=== PATIENT | female | born 1945 | race Caucasian/White ===

== ENCOUNTER 2017-01-08 14:07 | Inpatient (IN) | payer OTHER, MEDICARE ==
[2017-01-08] MEDS ORDERED: ONDANSETRON DISINTEGRATING 4 MG TAB PO PRN (15:05)
[2017-01-08] MEDS ORDERED: ONDANSETRON 4 MG/2 ML VIAL IVP PRN (15:05)
[2017-01-08] MEDS ORDERED: ACETAMINOPHEN 325 MG TAB PO PRN (15:05)
[2017-01-08] MEDS ORDERED: LACTULOSE 20 GM/30 ML UDCUP PO PRN (15:11)
[2017-01-08] MEDS ORDERED: MAGNESIUM HYDROXIDE 30 ML UDCUP PO PRN (15:11)
[2017-01-08] MEDS ORDERED: BISACODYL 10 MG SUPP PR PRN (15:11)
[2017-01-08] MEDS ORDERED: POLYETHYLENE GLYCOL 3350 17 GM PKT PO PRN (15:11)
[2017-01-08] MEDS ORDERED: ERTAPENEM 1 GM in NS 100 ML IV ONE (15:33)
--- NOTE | 2017-01-08 16:13 | GHP ---
[f rep st] HISTORY AND PHYSICAL DATE OF ADMISSION: 01/08/2017 CHIEF COMPLAINT: Lumbar diskitis. HISTORY OF PRESENT ILLNESS: Patient is a 71-year-old female who was transferred from [facility] today with a history of MSSA bacterermia and lumbar discitis, adrenal insufficiency, and hypothyroidism. Diagnosed with diskitis in October and has been on Ancef since discharge 11/13/[address] Solo with ID. She was seen at [facility] by Dr. Bailey and patient strongly preferred his care thus was transferred here. MRI 01/07/17 shows increased enhancement at L4-L5. She presented to ER, because, she suddenly developed severe pain from her lumbar region up to her neck which is different from her normal pain. Normally has burning sensation/numbness extending from left hip down the leg. She has had urinary incontinence since October, but denies bowel incontinence. No leg weakness, fevers, chills or sweats. No nausea, vomiting, diarrhea. No falls. No chest pain or shortness of breath. Was seen by ID at [facility] yesterday and they [facility]. Of note, she also underwent MRCP due to transaminitis and it showed significant thickening and inflammation involving the 2nd and 3rd portions of duodenum suggestive of duodenitis. Fluid extends to the right anterior perirenal space with a small amount of ascites around the liver. Demonstrated a 2 mm polyp or gallstone within the gallbladder. No evidence of cholecystitis or cholelithiasis. REVIEW OF SYSTEMS: I completed a 10-point review of systems, negative except as noted in HPI. PAST MEDICAL HISTORY: 1. Hypothyroidism. 2. Vertebral osteomyelitis on antibiotics since November 13, 2016. 3. Adrenal insufficiency. 4. Chronic pain with continuous opiate use. 5. Collagenous colitis. 6. Obesity. PAST SURGICAL HISTORY: . FAMILY HX: no CAD SOCIAL HISTORY: Lives in [place] with her who is disabled and 89. Denies alcohol, tobacco or illicits. Has 1 son. Her PCP is Dr. Parekh. Vending Supervisor is Dr. Lord. ALLERGIES: Compazine. MEDICATIONS: Awaiting reconciliation. PHYSICAL EXAM: VITAL SIGNS: Temperature 36.5, blood pressure 114/72, heart rate 80, respirations 16, 91% on 1 L. GENERAL: Patient appears tired. HEENT: PERRLA. EOMI. Very dry mucous membranes. CV: Regular rate and rhythm. No murmurs, gallops, or rubs. LUNGS: Clear to auscultation bilaterally. ABDOMEN: Soft, nontender, nondistended. Positive bowel sounds. : No suprapubic or CVA tenderness. MUSCULOSKELETAL: Decreased muscle strength left lower extremity. Mild lumbar tenderness over lumbar spine with palpation. NEURO: 2-12 intact. Reports normal sensation to touch bilaterally. Negative straight leg test. PSYCH: Alert and oriented x3. LABS: Pending here. IMAGING: Ultrasonogram abdomen 01/07/2017: 6 mm gallbladder wall polyp. Tiny amount of ascitic fluid along Morison pouch. MRI L-spine: Multilevel lumbar disk pathology. The appearance of the L4-L5 disk space has worsened compared to previous study. This is consistent with diskitis and osteomyelitis. There is an extensive enhancement of the anterior epidural space centered at L4-L5. There is no evidence of epidural abscess. MRCP shows significant thickening and inflammation involving the 2nd and 3rd portions of the duodenum suggestive of duodenitis. Fluids extends to the right anterior perirenal space with a small amount of ascites around the liver. 2 mm polyp or gallstone within dependent within the gallbladder. Diskitis and osteomyelitis at L4-L5 disk space. ASSESSMENT AND PLAN: 1. Progressive vertebral osteomyelitis: presented with worsening back pain over the last week. MRI shows increased enhancement at L4-L5. Dr. Bailey and Dr. Serrano are evaluating patient. Suspect she will require debridement given extensive course of abx and no improvement. Continue Invanz. Awaiting imaging and culture data from OSH. TTE October 2016 negative for endocarditis. PT/OT. 2. Right upper quadrant pain with transaminitis: intermittent problem since the patient's hospitalization in October. CT at that time was unrevealing for biliary pathology. MRCP 01/07/17 showed duodenal wall thickening suggestive of duodenitis. No evidence of cholecystitis. Repeating a CMP here. We will continue Invanz. 3. Acute on chronic pain: secondary to diskitis. We will continue her gabapentin and OxyContin with a bowel regimen. 4. Secondary adrenal insufficiency. followed by Dr. Lord as an outpatient. Cont hydrocortisone. 5. History of collagenous colitis. Continue budesonide. 6. Hypothyroid. Synthroid. 7. Diet regular. 8. DVT prophylaxis. 9. SCDs in case of upcoming intervention. Disp: requires inpatient admission given progressive diskitis warranting IV antibiotics and possible surgical intervention. /[id number]/MODL MTDD
[2017-01-08] MEDS: GABAPENTIN 300 MG CAP PO SCH ×2 (16:14→21:19)
[2017-01-08] MEDS: oxyCODONE IR 5 MG TAB PO PRN ×2 (16:14→19:34)
[2017-01-08] MEDS: NS 1,000 ML IV SCH (16:34)
[2017-01-08 17:22] LABS: ALANINE AMINOTRANSFERASE 61 IU/L (9-52); ALBUMIN 2.4 g/dL (3.5-5.0); ALKALINE PHOSPHATASE 462 IU/L (38-126); ANION GAP 6 mEq/L (8-16); ASPARTATE AMINOTRANSFERASE 91 IU/L (14-46); BILIRUBIN,TOTAL 2.4 mg/dL (0.1-1.4); CALCIUM 8.7 mg/dL (8.5-10.4); CARBON DIOXIDE 26 mEq/l (22-31); CHLORIDE 99 mEq/L (97-110); CREATININE 0.5 mg/dL (0.6-1.0); GLOMERULAR FILTRATION RATE > 60; GLUCOSE 83 mg/dL (70-100); SODIUM 131 mEq/L (134-144); TOTAL PROTEIN 4.9 g/dL (6.3-8.2)
[2017-01-08 17:23] LABS: HEMATOCRIT 38.2 % (38.0-47.0); HEMOGLOBIN 12.5 g/dL (12.6-16.3); MEAN CELL HEMOGLOBIN 30.6 pg (27.9-34.1); MEAN CELL HEMOGLOBIN CONCENTR. 32.7 g/dL (32.4-36.7); MEAN CELL VOLUME 93.6 fL (81.5-99.8); RED BLOOD CELL COUNT 4.08 10^6/uL (4.18-5.33)
[2017-01-08 17:45] LABS: BILIRUBIN-CONJUGATED 1.3 mg/dL (0.0-0.5); BILIRUBIN-UNCONJUGATED 1.1 mg/dL (0.0-1.1)
--- NOTE | 2017-01-08 20:54 | GCON ---
[f rep st] CONSULTATION INFECTIOUS DISEASE CONSULTATION. DATE OF CONSULTATION: 01/08/2017 REFERRING PHYSICIAN: Cherie Rose MD REASON FOR CONSULTATION: MSSA lumbar discitis. HISTORY OF PRESENT ILLNESS: The patient is a 71-year-old female who developed MSSA bacteremia assoc iated with lumbar discitis in mid October. She has been receiving care for her bacteremia and diskiti s at [facility] and has been followed by the Infectious Disease service there. The miguel ent has received treatment with cefazolin 6 g per day by continuous infusion which she was continuin g up until she was rehospitalized at [facility] over the last 48 hours. The patient describes de veloping the abrupt onset of severe low back pain 2 days ago with radiation to the neck. She had so me associated nausea as well. This prompted repeat evaluation at [facility] at which point in [facility] she was noted to have abnormal liver function tests with an alkaline phosphatase of 468, AST of 7 4 and ALT of 133 with a bilirubin of 2.0. These were increased when compared to her prior labs. Ad ditionally, her C-reactive protein was noted to be substantially increased. On 12/30/2016, her C-re active protein was noted to be 11 with a normal range of less than 10. The patient underwent furthe r evaluation at [facility] including MRCP which showed evidence of duodenitis but no evidence of biliary obstruction. Her cefazolin was changed to ertapenem for activity against biliary pathogens and continued activity against MSSA. Consideration was also given to cefazolin as a potential etiol ogy for her liver enzyme abnormalities. Blood cultures were repeated and currently are no growth to date. She also underwent repeat MRI of the spine which shows worsening vertebral osteomyelitis wit h anterior epidural enhancement but no epidural abscess. The patient has been followed by Dr. Jean barth from Neurosurgery and she requested transfer to [facility] for ongoing care by Castillo Bailey. She has had an interim MRI in November with the results of that MRI not available to me tocastillo dillard. She does not feel like she has had significant improvement in her back pain during the course o f her treatment. Evaluation at [facility] also revealed an elevated lipase of 781. She does not describe having any fevers, chills, or night sweats. She has been using saccaromyces and notes yulissa t she has not experienced diarrhea with its use. Given the above findings, she is now seen for infe ctious disease consultation. PAST MEDICAL HISTORY: Collagenous colitis on chronic steroids, adrenal insufficiency related to chr onic steroid use, MSSA bacteremia and diskitis as outlined above. Patient did undergo DARRYN at [facility] during initial bacteremia which showed no evidence of endocarditis. Idiopathic lower extrem ity edema. PAST SURGICAL HISTORY: Tonsillectomy. CURRENT MEDICATIONS: Ertapenem 1 g IV daily, Pepcid 20 mg p.o. t.i.d., Neurontin 900 mg p.o. t.i.d. , hydrocortisone 10 mg p.o. b.i.d., Synthroid 125 mcg p.o. daily, OxyContin 20 mg p.o. b.i.d., Singu lair 5 mg p.o. b.i.d. ALLERGIES: Compazine. SOCIAL HISTORY: Patient does not smoke or drink alcohol. She lives in [place]. FAMILY HISTORY: Cerebrovascular disease. REVIEW OF SYSTEMS: Patient does note numbness and tingling in her feet which she has attributed to Neurontin. She has had urinary incontinence over the last several weeks after initially having urin emir retention. Unless otherwise noted, remainder of a 10 system review is unremarkable. PHYSICAL EXAMINATION: VITAL SIGNS: Temperature 36.6, heart rate 90, respiratory rate 18, blood pre ssure 113/55, oxygen saturation 90% percent on room air. GENERAL: Patient is an obese female in no acute distress. She appears nontoxic. She does have pain with movement. HEENT: There is no scle ral icterus, conjunctival injection, or conjunctival petechiae. Oropharynx is clear without lesions . Dentition is in fair repair. There is no nasal discharge. There is no tenderness of the frontal , maxillary, or mastoid area. NECK: Supple without lymphadenopathy or palpable thyromegaly. CHEST : Clear to auscultation bilaterally without adventitious sounds. Respiratory effort is normal. CA RDIOVASCULAR: Regular rate and rhythm without murmurs, gallops, or rubs. ABDOMEN: Soft, nontender , nondistended. There is no palpable organomegaly. Bowel sounds are present. MUSCULOSKELETAL: Th ere is no cyanosis or clubbing. There is 1+ edema of the lower extremities bilaterally. BACK: The re is no tenderness over the cervical, thoracic, or lumbosacral spine to palpation. LYMPHATICS: Th ere are no cervical or supraclavicular nodes. SKIN: Scattered ecchymoses over the upper extremitie s. There is no stigmata of endocarditis. PICC line is present in left upper extremity with no eryt sarina, edema, or drainage. NEUROLOGIC: Patient is alert and interacts appropriately examiner. Cran ial nerves 2-12 are grossly intact. Muscle tone and bulk are normal. Motor strength is 4+/5 in bot h lower extremities. LABORATORY DATA: White blood cell count 16.0, hematocrit 38.2, platelets 188. Differential is not available; creatinine 0.5, bilirubin 2.4, AST 91, ALT 61, alkaline phosphatase 462, albumin 2.4. Bl ood cultures are pending from [facility], MRI at [facility] as outlined in history of present illness. MRCP as outlined in the history of present illness. IMPRESSION: 1. Methicillin sensitive Staphylococcus aureus bacteremia and diskitis with worsening back pain. T he patient has received approximately 9 weeks of cefazolin which represents atypical full treatment course for vertebral osteomyelitis. The MRI report suggests radiographically this appears to be wor sening. Failures of medical therapy typically are related to epidural abscess formation or progress claude bone disease with poor antibiotic penetration. I have asked for her disc to be loaded on our SOPATec C system so these can be reviewed with our Radiologist, and Dr. Bailey. She currently is covered by ertapenem in terms of ongoing antibiotic therapy. 2. Increased liver enzymes with cholestatic pattern: MRCP shows no biliary obstruction. This may be drug related cholestasis with cefazolin a possibility. Given the elevation in lipase, concomitan t contribution from pancreatitis is also a consideration which also could be associated with worseni ng back pain. Her cefazolin has been discontinued, she is now on ertapenem. RECOMMENDATIONS: 1. Continue ertapenem pending blood cultures from [facility]. If blood cultures remain negative , would favor transitioning back to more typical staphylococcal therapy such as vancomycin. 2. Await MRIs from October, November and December to be loaded onto our PAC system so these can be reviewed w [facility]. It will be important to try to discern if this represents worsening diskitis/os teomyelitis or if any drainable focus is present. 3. We will review above findings with Dr. Bailey. 4. Follow blood cultures at [facility] tomorrow. 5. Continue to follow liver function over time after discontinuation of cephazolin. Thank you for this consultation. We will continue to follow patient with you. /[id number]/MODL
[2017-01-08] MEDS: MONTELUKAST SODIUM 10 MG TAB PO SCH (21:19)
[2017-01-08] MEDS: SENNOSIDES/DOCUSATE SODIUM TAB PO SCH (21:19)
[2017-01-08] MEDS: FAMOTIDINE 20 MG TAB PO SCH (21:19)
[2017-01-08] MEDS ORDERED: GABAPENTIN 300 MG CAP PO SCH (22:00)
[2017-01-09] MEDS: NS 1,000 ML IV SCH (04:41)
[2017-01-09 05:02] LABS: HEMOGLOBIN 11.6 g/dL (12.6-16.3); MEAN CELL HEMOGLOBIN 30.1 pg (27.9-34.1); MEAN CELL HEMOGLOBIN CONCENTR. 32.2 g/dL (32.4-36.7); MEAN CELL VOLUME 93.3 fL (81.5-99.8); RED BLOOD CELL COUNT 3.86 10^6/uL (4.18-5.33); RED CELL DISTRIBUTION WIDTH 13.1 % (11.5-15.2)
[2017-01-09] MEDS: oxyCODONE IR 5 MG TAB PO PRN ×3 (05:04→21:16)
[2017-01-09 05:27] LABS: ANION GAP 6 mEq/L (8-16); CALCIUM 8.3 mg/dL (8.5-10.4); CARBON DIOXIDE 25 mEq/l (22-31); CHLORIDE 103 mEq/L (97-110); CREATININE 0.5 mg/dL (0.6-1.0); GLOMERULAR FILTRATION RATE > 60; GLUCOSE 82 mg/dL (70-100); POTASSIUM 3.6 mEq/L (3.5-5.2); SODIUM 134 mEq/L (134-144)
[2017-01-09] MEDS: LEVOTHYROXINE 125 MCG TAB PO SCH (07:44)
--- NOTE | 2017-01-09 08:00 | GCON ---
[f rep st] CONSULTATION CONSULTATION HISTORY AND PHYSICAL. DATE OF CONSULTATION: 01/09/2017 CHIEF COMPLAINT: Lumbar diskitis L4-5. HISTORY OF PRESENT ILLNESS: The patient is a 71-year-old female who was admitted to the Internal Me dicine service after she was transferred from [facility]. She has a history of MSSA baldomero teremia, lumbar diskitis, adrenal insufficiency and hypothyroidism. She was diagnosed with diskitis in October of this year and has been on Ancef for approximately the last 8 weeks. She followed up [facility] Dr. Solo with ID. She was seen at [facility] with Dr. Bailey and the patient strongly pref erred his care and thus was transferred from [facility] here to [facility] yester day. She presented to the ER because she suddenly developed severe pain from her lumbar region to er neck which was different from her normal pain. She describes normally has some burning sensation and numbness extending from the left hip down the leg. She has had urinary incontinence since Freddie h but denies any bowel incontinence. She denies any leg weakness. She is able to ambulate but has a terrible lower back pain and also has pain in the left leg, mainly in the anterior and lateral thi gh. She was switched from her normal antibiotic to Invanz on 01/08. She also has a history of unde rgoing an MRCP due to transaminitis that showed significant thickening and inflammation involving th e 2nd and 3rd portion of the duodenum, suggestive of duodenitis. REVIEW OF SYSTEMS: Complete 10-point review of systems was reviewed and negative except noted in HP I. Also of note, she denies any chest pain or shortness of breath. No abdominal pain. No okeefe es. PAST MEDICAL HISTORY: Significant for the followin. Hypothyroidism. 2. Vertebral osteomyelitis on antibiotics since October of 2016. 3. Adrenal insufficiency. 4. Chronic pain with continuous opioid use. 5. Colitis. 6. Obesity. PAST SURGICAL HISTORY: . MEDICATIONS: Please see med rec. ALLERGIES: Compazine. SOCIAL HISTORY: The patient lives in [place] with her who is disabled. She denies any a lcohol or drug abuse. No tobacco use. She has 1 son. Her PCP is Dr. Parekh. Her Endocrinolog ist is Dr. Lord. PHYSICAL EXAMINATION: GENERAL: This is an awake, alert, oriented female in no acute distress. VIT AL SIGNS: Most recent vital signs, 116/71 with a MAP of 86, heart rate of 83, 16 respirations, 96% on 1 L. Temperature 36.6. HEENT: Head is normocephalic, atraumatic. Pupils are equal, round, jamshid ctive to light. EOMIs intact. Full visual maharaj by confrontation. Ears are patent. Nose is betts nt. NECK: Soft, supple. No midline tenderness. Full range of motion in flexion, extension, later al bending, rotation. RESPIRATORY: Deferred. CARDIAC: Deferred. ABDOMEN: Soft, nontender. No peritoneal signs. and RECTAL: Deferred. NEURO: Patient is awake, alert, oriented to name, walt ce, location, date, time, and situation. Memory is intact to immediate, past, and current events. Speech: No aphasia, dysarthria or dysphonia. Cranial nerves 2-12 grossly intact. Motor: Patient has 5/5 strength in all muscle groups of bilateral upper and lower extremities to include deltoids, biceps, triceps, brachioradialis, wrist flexors and extensors, garnett room worker intrinsic fingers, iliopsoas, qu adriceps, hamstring, plantar flexion, dorsiflexion, EHL testing. Sensation is grossly intact to lig ht touch throughout all dermatome distributions upper and lower extremities. Negative straight leg raise. Negative MARY test. Reflexes of biceps, triceps, brachioradialis, knee jerks, and ankle je rk are 2+/4. Toes are downgoing bilaterally. [employer] negative. Babinski negative. No evidence of clonus. MEDICAL DECISION MAKING/DIAGNOSTIC STUDIES: Laboratory tests obtained 01/09/2017 show a white count of 13.04 with a hemoglobin and hematocrit of 11.6 and 36.0 with a platelet count of 191. Chemistry on 01/09/2017, sodium 134, potassium 3.6, chloride 103, CO2 of 25, BUN 14, creatinine 0.5 and a glu cose of 82. MRI of the lumbar spine shows multilevel lumbar pathology appearance of an L4-5 disk space has worse les compared to previous studies, consistent with diskitis and osteomyelitis. There is extensive en hancement of the anterior epidural space centered at L4-5. No evidence of epidural abscess. IMPRESSION: 1. Acute on chronic pain. 2. Adrenal insufficiency. 3. Colitis. 4. Hypothyroidism. 5. Obesity. 6. Vertebral osteomyelitis L4-5. PLAN AND DISCUSSION: The patient is a 71-year-old female admitted to the internal medicine service and Infectious Disease was consulted. She has a worsening infection that appears on an MRI of her l umbar spine at L4-5. Dr. Bailey will speak with Dr. Serrano regarding further medical treatment versus surgical treatment for this. We will review through her recent MRI and develop a plan accordingly. I spoke with her briefly about the need for surgery and she definitely would consider this. Would like to speak with Dr. Bailey's regarding plan once that is obtained. All questions and concerns w ere answered. Patient understands and agrees. /[id number]/MODL
[2017-01-09] MEDS ORDERED: ERTAPENEM 1 GM in NS 100 ML IV SCH (09:00)
[2017-01-09] MEDS ORDERED: BUDESONIDE 3 MG EC CAP PO SCH (09:00)
[2017-01-09] MEDS: GABAPENTIN 300 MG CAP PO SCH ×3 (09:00→21:13)
[2017-01-09] MEDS: BUDESONIDE 0.5 MG PO SCH (09:01)
[2017-01-09] MEDS: MONTELUKAST SODIUM 10 MG TAB PO SCH ×2 (09:01→21:14)
[2017-01-09] MEDS: HYDROCORTISONE 10 MG TAB PO SCH ×2 (09:01→14:19)
[2017-01-09] MEDS: FAMOTIDINE 20 MG TAB PO SCH ×3 (09:01→21:14)
[2017-01-09] MEDS: SENNOSIDES/DOCUSATE SODIUM TAB PO SCH ×2 (09:04→21:21)
[2017-01-09 10:06] LABS: ALBUMIN 2.1 g/dL (3.5-5.0); BILIRUBIN,TOTAL 1.4 mg/dL (0.1-1.4); BILIRUBIN-CONJUGATED 0.9 mg/dL (0.0-0.5); BILIRUBIN-UNCONJUGATED 0.5 mg/dL (0.0-1.1); TOTAL PROTEIN 4.4 g/dL (6.3-8.2)
--- NOTE | 2017-01-09 10:19 | PCMIDPN ---
Assessment/Plan: Assessment/Plan: * Lumbar diskitis with concomitant MSSA bacteremia: MRI images reviewed showing progressive destructive changes at L4. Also has progressive spinal stenosis with epidural enhancement but no abscess. Patient now has received full treatment course of cefazolin. Given progression despite course of cefazolin, think this will require surgical debridement for resolution. Have discussed with Dr. Bailey with plans tentatively to proceed with debridement on Friday. Given possibility of cholestatic hepatitis with cefazolin, will transition to vancomycin for continued IV antibiotic therapy. * Abnormal liver function tests: MRCP does show some inflammatory change of pancreas as well and lipase previously elevated. Potentially these findings are due to cefazolin although passage of stone also of consideration. Blood cultures at [facility] are negative. Will therefore discontinue ertapenem and modify treatment for diskitis as outlined above. Follow up repeat LFTs and lipase today. Time spent, greater than 35 minutes, of which half was spent in education/ counseling/coordination of care related to progressive lumbar diskitis and abnormal liver function test. 01/09/17 10:15 01/09/17 10:18 01/09/17 10:20 Subjective: Patient with persistent low back pain. No abdominal pain. Objective: Vital Signs Temp Pulse Resp BP Pulse Ox 36.8 C 93 20 132/70 H 90 L 01/09/17 07:57 01/09/17 07:57 01/09/17 07:57 01/09/17 07:57 01/09/17 07:57 Laboratory Results 01/09/17 04:40 01/09/17 04:40 Ertapenem # 3 Blood cultures at [facility] no growth to date (spoke with their microbiology lab this a.m.) MRIs of spine reviewed and interpreted by me with Radiology this a.m. showing progressive bony destruction at L4 with persistent disc fluid and enhancement; epidural enhancement present with spinal canal narrowing but no epidural abscess Pancreatic inflammatory change on MRCP also evident - Physical Exam General Appearance: alert, no apparent distress EENT: pharynx normal, No conjunctival petechiae Respiratory: lungs clear, No respiratory distress Cardiac/Chest: regular rate, rhythm, systolic murmur (2/6 left upper sternal border) Abdomen: non-tender, No distended Back: spine tenderness (Lumbar region) ICD10 Worksheet Patient Problems: Problems Problem Status Onset Bacteremia due to Staphylococcus aureus Acute Vertebral osteomyelitis Acute Lumbar discitis Acute
--- NOTE | 2017-01-09 14:01 | HOSPPROG ---
Hospitalist Progress Note Assessment/Plan: 71y female transferred from [facility]. This is my first encounter with this pt. Chart reviewed. D/W Dr noel. * Lumbar diskitis with concomitant MSSA bacteremia: MRI images show progressive destructive changes at L4. progressive spinal stenosis with epidural enhancement but no abscess. Patient has received full treatment course of cefazolin. Given progression despite course of cefazolin may require surgical debridement for resolution. Plan for proceed with debridement on Friday. Given possibility of cholestatic hepatitis with cefazolin, will transition to vancomycin for continued IV antibiotic therapy. * Abnormal liver function tests: MRCP does show some inflammatory change of pancreas as well and lipase previously elevated. Potentially these findings are due to cefazolin although passage of stone also of consideration. Blood cultures at [facility] are negative. repeat LFTs and lipase today * Cough order CXR per pt request mucinex * Dispo unclear, need further treatment and evaluation Subjective: Up in chair. Questions answered. No pain currently. Objective: Vital Signs Temp Pulse Resp BP Pulse Ox 36.8 C 93 20 132/70 H 90 L 01/09/17 07:57 01/09/17 07:57 01/09/17 07:57 01/09/17 07:57 01/09/17 07:57 Laboratory Results 01/09/17 04:40 01/09/17 04:40 - Physical Exam Constitutional: appears nourished, not in pain, obese Eyes: PERRL, anicteric sclera, EOMI Ears, Nose, Mouth, Throat: moist mucous membranes, hearing normal, ears appear normal Cardiovascular: No JVD, No tachycardia, No edema Respiratory: no respiratory distress, no rales or rhonchi, reduced air movement Gastrointestinal: No tenderness, No ascites, No guarding Skin: warm, normal color, No erythema Musculoskeletal: normal joint ROM, no joint effusions, generalized weakness Neurologic: AAOx3 Psychiatric: interacting appropriately, not anxious, not encephalopathic ICD10 Worksheet Patient Problems: Problems Problem Status Onset Bacteremia due to Staphylococcus aureus Acute Lumbar discitis Acute Vertebral osteomyelitis Acute
[2017-01-09] MEDS: guaiFENesin 600 MG TAB.ER PO SCH ×2 (14:19→21:14)
[2017-01-10] MEDS: oxyCODONE IR 5 MG TAB PO PRN ×4 (03:39→22:39)
[2017-01-10] MEDS: LEVOTHYROXINE 125 MCG TAB PO SCH (05:24)
--- NOTE | 2017-01-10 08:21 | PCMIDPN ---
Assessment/Plan: #MSSA bacteremia and lumbar diskitis/OM with focus at L4, progressive destructive lesions despite full course of 8 weeks of IV cefazolin. concern over cholestatic hepatitis with cefazolin therefore started on vancomycin today. CRP still quite elevated, unclear if solely due to discitis/OM, see details below. --vancomycin started today, 1gm IV q12h --surgery planned for Friday, appreciate neurosurg involvement #Elevated LFTs : AST/ALT improved, AP still up, T bili improved. No clear abdominal pain. If AP remains elevated, may have consider additional imaging. #productive cough with normal chest x-ray other than small pleural effusions bilaterally. Mild hypoxia. If symptoms persistent #leukocytosis: Stable Case discussed with Vaishali Hilliard NP 01/10/17 14:34 Subjective: the patient describes intermittent wheezes and productive cough, concerned about delay for surgical intervention on Friday. No subjective fevers or chills. No abdominal pain no diarrhea, no itching patient also expresses concern over toxicity related to vancomycin Objective: Vital Signs Temp Pulse Resp BP Pulse Ox 36.7 C 78 18 107/64 97 01/10/17 07:42 01/10/17 07:42 01/10/17 07:42 01/10/17 07:42 01/10/17 07:42 Laboratory Results 01/09/17 04:40 01/09/17 04:40 01/09/17 01/10/17 01/11/17 05:59 05:59 05:59 Intake Total 650 Balance 650 Laboratory Tests 01/08/17 01/09/17 16:30 04:40 Conjugated Bilirubin 1.3 H 0.9 H AST 91 H 73 H ALT 61 H 92 H Alkaline Phosphatase 462 H 423 H Laboratory Tests 01/10/17 01/10/17 11:35 11:35 WBC 13.48 H Neut % (Auto) 81.3 H Lymph % (Auto) 4.3 L Creatinine 0.5 L AST 60 H ALT 50 Alkaline Phosphatase 568 H C-Reactive Protein 251.9 H - Physical Exam General Appearance: alert, no apparent distress EENT: dry mucous membranes, No pharyngeal erythema, No tonsillar exudate, No thrush Respiratory: lungs clear, No accessory muscle use, No crackles, No wheezing Neck: supple, No lymphadenopathy (L), No lymphadenopathy (R) Cardiac/Chest: regular rate, rhythm, systolic murmur Extremities: pedal edema Abdomen: normal bowel sounds, non-tender, soft Pelvic Exam: No crabtree Skin: No rash Neuro/Psych: alert, normal mood/affect, oriented x 3 - Line/s LUE PICC Lines: No drainage, No erythema - Time Spent With Patient Time Spent with Patient: greater than 35 minutes Time Spent with Patient: Greater than 35 minutes spent on this patients care, greater than 50% of time spent counseling, educating, and coordinating care regarding the above mentioned plan. ICD10 Worksheet Patient Problems: Problems Problem Status Onset Bacteremia due to Staphylococcus aureus Acute Lumbar discitis Acute Vertebral osteomyelitis Acute
[2017-01-10] MEDS: VANCOMYCIN HCL/NORMAL SALINE 250 ML IV SCH ×2 (08:47→21:30)
[2017-01-10] MEDS: GABAPENTIN 300 MG CAP PO SCH ×3 (08:47→21:28)
[2017-01-10] MEDS: guaiFENesin 600 MG TAB.ER PO SCH ×2 (08:48→21:28)
[2017-01-10] MEDS: MONTELUKAST SODIUM 10 MG TAB PO SCH ×2 (08:48→21:28)
[2017-01-10] MEDS: SENNOSIDES/DOCUSATE SODIUM TAB PO SCH ×2 (08:48→21:30)
[2017-01-10] MEDS: HYDROCORTISONE 10 MG TAB PO SCH ×2 (08:48→14:48)
[2017-01-10] MEDS: FAMOTIDINE 20 MG TAB PO SCH ×3 (08:48→21:29)
[2017-01-10] MEDS: BUDESONIDE 0.5 MG PO SCH (09:33)
--- NOTE | 2017-01-10 10:32 | NEUSURGPN ---
Assessment/Plan: A: 71 yo F with discitis at L45 Plan: -To OR on Friday with Dr Bailey for L3-5 laminectomy with possible fusion -PT/OT -Pain management -Consents left at bedside -NPO friday at midnight for sx Friday -Pt d/w Dr Bailey -Pt understands plan for surgery -Call NS with any issues - we will sign off for and see again on Friday Subjective: Pt resting in bed, understands plan for surgery. Pain well managed if she doens' t move much. Objective: AAOx3 NAD VSS MAEx4 Motor 5/5 BLE +LT Urinary Catheter in Place: No - Physician Discussed Patient with : [facility] Physical Exam - Vitals, I&O, Labs I and O 01/09/17 01/10/17 01/11/17 05:59 05:59 05:59 Intake Total 650 Balance 650 Weight 79.4 kg Intake: Oral (ml) 650 Other: Intake Quantity Yes Yes Sufficient Number of Voids Toilet 1 2 Vital Signs Temp Pulse Resp BP Pulse Ox 36.7 C 78 18 107/64 97 01/10/17 07:42 01/10/17 07:42 01/10/17 07:42 01/10/17 07:42 01/10/17 07:42 Laboratory Results 01/09/17 04:40 01/09/17 04:40 ICD10 Worksheet Patient Problems: Problems Problem Status Onset Bacteremia due to Staphylococcus aureus Acute Lumbar discitis Acute Vertebral osteomyelitis Acute
[2017-01-10 11:45] LABS: % IMMATURE GRANULYOCYTES 1.7 % (0.0-1.1); ABSOLUTE IMMATURE GRANULOCYTES 0.23 10^3/uL (0.00-0.10); ADD DIFF? NO; ADD MORPH? NO; ADD SCAN? NO; ATYPICAL LYMPHOCYTE FLAG 0 (0-99); FRAGMENT RBC FLAG 0 (0-99); HEMATOCRIT 34.9 % (38.0-47.0); HEMOGLOBIN 11.6 g/dL (12.6-16.3); LEFT SHIFT FLG 20 (0-99); LIPEMIA HEMOLYSIS FLAG 80 (0-99); MEAN CELL HEMOGLOBIN CONCENTR. 33.2 g/dL (32.4-36.7); MEAN CELL VOLUME 93.3 fL (81.5-99.8); MEAN PLATELET VOLUME 10.5 fL (8.7-11.7); PLATELET CLUMPS FLAG 10 (0-99); PLATELET COUNT 184 10^3/uL (150-400); RED BLOOD CELL COUNT 3.74 10^6/uL (4.18-5.33); RED CELL DISTRIBUTION WIDTH 13.2 % (11.5-15.2)
--- NOTE | 2017-01-10 11:52 | HOSPPROG ---
Hospitalist Progress Note Assessment/Plan: 71y female transferred from [facility]. * Lumbar diskitis with MSSA bacteremia: MRI images show progressive destructive changes at L4. progressive spinal stenosis with epidural enhancement but no abscess. Patient has received full treatment course of cefazolin. Given progression despite course of cefazolin require surgical debridement for resolution. Plan for proceed with debridement on Friday. Given possibility of cholestatic hepatitis with cefazolin, will transition to vancomycin for continued IV antibiotic therapy. * Abnormal liver function tests: MRCP does show some inflammatory change of pancreas as well and lipase previously elevated. Potentially these findings are due to cefazolin although passage of stone also of consideration. Blood cultures at [facility] are negative. repeat LFTs and lipase today * Cough CXR shows ATX mucinex breathing treatment, IS * Dispo unclear, need further treatment and evaluation Subjective: Feeling very tired. Concerned about cough. Cough hurts her back. Objective: Vital Signs Temp Pulse Resp BP Pulse Ox 36.7 C 78 18 107/64 97 01/10/17 07:42 01/10/17 07:42 01/10/17 07:42 01/10/17 07:42 01/10/17 07:42 Laboratory Results 01/10/17 11:35 01/09/17 01/10/17 01/11/17 05:59 05:59 05:59 Intake Total 650 Balance 650 - Physical Exam Constitutional: appears nourished, chronically ill appearing, obese Eyes: PERRL, anicteric sclera, EOMI Ears, Nose, Mouth, Throat: moist mucous membranes, hearing normal, ears appear normal Cardiovascular: No JVD, No tachycardia, No edema Respiratory: no respiratory distress, no rales or rhonchi, reduced air movement Gastrointestinal: No tenderness, No ascites, No guarding Skin: warm, normal color, No erythema Musculoskeletal: no joint effusions, muscular tenderness, generalized weakness Neurologic: AAOx3 Psychiatric: interacting appropriately, not anxious, not encephalopathic, thought process linear ICD10 Worksheet Patient Problems: Problems Problem Status Onset Bacteremia due to Staphylococcus aureus Acute Vertebral osteomyelitis Acute Lumbar discitis Acute
[2017-01-10 12:44] LABS: ALANINE AMINOTRANSFERASE 50 IU/L (9-52); ALBUMIN 2.3 g/dL (3.5-5.0); ALKALINE PHOSPHATASE 568 IU/L (38-126); ANION GAP 7 mEq/L (8-16); ASPARTATE AMINOTRANSFERASE 60 IU/L (14-46); BILIRUBIN,TOTAL 1.3 mg/dL (0.1-1.4); CALCIUM 8.5 mg/dL (8.5-10.4); CARBON DIOXIDE 26 mEq/l (22-31); CHLORIDE 98 mEq/L (97-110); CREATININE 0.5 mg/dL (0.6-1.0); GLOMERULAR FILTRATION RATE > 60; GLUCOSE 93 mg/dL (70-100); POTASSIUM 3.8 mEq/L (3.5-5.2); SODIUM 131 mEq/L (134-144); TOTAL PROTEIN 4.8 g/dL (6.3-8.2)
[2017-01-10 13:07] LABS: C-REACTIVE PROTEIN 251.9 mg/L (<10.0)
[2017-01-11] MEDS: LEVOTHYROXINE 125 MCG TAB PO SCH (05:12)
[2017-01-11] MEDS: oxyCODONE IR 5 MG TAB PO PRN ×2 (05:26→16:16)
[2017-01-11 05:39] LABS: % IMMATURE GRANULYOCYTES 2.5 % (0.0-1.1); ABSOLUTE IMMATURE GRANULOCYTES 0.29 10^3/uL (0.00-0.10); ADD DIFF? NO; ADD MORPH? NO; ADD SCAN? NO; ATYPICAL LYMPHOCYTE FLAG 0 (0-99); FRAGMENT RBC FLAG 0 (0-99); HEMATOCRIT 36.2 % (38.0-47.0); HEMOGLOBIN 11.7 g/dL (12.6-16.3); LEFT SHIFT FLG 20 (0-99); LIPEMIA HEMOLYSIS FLAG 80 (0-99); MEAN CELL HEMOGLOBIN 30.2 pg (27.9-34.1); MEAN CELL HEMOGLOBIN CONCENTR. 32.3 g/dL (32.4-36.7); MEAN CELL VOLUME 93.5 fL (81.5-99.8); MEAN PLATELET VOLUME 10.5 fL (8.7-11.7); PLATELET CLUMPS FLAG 0 (0-99); PLATELET COUNT 233 10^3/uL (150-400); RED BLOOD CELL COUNT 3.87 10^6/uL (4.18-5.33); RED CELL DISTRIBUTION WIDTH 13.2 % (11.5-15.2)
[2017-01-11 05:53] LABS: ALANINE AMINOTRANSFERASE 43 IU/L (9-52); ALBUMIN 2.5 g/dL (3.5-5.0); ALKALINE PHOSPHATASE 601 IU/L (38-126); ANION GAP 9 mEq/L (8-16); ASPARTATE AMINOTRANSFERASE 48 IU/L (14-46); CALCIUM 8.7 mg/dL (8.5-10.4); CARBON DIOXIDE 26 mEq/l (22-31); CHLORIDE 101 mEq/L (97-110); CREATININE 0.5 mg/dL (0.6-1.0); GLOMERULAR FILTRATION RATE > 60; GLUCOSE 73 mg/dL (70-100); POTASSIUM 3.4 mEq/L (3.5-5.2); SODIUM 136 mEq/L (134-144); TOTAL PROTEIN 4.8 g/dL (6.3-8.2)
[2017-01-11] MEDS: VANCOMYCIN HCL/NORMAL SALINE 250 ML IV SCH ×2 (07:49→21:11)
[2017-01-11] MEDS: HYDROCORTISONE 10 MG TAB PO SCH ×2 (08:10→16:15)
[2017-01-11] MEDS: GABAPENTIN 300 MG CAP PO SCH ×3 (08:11→21:12)
[2017-01-11] MEDS: guaiFENesin 600 MG TAB.ER PO SCH ×2 (08:11→21:11)
[2017-01-11] MEDS: FAMOTIDINE 20 MG TAB PO SCH ×3 (08:11→21:11)
[2017-01-11] MEDS: MONTELUKAST SODIUM 10 MG TAB PO SCH ×2 (08:15→21:11)
[2017-01-11] MEDS: BUDESONIDE 0.5 MG PO SCH (08:16)
--- NOTE | 2017-01-11 13:46 | HOSPPROG ---
Hospitalist Progress Note Assessment/Plan: 71-year-old transferred from [facility] where she was being treated for lumbar diskitis with IV cefazolin. she was transferred here after progressive disease was noted on follow-up imaging, she also developed elevated LFTs thought secondary to the cefazolin. # lumbar diskitis at L4 with MSSA bacteremia, she has already undergone a full course of 8 weeks of IV cefazolin. * Vanco 1 g IV q.12 hours * appreciate ID follow-up * surgery planned for Friday # elevated LFTs, enzymes improved, alk-phos still elevated. No abdominal pain. Likely secondary to cephazolin will continue to follow. # Respiratory symptoms, unremarkable chest x-ray with small bilateral effusions. exam is normal today, could consider nebulizers if she becomes hypoxic. 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 Subjective: patient new to pr chart reviewed, back pain adequately controlled no SOB, or chest pain. no abdo pain Objective: Vital Signs Temp Pulse Resp BP Pulse Ox 36.9 C 79 26 H 111/60 95 01/11/17 08:51 01/11/17 08:51 01/11/17 08:51 01/11/17 08:51 01/11/17 08:51 Laboratory Results 01/11/17 05:00 01/11/17 05:00 01/10/17 01/11/17 01/12/17 05:59 05:59 05:59 Intake Total 650 450 Balance 650 450 - Physical Exam Constitutional: chronically ill appearing, obese, uncomfortable Eyes: PERRL, anicteric sclera, EOMI Ears, Nose, Mouth, Throat: moist mucous membranes Cardiovascular: regular rate and rhythym, no murmur, rub, or gallop Respiratory: no respiratory distress, no rales or rhonchi, clear to auscultation , No expiratory wheeze Gastrointestinal: soft, non-tender abdomen Genitourinary: no bladder fullness Skin: warm Neurologic: AAOx3 Psychiatric: interacting appropriately, not anxious, not encephalopathic, No anxious, No depressed ICD10 Worksheet Patient Problems: Problems Problem Status Onset Bacteremia due to Staphylococcus aureus Acute Vertebral osteomyelitis Acute Lumbar discitis Acute
--- NOTE | 2017-01-11 14:52 | PCMIDPN ---
Assessment/Plan: Assessment/Plan: 1. MSSA bacteremia with lumbar diskitis/osteomyelitis: - s/p 8 weeks of cefazolin---now on vanco -for surgery on Friday. -wbc improved. -creatinine stable. -will order trough for this evening - 2. Elevated LFT's - thought to be secondary to Ancef -overall improved , although alk phos going up. nonspecific ,. could be biliary related or bone related -will check USG to further evaluate. meds vanco 1g q12- 01/10/17 Subjective: Afebrile. Denies sob, abd pain or diarrhea. slight decrease in appetite. denies nausea. ongoing back pain. Objective: Vital Signs Temp Pulse Resp BP Pulse Ox 36.9 C 79 26 H 111/60 95 01/11/17 08:51 01/11/17 08:51 01/11/17 08:51 01/11/17 08:51 01/11/17 08:51 Laboratory Results 01/11/17 05:00 01/11/17 05:00 01/10/17 01/11/17 01/12/17 05:59 05:59 05:59 Intake Total 650 450 Balance 650 450 C-Reactive Protein 251.9 mg/L (<10.0) H 01/10/17 11:35 - Physical Exam General Appearance: alert, no apparent distress Respiratory: lungs clear Cardiac/Chest: regular rate, rhythm Extremities: No swelling Abdomen: normal bowel sounds, non-tender, soft, No distended Skin: No rash ICD10 Worksheet Patient Problems: Problems Problem Status Onset Bacteremia due to Staphylococcus aureus Acute Lumbar discitis Acute Vertebral osteomyelitis Acute
[2017-01-11] MEDS: SENNOSIDES/DOCUSATE SODIUM TAB PO SCH ×2 (15:38→21:11)
[2017-01-12] MEDS: LEVOTHYROXINE 125 MCG TAB PO SCH (05:21)
[2017-01-12 05:46] LABS: ADD DIFF? YES; ADD MORPH? NO; ADD SCAN? NO; ATYPICAL LYMPHOCYTE FLAG 0 (0-99); FRAGMENT RBC FLAG 0 (0-99); HEMATOCRIT 33.5 % (38.0-47.0); HEMOGLOBIN 10.9 g/dL (12.6-16.3); LEFT SHIFT FLG 40 (0-99); LIPEMIA HEMOLYSIS FLAG 80 (0-99); MEAN CELL HEMOGLOBIN CONCENTR. 32.5 g/dL (32.4-36.7); MEAN CELL VOLUME 92.3 fL (81.5-99.8); MEAN PLATELET VOLUME 9.9 fL (8.7-11.7); PLATELET CLUMPS FLAG 10 (0-99); PLATELET COUNT 250 10^3/uL (150-400); RED BLOOD CELL COUNT 3.63 10^6/uL (4.18-5.33); RED CELL DISTRIBUTION WIDTH 13.2 % (11.5-15.2)
[2017-01-12 05:52] LABS: ALANINE AMINOTRANSFERASE 51 IU/L (9-52); ALBUMIN 2.1 g/dL (3.5-5.0); ALKALINE PHOSPHATASE 575 IU/L (38-126); ANION GAP 6 mEq/L (8-16); ASPARTATE AMINOTRANSFERASE 57 IU/L (14-46); BILIRUBIN,TOTAL 0.7 mg/dL (0.1-1.4); CALCIUM 8.5 mg/dL (8.5-10.4); CARBON DIOXIDE 29 mEq/l (22-31); CHLORIDE 101 mEq/L (97-110); CREATININE 0.4 mg/dL (0.6-1.0); GLOMERULAR FILTRATION RATE > 60; GLUCOSE 81 mg/dL (70-100); POTASSIUM 3.5 mEq/L (3.5-5.2); SODIUM 136 mEq/L (134-144); TOTAL PROTEIN 4.4 g/dL (6.3-8.2)
[2017-01-12 06:13] LABS: POLYCHROMASIA 1+
[2017-01-12 06:14] LABS: PLATELET ESTIMATE ADEQUATE (ADEQ)
[2017-01-12] MEDS: oxyCODONE IR 5 MG TAB PO PRN ×2 (06:45→15:33)
[2017-01-12] MEDS: VANCOMYCIN HCL/NORMAL SALINE 250 ML IV SCH (09:05)
[2017-01-12] MEDS: GABAPENTIN 300 MG CAP PO SCH ×3 (09:05→21:40)
[2017-01-12] MEDS: guaiFENesin 600 MG TAB.ER PO SCH ×2 (09:06→21:40)
[2017-01-12] MEDS: MONTELUKAST SODIUM 10 MG TAB PO SCH ×2 (09:06→21:40)
[2017-01-12] MEDS: FAMOTIDINE 20 MG TAB PO SCH ×3 (09:07→21:40)
[2017-01-12] MEDS: HYDROCORTISONE 10 MG TAB PO SCH ×2 (09:07→14:18)
[2017-01-12] MEDS: BUDESONIDE 0.5 MG PO SCH (10:19)
[2017-01-12] MEDS: IPRATROPIUM/ALBUTEROL 3 ML DEYVIAL IH PRN (10:34)
--- NOTE | 2017-01-12 14:07 | HOSPPROG ---
Hospitalist Progress Note Assessment/Plan: 71-year-old transferred from [facility] where she was being treated for lumbar diskitis with IV cefazolin. she was transferred here after progressive disease was noted on follow-up imaging, she also developed elevated LFTs thought secondary to the cefazolin. # lumbar diskitis at L4 with MSSA bacteremia, she has already undergone a full course of 8 weeks of IV cefazolin. * Vanco 1 g IV q.12 hours * appreciate ID follow-up * surgery planned for Friday # elevated LFTs, enzymes improved, alk-phos still elevated. No abdominal pain. Likely secondary to cephazolin but ultrasound checked that did show gallstones without evidence acute cholecystitis # Respiratory symptoms, unremarkable chest x-ray with small bilateral effusions. exam is normal today, could consider nebulizers if she becomes hypoxic. 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 Subjective: No new complaints today Objective: Vital Signs Temp Pulse Resp BP Pulse Ox 36.7 C 68 16 114/60 93 01/12/17 08:00 01/12/17 10:30 01/12/17 10:30 01/12/17 08:00 01/12/17 10:30 Laboratory Results 01/12/17 05:27 01/12/17 05:27 01/11/17 01/12/17 01/13/17 05:59 05:59 05:59 Intake Total 450 300 Output Total 3 Balance 447 300 - Physical Exam Constitutional: obese, uncomfortable Cardiovascular: regular rate and rhythym, no murmur, rub, or gallop Respiratory: no respiratory distress, clear to auscultation Neurologic: AAOx3 Psychiatric: interacting appropriately ICD10 Worksheet Patient Problems: Problems Problem Status Onset Bacteremia due to Staphylococcus aureus Acute Vertebral osteomyelitis Acute Lumbar discitis Acute
[2017-01-12] MEDS: SENNOSIDES/DOCUSATE SODIUM TAB PO SCH ×2 (14:57→21:40)
--- NOTE | 2017-01-12 16:20 | PCMIDPN ---
Assessment/Plan: Assessment/Plan: 1. MSSA bacteremia with lumbar diskitis/osteomyelitis: - s/p 8 weeks of cefazolin---now on vanco -for surgery on Friday. -wbc improved. -creatinine stable. -trough a bit low. will adjust dosing of vanco. -care coordinated with Rn. plan of care reviewed with patient. - 2. Elevated LFT's - thought to be secondary to Ancef -overall improved -USG noted. REviewed results with patient. meds vanco 1g q12- 01/10/17-01/12/17---changed to 1.25gm q12 on 01/12/17 Subjective: Afebrile. denies abd pain, nausea. appetite intact. denies sob. Objective: Vital Signs Temp Pulse Resp BP Pulse Ox 36.7 C 68 16 114/60 93 01/12/17 08:00 01/12/17 10:30 01/12/17 10:30 01/12/17 08:00 01/12/17 10:30 Laboratory Results 01/12/17 05:27 01/12/17 05:27 01/11/17 01/12/17 01/13/17 05:59 05:59 05:59 Intake Total 450 300 Output Total 3 Balance 447 300 C-Reactive Protein 251.9 mg/L (<10.0) H 01/10/17 11:35 - Physical Exam General Appearance: alert, no apparent distress Respiratory: lungs clear Cardiac/Chest: regular rate, rhythm Extremities: No swelling Abdomen: normal bowel sounds, non-tender, soft, No distended Skin: No erythema ICD10 Worksheet Patient Problems: Problems Problem Status Onset Bacteremia due to Staphylococcus aureus Acute Lumbar discitis Acute Vertebral osteomyelitis Acute
[2017-01-12] MEDS: VANCOMYCIN 1.25 GM in D5W 250 ML IV SCH (21:41)
[2017-01-13] MEDS: LEVOTHYROXINE 125 MCG TAB PO SCH (05:26)
[2017-01-13 06:06] LABS: ALANINE AMINOTRANSFERASE 43 IU/L (9-52); ALBUMIN 2.2 g/dL (3.5-5.0); ALKALINE PHOSPHATASE 501 IU/L (38-126); ANION GAP 8 mEq/L (8-16); ASPARTATE AMINOTRANSFERASE 34 IU/L (14-46); BILIRUBIN,TOTAL 0.6 mg/dL (0.1-1.4); CALCIUM 8.4 mg/dL (8.5-10.4); CARBON DIOXIDE 30 mEq/l (22-31); CHLORIDE 101 mEq/L (97-110); CREATININE 0.4 mg/dL (0.6-1.0); GLOMERULAR FILTRATION RATE > 60; GLUCOSE 78 mg/dL (70-100); POTASSIUM 3.3 mEq/L (3.5-5.2); SODIUM 139 mEq/L (134-144); TOTAL PROTEIN 4.3 g/dL (6.3-8.2)
[2017-01-13] MEDS ORDERED: NS 1,000 ML IV SCH (06:15)
[2017-01-13] MEDS: FAMOTIDINE 20 MG TAB PO SCH ×3 (07:40→23:30)
[2017-01-13] MEDS: HYDROCORTISONE 10 MG TAB PO SCH ×2 (07:43→13:48)
[2017-01-13] MEDS: GABAPENTIN 300 MG CAP PO SCH ×3 (07:44→23:29)
[2017-01-13] MEDS: VANCOMYCIN 1.25 GM in D5W 250 ML IV SCH ×2 (07:47→23:50)
[2017-01-13] MEDS: BUDESONIDE 0.5 MG PO SCH (07:56)
--- NOTE | 2017-01-13 08:50 | HOSPPROG ---
Hospitalist Progress Note Assessment/Plan: 71-year-old transferred from [facility] where she was being treated for lumbar diskitis with IV cefazolin. she was transferred here after progressive disease was noted on follow-up imaging, she also developed elevated LFTs thought secondary to the cefazolin. # lumbar diskitis at L4 with MSSA bacteremia, she has already undergone a full course of 8 weeks of IV cefazolin. * Vanco 1 g IV q.12 hours * appreciate ID follow-up * surgery planned for later today. # elevated LFTs, enzymes improved, alk-phos still elevated but improving. No abdominal pain. Likely secondary to cephazolin. Ultrasound shows no stone but did have some polyps. # Respiratory symptoms, unremarkable chest x-ray with small bilateral effusions. exam is normal today, could consider nebulizers if she becomes hypoxic. 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 Subjective: complains of some hip discomfort which is mild and she thinks she needs to walk more. Objective: Vital Signs Temp Pulse Resp BP Pulse Ox 36.8 C 72 18 113/58 L 90 L 01/13/17 07:28 01/13/17 07:28 01/13/17 07:28 01/13/17 07:28 01/13/17 07:28 Laboratory Results 01/12/17 05:27 01/13/17 05:35 01/12/17 01/13/17 01/14/17 05:59 05:59 05:59 Intake Total 450 300 Output Total 3 Balance 447 300 - Physical Exam Constitutional: appears nourished, not in pain Eyes: PERRL, anicteric sclera, EOMI Ears, Nose, Mouth, Throat: moist mucous membranes Cardiovascular: regular rate and rhythym Respiratory: no respiratory distress, clear to auscultation Gastrointestinal: normoactive bowel sounds, soft, non-tender abdomen Genitourinary: no bladder fullness Skin: warm, normal color Musculoskeletal: normal joint ROM, other (back pain), No joint tenderness (hips) Neurologic: AAOx3 Psychiatric: interacting appropriately, not anxious, not encephalopathic ICD10 Worksheet Patient Problems: Problems Problem Status Onset Bacteremia due to Staphylococcus aureus Acute Vertebral osteomyelitis Acute Lumbar discitis Acute
[2017-01-13] MEDS: guaiFENesin 600 MG TAB.ER PO SCH (11:21)
[2017-01-13] MEDS: SENNOSIDES/DOCUSATE SODIUM TAB PO SCH ×2 (11:22→23:52)
[2017-01-13] MEDS: MONTELUKAST SODIUM 10 MG TAB PO SCH (11:22)
[2017-01-13] MEDS: POTASSIUM Cl (KCl) 100 ML IV SCH ×2 (11:32→13:48)
--- NOTE | 2017-01-13 12:12 | PCMIDPN ---
Assessment/Plan: Assessment/Plan: * Lumbar diskitis with concomitant MSSA bacteremia: MRI images with progressive destructive changes at L4 and increased spinal stenosis with epidural enhancement. Given progression with antibiotic therapy, plans for surgical debridement later today. Continue vancomycin given possibility of cholestatic hepatitis with cefazolin. * Abnormal liver function tests: Possible cholestatic hepatitis associated with cefazolin use. Overall improved although alkaline phosphatase remains elevated. If fails to improve, may need further input from GI. Repeat ultrasound without evidence of biliary obstruction. 01/13/17 12:09 01/13/17 12:11 Subjective: Patient scheduled for surgery later this p.m.. Back pain remains stable. Objective: Vital Signs Temp Pulse Resp BP Pulse Ox 36.8 C 72 18 113/58 L 90 L 01/13/17 07:28 01/13/17 07:28 01/13/17 07:28 01/13/17 07:28 01/13/17 07:28 Laboratory Results 01/12/17 05:27 01/13/17 05:35 01/12/17 01/13/17 01/14/17 05:59 05:59 05:59 Intake Total 450 300 Output Total 3 Balance 447 300 C-Reactive Protein 251.9 mg/L (<10.0) H 01/10/17 11:35 Vancomycin # 4 Laboratory Tests 01/11/17 20:00 Vancomycin Trough 10.2 Laboratory Tests 01/13/17 05:35 Total Bilirubin 0.6 AST 34 ALT 43 Alkaline Phosphatase 501 H - Physical Exam General Appearance: alert, no apparent distress EENT: pharynx normal, No scleral icterus, No conjunctival petechiae Cardiac/Chest: regular rate, rhythm, systolic murmur (2/6 left upper sternal border) Abdomen: non-tender, No distended Back: No spine tenderness - Line/s LUE PICC Lines: No drainage, No erythema ICD10 Worksheet Patient Problems: Problems Problem Status Onset Bacteremia due to Staphylococcus aureus Acute Lumbar discitis Acute Vertebral osteomyelitis Acute
[2017-01-13] MEDS ORDERED: BUPIVACAINE/EPI 0.25% 30 ML SDV ONE (12:47)
[2017-01-13] MEDS ORDERED: DEPO METHYLPREDNISOLONE 40 MG/ML SDV ONE (12:47)
[2017-01-13] MEDS ORDERED: THROMBIN (BOVINE) 20,000 UNIT VIAL TP ONE (12:47)
[2017-01-13] MEDS ORDERED: BACITRACIN 50,000 UNITS/10 ML SYR IRR ONE (12:48)
[2017-01-13 13:23] LABS: INR 0.97 (0.83-1.16); PROTIME(PATIENT) 12.8 SEC (12.0-15.0)
[2017-01-13] MEDS ORDERED: POTASSIUM Cl (KCl) 100 ML IV ONE (14:00)
[2017-01-13] MEDS ORDERED: HYDROmorphONE/DILAUDID 1 MG/ML SYR IVP PRN (17:00)
[2017-01-13] MEDS ORDERED: DIAZEPAM 10 MG/2 ML SYR IVP PRN (17:00)
[2017-01-13] MEDS ORDERED: METHOCARBAMOL 750 MG TAB PO PRN (17:00)
[2017-01-13] MEDS ORDERED: NALOXONE HCL 0.4 MG/ML INJ IVP PRN (17:00)
[2017-01-13] MEDS ORDERED: HYDROmorphONE/DILAUDID 6 MG/30 ML PCA IV PRN (17:00)
[2017-01-13] MEDS ORDERED: NS W/ 20 KCl/L 1,000 ML IV SCH (17:00)
[2017-01-13] MEDS ORDERED: TEMAZEPAM 15 MG CAP PO PRN (17:00)
[2017-01-13] MEDS ORDERED: DIAZEPAM 5 MG TAB PO PRN (17:00)
[2017-01-13] MEDS ORDERED: diphenhydrAMINE 25 MG CAP PO PRN ×2 (17:00)
[2017-01-13] MEDS ORDERED: MIDAZOLAM 2 MG/2 ML VIAL ONE (17:10)
[2017-01-13] MEDS ORDERED: fentaNYL 100 MCG/2 ML INJ ONE (17:23)
[2017-01-13] MEDS ORDERED: PROPOFOL 200 MG/20 ML VIAL ONE (17:24)
[2017-01-13] MEDS ORDERED: LIDOCAINE 2% 5 ML SDV ONE (17:25)
[2017-01-13] MEDS ORDERED: ONDANSETRON 4 MG/2 ML VIAL ONE (17:25)
[2017-01-13] MEDS ORDERED: HYDROCORTISONE 100 MG/2 ML VIAL ONE (17:32)
[2017-01-13] MEDS ORDERED: PHENYLEPHRINE HCL 100 MCG/ML SYR ONE (17:51)
[2017-01-13] MEDS ORDERED: epHEDrine SULFATE 10 MG/ML SYR ONE (18:45)
[2017-01-13] MEDS ORDERED: VANCOMYCIN 1 GM VIAL ONE (19:35)
[2017-01-13] MEDS ORDERED: PROPOFOL/EMULSION 500 MG/50 ML BOTTLE IV ONE (19:55)
[2017-01-13] MEDS ORDERED: KETAMINE 100 MG/10 ML SYR IVP ONE (19:55)
[2017-01-13] MEDS ORDERED: FAMOTIDINE 20 MG/NACL 50 ML IV SCH (21:00)
--- NOTE | 2017-01-13 21:53 | SOAPPROG ---
SOAP Progress Note Assessment/Plan: Post Op Visit: S: Awake and alert. NAD. Pt with expected lower back pain O: AFVSS/PERRLA/EOMI no droop CN 2-12 grossly intact +lt touch 5/5 BUE/BLE = CDI MICHAEL in place A/P: 71 yo female that is s/p TLIF at L4/5 with PSF L3-5 -orders in -call with any questions or concerns -take medications as directed -pt seen by Dr Bailey 01/13/17 21:52 Objective: Vital Signs Temp Pulse Resp BP Pulse Ox 36.8 C 76 18 120/59 L 91 L 01/13/17 15:23 01/13/17 15:23 01/13/17 15:23 01/13/17 15:23 01/13/17 15:23 Laboratory Results 01/12/17 05:27 01/13/17 05:35 01/12/17 01/13/17 01/14/17 05:59 05:59 05:59 Intake Total 450 300 Output Total 3 Balance 447 300 PT 12.8 SEC (12.0-15.0) 01/13/17 12:35 INR 0.97 (0.83-1.16) 01/13/17 12:35 ICD10 Worksheet Patient Problems: Problems Problem Status Onset Bacteremia due to Staphylococcus aureus Acute Lumbar discitis Acute Vertebral osteomyelitis Acute
[2017-01-13] MEDS ORDERED: SUCCINYLCHOLINE CHLORIDE*ANESTHESIA ONLY*200 MG/10 ML SYR IVP ONE (21:54)
[2017-01-13] MEDS ORDERED: DIAZEPAM 10 MG/2 ML SYR ONE (22:43)
[2017-01-13] MEDS: HYDROCODONE/APAP 10/325 TAB PO PRN (23:29)
[2017-01-14] MEDS: MONTELUKAST SODIUM 10 MG TAB PO SCH ×3 (00:18→20:51)
[2017-01-14] MEDS: guaiFENesin 600 MG TAB.ER PO SCH ×3 (00:18→20:50)
[2017-01-14] MEDS: HYDROCODONE/APAP 10/325 TAB PO PRN ×3 (02:32→13:01)
[2017-01-14] MEDS: LEVOTHYROXINE 125 MCG TAB PO SCH (05:55)
[2017-01-14 06:26] LABS: ADD DIFF? YES; ADD MORPH? NO; ADD SCAN? NO; ATYPICAL LYMPHOCYTE FLAG 10 (0-99); FRAGMENT RBC FLAG 0 (0-99); HEMOGLOBIN 10.6 g/dL (12.6-16.3); LEFT SHIFT FLG 40 (0-99); LIPEMIA HEMOLYSIS FLAG 80 (0-99); MEAN CELL HEMOGLOBIN CONCENTR. 32.1 g/dL (32.4-36.7); MEAN CELL VOLUME 93.5 fL (81.5-99.8); MEAN PLATELET VOLUME 9.3 fL (8.7-11.7); PLATELET CLUMPS FLAG 0 (0-99); PLATELET COUNT 353 10^3/uL (150-400); RED BLOOD CELL COUNT 3.53 10^6/uL (4.18-5.33); RED CELL DISTRIBUTION WIDTH 13.2 % (11.5-15.2)
[2017-01-14 07:17] LABS: ANION GAP 7 mEq/L (8-16); CALCIUM 8.3 mg/dL (8.5-10.4); CARBON DIOXIDE 31 mEq/l (22-31); CHLORIDE 102 mEq/L (97-110); CREATININE 0.5 mg/dL (0.6-1.0); GLOMERULAR FILTRATION RATE > 60; GLUCOSE 105 mg/dL (70-100); POTASSIUM 3.9 mEq/L (3.5-5.2); SODIUM 140 mEq/L (134-144)
[2017-01-14 07:22] LABS: HYPOCHROMIA 1+; PLATELET ESTIMATE ADEQUATE (ADEQ); POLYCHROMASIA 1+
--- NOTE | 2017-01-14 08:02 | GOP ---
[f rep st] OPERATIVE REPORT DATE OF OPERATION: 01/13/2017 SURGEON: Shantal Bailey MD RECLAMATION ENGINEER: Jaron Hernandez PA-C. PREOPERATIVE DIAGNOSIS: Lumbar diskitis at L4-5, severe spinal stenosis at L3-4. Severe infectious scoliosis on the left at L4-5 with compression of the left L4 nerve root. POSTOPERATIVE DIAGNOSIS: Lumbar diskitis at L4-5, severe spinal stenosis at L3-4. Severe infectiou s scoliosis on the left at L4-5 with compression of the left L4 nerve root. PROCEDURE PERFORMED: Posterolateral and intervertebral arthrodesis with removal and debridement of the L4-5 disk space for diskitis at L4-5 ([id number]), posterolateral arthrodesis only at L3-4 ([id number]), s yue incision bone graft harvest, lumbar laminectomy at L3-4 ([id number]), spinal stereotaxy, microscope. FINDINGS: ESTIMATED BLOOD LOSS: 300 cc. INDICATIONS: The patient is a 71-year-old who had spontaneous lumbar diskitis at L4-5 that was impr oving, and superimposed upon this, she had a terrible left principally lumbar radiculopathy that I t hought was due to spinal stenosis at L3-4, L4-5. She was responding to antibiotics and clearing the diskitis when she was admitted last week to a hospital in [facility] with worsening diskitis , worsening inflammatory markers, and an MRI that all of a sudden had appeared worse. She was trans ferred down to [facility] because the patient wanted me to be involved in her care, and she was admitted last week and underwent medical workup by both the infectious disease physician s as well as the internal medicine doctors. She continued to have terrible left leg pain that is un relenting. She could not walk without the assistance of a walker. She was developing some new righ t leg pain. She is not systemically doing poor from an infection standpoint, but again, the infecti on in her back appeared to be not responding to antibiotics. Both Dr. Erick Serrano and I thought that she should be debrided. Her MRI had worsened since prior MRIs at L4-5 and, indeed, the diskitis was now really not controlled with antibiotics alone. In addition, she was developing a degenerative o r an infectious tilt of the L4 on L5 vertebral body and compression of the L4 nerve root on the left at L4-5, where she was most symptomatic, and I felt that she likely should undergo stabilization at this level. The diskitis had completely destroyed the disk as well as very much of the L4 vertebra l body, and I suggested that she consider fusion. I thought we would make this decision in the oper ating room, but she knew that I was leaning that way. We had originally planned for decompression a lone if the diskitis had cleared, but unfortunately, this was not the case. The risk of infected enriquez rdware, loosening of her hardware, particularly in view of her chronic steroid use, and her elevated BMI was discussed. She knew there was a chance this could fail to produce relief and could lead to additional spine surgery. She had a terrible degenerative disk at L2-3 that I did not think requir ed any attention. There was absolutely no spinal stenosis at that level. She understood these risk s. She did want to proceed. DESCRIPTION OF PROCEDURE: Patient was taken to the operating room, placed in supine position. Gene ral anesthesia was begun. She was flipped prone onto the Miko table. Care was taken to pad all points of contact. Her back was sterilely prepped and draped in the usual fashion. We made about a n 8 cm incision above the L3-4, L4-5 interspaces. The subcutaneous tissues were dissected using Bov ie cautery down to the fascia and a subperiosteal dissection was made down the L3 lamina, the L4 henning soto, and the L5 lamina. Self-retaining retractor was placed. A localizing x-ray was taken. There was really incredible mobility of L4 relative to L5 as if she had a pars defect. You could simply g rab the L4 spinous process and wobble the entire thing as if it was not attached to bone. There was no evidence of an L4 pars defect, but the L4 spinous process moved in such a manner. L3 seemed more normal, and L5 is normal, but there was really remarkable mobility of L4 and L5. The facet joints bilaterally also were diminutive and there was excessive fluid coming out of the left more than the right facet joint. It was possibly slightly cloudy, but it was not pus. It was just boggy serous f luid coming out of the L4-5 facet joint. We tested Stealth Reference Frame to the spinous process o f L4 and performed an O-arm spin and, indeed, on the O-arm spin, the L4 vertebral body was nearly co mpletely destroyed by the infection. The L5 vertebral body had good bony substance. It was at this time I decided to do a fusion, and we removed the frame and then prepped the posterolateral areas o f the bone for acceptance of pedicle screws. We reattached the frame, performed another O-arm spin, and using frameless Stealth stereotaxy, we placed pedicle screws bilaterally at L3, L4, and L5. I was actually surprised, but there was very good bony purchase of the pedicle screws. There were num erous areas of cortical islands within our bone and there was very good purchase of the pedicle scre ws at L3, L4, and L5 and, in fact, the L3 screws were among the ones least satisfying. They all sti mulated acceptable levels. They were in excellent position. On the third O-arm spin that was perfo rmed, we placed rods down over the screws and distracted slightly on the left at L4-5, but really di d not try to get much correction. As we tightened the screws, there was some distraction and restor ation of a proper lumbar lordosis. We then performed an L4 laminectomy bilaterally, swept the theca l sac medially, and entered the L4-5 disk where we removed the disk. It was completely destroyed, a s well as much of the L4 vertebral body. We then undertook curetting, and curetted the disk out and sent this for tissue culture. We had not used any antibiotics within the wound or preop antibiotic s at this point in the procedure. After completely culturing the disk for both fungal as well as an aerobic and aerobic cultures and AFB, we then irrigated the disk space with large amounts of antibio tic saline. We then took vancomycin powder in slurry and put it in the disk space itself. We then turned our attention to L3-4. We now added antibiotics to our irrigating fluids and we performed a bilateral L3 laminectomy. There was really very severe stenosis both at L3-4, L4-5, and both of the se were cleaned out bilaterally. We performed a great decompression. We preserved the right facet at L4-5. We preserved both facet joints at L3-4 for a posterolateral arthrodesis. We did not enter the L3-4 disk or investigate the disk any further because we did not want to contaminate this disk with bacteria. We irrigated with large amounts of antibiotic saline, placed bone autograft and BMP p osterolaterally bilaterally. We also placed a small amount of BMP in the L4-5 interspace. We then placed a subfascial drain and closed the incision in multiple layers using Vicryl sutures. A runnin g PDS was placed in the skin itself. The patient was reversed from anesthesia, extubated, and trans ferred to recovery room in stable condition. COMPLICATIONS: None. /[id number]/MODL
[2017-01-14] MEDS: VANCOMYCIN 1.25 GM in D5W 250 ML IV SCH ×2 (08:29→22:09)
[2017-01-14] MEDS: GABAPENTIN 300 MG CAP PO SCH ×3 (08:33→20:50)
[2017-01-14] MEDS: HYDROCORTISONE 10 MG TAB PO SCH ×2 (08:35→15:20)
[2017-01-14] MEDS: FAMOTIDINE 20 MG TAB PO SCH ×3 (08:36→20:49)
[2017-01-14] MEDS: SENNOSIDES/DOCUSATE SODIUM TAB PO SCH ×2 (08:38→20:58)
[2017-01-14] MEDS ORDERED: HYDROCORTISONE 100 MG/2 ML VIAL IVP ONE (09:00)
--- NOTE | 2017-01-14 09:45 | NEUSURGPN ---
Assessment/Plan: A/P: 71 yo female that is s/p TLIF at L4/5 with PSF L3-5 - POD#1 -Brace ordered - please have record changer assembler come and fit brace, to be worn when out of bed -MICHAEL drain - continue drain -Pain management, cont current regimen -PT/OT -TEDs, SCDs, lovenox to start 18 -Post op xrays ordered -pt d/w Dr Bailey Subjective: Pt resting in bed, pain well managed Objective: AAOx3 NAD VSS MAEx4 Motor 5/5 BLE Incision dressed JPx1 Urinary Catheter in Place: No Catheter Insertion Date: 01/13/17 - Physician Discussed Patient with : Leo Neurosurgery Physical Exam - Vitals, I&O, Labs I and O 01/13/17 01/14/17 01/15/17 05:59 05:59 05:59 Intake Total 300 2750 Output Total 930 20 Balance 300 1820 -20 Intake: Oral (ml) 300 100 IV Intake (ml) 2650 Output: Urine (ml) 700 Catheter 700 Estimated Blood Loss (ml) 200 Wound Drainage (ml) 30 20 Left Back Miko Larson 30 20 Other: Intake Quantity Yes Sufficient Number of Voids Toilet 2 Number of Stools Toilet 1 Microbiology 01/13/17 20:11 Gram Stain - Final Vertebral Disc 01/13/17 20:11 Gram Stain - Final Vertebral Disc 01/13/17 20:11 Gram Stain - Final Vertebral Disc 01/13/17 20:11 Gram Stain - Final Vertebral Disc Vital Signs Temp Pulse Resp BP Pulse Ox 36.4 C 74 16 94/55 L 93 01/14/17 08:57 01/14/17 08:57 01/14/17 08:57 01/14/17 08:57 01/14/17 08:57 Laboratory Results 01/14/17 06:15 01/14/17 06:15 ICD10 Worksheet Patient Problems: Problems Problem Status Onset Bacteremia due to Staphylococcus aureus Acute Lumbar discitis Acute Vertebral osteomyelitis Acute
[2017-01-14] MEDS: BUDESONIDE 0.5 MG PO SCH (10:49)
--- NOTE | 2017-01-14 16:26 | HOSPPROG ---
Hospitalist Progress Note Assessment/Plan: 71-year-old transferred from [facility] where she was being treated for lumbar diskitis with IV cefazolin. she was transferred here after progressive disease was noted on follow-up imaging, she also developed elevated LFTs thought secondary to the cefazolin. # lumbar diskitis at L4 with MSSA bacteremia, she has already undergone a full course of 8 weeks of IV cefazolin. * Vanco 1 g IV q.12 hours * appreciate ID follow-up * status post surgery and patient has much better pain control today specially for her left radiculopathy * postop care per Neurosurgery * physical therapy as tolerated # elevated LFTs, enzymes improved, alk-phos still elevated but improving. No abdominal pain. Likely secondary to cephazolin. Ultrasound shows no stone but did have some polyps. # Respiratory symptoms, unremarkable chest x-ray with small bilateral effusions. exam is normal today, could consider nebulizers if she becomes hypoxic. # collagenous colitis, on chronic steroid therapy with secondary adrenal insufficiency * patient requests recommendations for new GI doctor as outpatient. * Can give her contact information for Dr. Colindres from [facility] or Dr. Ding in [place] # idiopathic lower extremity edema Subjective: left leg pain is much improved postop. Breathing is stable, no chest pain no nausea, ate some Finnish food today Objective: Vital Signs Temp Pulse Resp BP Pulse Ox 36.5 C 78 16 113/56 L 96 01/14/17 16:00 01/14/17 16:00 01/14/17 16:00 01/14/17 16:00 01/14/17 16:00 Microbiology 01/13/17 20:11 Gram Stain - Final Vertebral Disc 01/13/17 20:11 Gram Stain - Final Vertebral Disc 01/13/17 20:11 Gram Stain - Final Vertebral Disc 01/13/17 20:11 Gram Stain - Final Vertebral Disc Laboratory Results 01/14/17 06:15 01/14/17 06:15 01/13/17 01/14/17 01/15/17 05:59 05:59 05:59 Intake Total 300 2750 300 Output Total 930 60 Balance 300 1820 240 PT 12.8 SEC (12.0-15.0) 01/13/17 12:35 INR 0.97 (0.83-1.16) 01/13/17 12:35 - Physical Exam Constitutional: obese, uncomfortable Ears, Nose, Mouth, Throat: moist mucous membranes Cardiovascular: regular rate and rhythym, edema Respiratory: no respiratory distress Gastrointestinal: normoactive bowel sounds Neurologic: AAOx3 Psychiatric: interacting appropriately ICD10 Worksheet Patient Problems: Problems Problem Status Onset Bacteremia due to Staphylococcus aureus Acute Vertebral osteomyelitis Acute Lumbar discitis Acute
--- NOTE | 2017-01-14 17:45 | PCMIDPN ---
Assessment/Plan: Assessment/Plan: * Lumbar diskitis with concomitant MSSA bacteremia status post debridement and fusion: Operative findings noted with significant destruction of L4 and L4-5 disc. Await operative cultures. Continue vancomycin. Given need for fusion, will require suppressive antibiotic therapy after repeat course of IV antibiotics completed. * Abnormal liver function tests: Possible cholestatic hepatitis associated with cefazolin use. Repeat values in a.m.. 01/14/17 17:27 01/14/17 17:28 Subjective: Patient status post surgical debridement and fusion. Operative findings showed significant destructive change of L4 and the disc at L4-5. Patient's left leg pain significantly improved postoperatively. Objective: Vital Signs Temp Pulse Resp BP Pulse Ox 36.5 C 78 16 113/56 L 96 01/14/17 16:00 01/14/17 16:00 01/14/17 16:00 01/14/17 16:00 01/14/17 16:00 Microbiology 01/13/17 20:11 Gram Stain - Final Vertebral Disc 01/13/17 20:11 Gram Stain - Final Vertebral Disc 01/13/17 20:11 Gram Stain - Final Vertebral Disc 01/13/17 20:11 Gram Stain - Final Vertebral Disc Laboratory Results 01/14/17 06:15 01/14/17 06:15 01/13/17 01/14/17 01/15/17 05:59 05:59 05:59 Intake Total 300 2750 300 Output Total 930 60 Balance 300 1820 240 C-Reactive Protein 251.9 mg/L (<10.0) H 01/10/17 11:35 Vancomycin # 5 Multiple Gram stains with no organisms and cultures currently pending - Physical Exam General Appearance: alert, no apparent distress EENT: No conjunctival petechiae Cardiac/Chest: regular rate, rhythm, systolic murmur (2/6 left upper sternal border) Abdomen: non-tender, No distended Back: other (Dressed postoperatively) - Line/s LUE PICC Lines: No drainage, No erythema ICD10 Worksheet Patient Problems: Problems Problem Status Onset Bacteremia due to Staphylococcus aureus Acute Lumbar discitis Acute Vertebral osteomyelitis Acute
[2017-01-14] MEDS: oxyCODONE IR 5 MG TAB PO PRN (20:52)
[2017-01-14] MEDS ORDERED: ALTEPLASE 2 MG VIAL IVP PRN (21:00)
[2017-01-14] MEDS: VANCOMYCIN HCL/NORMAL SALINE 250 ML IV SCH (22:54)
[2017-01-15 05:15] LABS: ALANINE AMINOTRANSFERASE 35 IU/L (9-52); ALKALINE PHOSPHATASE 307 IU/L (38-126); ANION GAP 5 mEq/L (8-16); ASPARTATE AMINOTRANSFERASE 24 IU/L (14-46); BILIRUBIN,TOTAL 0.4 mg/dL (0.1-1.4); CALCIUM 8.3 mg/dL (8.5-10.4); CARBON DIOXIDE 33 mEq/l (22-31); CHLORIDE 102 mEq/L (97-110); CREATININE 0.5 mg/dL (0.6-1.0); GLOMERULAR FILTRATION RATE > 60; GLUCOSE 87 mg/dL (70-100); POTASSIUM 3.5 mEq/L (3.5-5.2); SODIUM 140 mEq/L (134-144); TOTAL PROTEIN 4.1 g/dL (6.3-8.2)
[2017-01-15] MEDS: oxyCODONE IR 5 MG TAB PO PRN ×3 (05:27→21:48)
[2017-01-15] MEDS: LEVOTHYROXINE 125 MCG TAB PO SCH (05:27)
--- NOTE | 2017-01-15 07:23 | NEUSURGPN ---
Date of Surgery: 01/13/17 Post Op Day: 2 Assessment/Plan: Assessment: 71 yo female that is s/p TLIF at L4/5 with PSF L3-5 - POD#2 Plan: -Hangar fit brace, to be worn when out of bed -MICHAEL drain - continue drain for a few more days -Pain management, cont current regimen -pt states legs feel good and happy with this. Back still hurts and she expects this -PT/OT-CPM -TEDs, SCDs, Lovenox to start 01/16 -Post op xrays look good -pt d/w Dr Bailey -call with any questions or concerns Subjective: Awake and alert. NAD. Eating/drinking and voiding. No f/c/n/v/d. No enriquez/neck/ chest/abd or gu complaints. Objective: AAO x 3, PERRLA/EOMI no droop CN 2-12 grossly intact +lt touch 5 BUE/BLE = CDI MICHAEL in place and working Neuro Check Frequency: per routine Urinary Catheter in Place: No Catheter Insertion Date: 01/13/17 - Physician Discussed Patient with Dr.: Leo Patient Seen by : Leo Neurosurgery Physical Exam - Vitals, I&O, Labs I and O 01/14/17 01/15/17 01/16/17 05:59 05:59 05:59 Intake Total 2750 1550 Output Total 930 490 Balance 1820 1060 Intake: Oral (ml) 100 1200 IV Intake (ml) 2650 100 IV Infused (ml) 250 Vancomycin HCl/Normal 250 Saline 250 ml @ 250 mls/ hr IV Q12H [facility] Rx#: [id number] Output: Urine (ml) 700 400 Catheter 700 400 Estimated Blood Loss (ml) 200 Wound Drainage (ml) 30 60 Left Back Miko Larson 30 60 Wound Drainage (ml) 30 Back 30 Other: Intake Quantity Yes Sufficient Number of Voids Catheter 1 Toilet 1 Microbiology 01/13/17 20:11 Gram Stain - Final Vertebral Disc 01/13/17 20:11 Gram Stain - Final Vertebral Disc 01/13/17 20:11 Gram Stain - Final Vertebral Disc 01/13/17 20:11 Gram Stain - Final Vertebral Disc Vital Signs Temp Pulse Resp BP Pulse Ox 37.0 C 68 16 91/46 L 4 L 01/15/17 04:00 01/15/17 04:00 01/15/17 04:00 01/15/17 04:00 01/15/17 04:00 Laboratory Results 01/14/17 06:15 01/15/17 04:50 ICD10 Worksheet Patient Problems: Problems Problem Status Onset Bacteremia due to Staphylococcus aureus Acute Lumbar discitis Acute Vertebral osteomyelitis Acute
[2017-01-15] MEDS: MONTELUKAST SODIUM 10 MG TAB PO SCH ×2 (09:41→21:48)
[2017-01-15] MEDS: FAMOTIDINE 20 MG TAB PO SCH ×3 (09:41→21:48)
[2017-01-15] MEDS: GABAPENTIN 300 MG CAP PO SCH ×3 (09:42→21:48)
[2017-01-15] MEDS: HYDROCORTISONE 10 MG TAB PO SCH ×2 (09:46→14:07)
[2017-01-15] MEDS: BUDESONIDE 0.5 MG PO SCH (09:47)
[2017-01-15] MEDS: guaiFENesin 600 MG TAB.ER PO SCH (09:47)
[2017-01-15] MEDS: VANCOMYCIN HCL/NORMAL SALINE 250 ML IV SCH ×2 (10:14→21:49)
--- NOTE | 2017-01-15 10:33 | PCMIDPN ---
Assessment/Plan: #MSSA bacteremia and lumbar diskitis/OM with focus at L4, s/p debridement and spine stabilized with hardware. clinically doing well. Surgical cultures remain negative 01/13/2017. WBC slightly elevated yesterday, not unexpected after surgical intervention. --vancomycin dose adjusted down last night for elevated trough, plan 8 weeks stop date 03/10/17, creatinine 0.5 today --will plan oral suppressive therapy after completes IV # cholestatic hepatitis: LFTs significantly improved. Thought secondary to cefazolin Medications, antibiotic # 3 Vancomycin 1 g IV Q 12 Subjective: Patient is back pain resolved "instantly" after surgery No diarrhea, no itching, no rash Ambulating regularly Objective: Vital Signs Temp Pulse Resp BP Pulse Ox 36.9 C 70 16 97/52 L 90 L 01/15/17 08:00 01/15/17 08:00 01/15/17 08:00 01/15/17 08:00 01/15/17 08:00 Microbiology 01/13/17 20:11 Gram Stain - Final Vertebral Disc 01/13/17 20:11 Gram Stain - Final Vertebral Disc 01/13/17 20:11 Gram Stain - Final Vertebral Disc 01/13/17 20:11 Gram Stain - Final Vertebral Disc Laboratory Results 01/14/17 06:15 01/15/17 04:50 01/14/17 01/15/17 01/16/17 05:59 05:59 05:59 Intake Total 2750 1550 Output Total 930 490 200 Balance 1820 1060 -200 C-Reactive Protein 251.9 mg/L (<10.0) H 01/10/17 11:35 General: Pleasant nontoxic woman no acute distress HEENT: Moist mucous membranes Cardiovascular RRR, 2/6 systolic murmur Chest: Breathing easy, decreased breath sounds in the bases Left upper extremity PICC C/D/I Back incision: Dressing in place, MICHAEL drain with serosanguineous fluid in bulb Ambulating with walker ICD10 Worksheet Patient Problems: Problems Problem Status Onset Bacteremia due to Staphylococcus aureus Acute Lumbar discitis Acute Vertebral osteomyelitis Acute
[2017-01-15] MEDS: SENNOSIDES/DOCUSATE SODIUM TAB PO SCH ×2 (12:48→21:49)
--- NOTE | 2017-01-15 13:50 | HOSPPROG ---
Hospitalist Progress Note Assessment/Plan: 71-year-old transferred from [facility] where she was being treated for lumbar diskitis with IV cefazolin. she was transferred here after progressive disease was noted on follow-up imaging, she also developed elevated LFTs thought secondary to the cefazolin. # Acute lumbar diskitis -at L4 with MSSA bacteremia, she has already undergone a full course of 8 weeks of IV cefazolin. WBC 11 this am - cont Vanco 1 g IV q.12 hours - cont prn pain medications - postop care per Neurosurgery - physical therapy as tolerated # elevated LFTs, enzymes improved, alk-phos still elevated but improving. No abdominal pain. Likely secondary to cephazolin. Ultrasound shows no stone but did have some polyps. # Respiratory symptoms- resolving chest x-ray (personally reviewed and interpreted) with small bilateral effusions. exam is clear, could consider nebulizers if she becomes hypoxic. oxygen saturations 94% on RA # collagenous colitis- no active sx # chronic steroid therapy with secondary adrenal insufficiency - cont chronic meds # idiopathic lower extremity edema- monitor # proph - Lovenox # diet -regular # dipo - working on placement - [place] [facility] would be excellent I discussed the case with CM - working on rehab placement- cont current IV abx Subjective: pain markedly improved since debridement Objective: Vital Signs Temp Pulse Resp BP Pulse Ox 36.4 C 62 16 98/49 L 94 01/15/17 11:38 01/15/17 11:38 01/15/17 11:38 01/15/17 11:38 01/15/17 11:38 Microbiology 01/13/17 20:11 Gram Stain - Final Vertebral Disc 01/13/17 20:11 Gram Stain - Final Vertebral Disc 01/13/17 20:11 Gram Stain - Final Vertebral Disc 01/13/17 20:11 Gram Stain - Final Vertebral Disc Laboratory Results 01/14/17 06:15 01/15/17 04:50 01/14/17 01/15/17 01/16/17 05:59 05:59 05:59 Intake Total 2750 1550 Output Total 930 490 200 Balance 1820 1060 -200 PT 12.8 SEC (12.0-15.0) 01/13/17 12:35 INR 0.97 (0.83-1.16) 01/13/17 12:35 - Physical Exam Constitutional: appears nourished Eyes: anicteric sclera Ears, Nose, Mouth, Throat: moist mucous membranes Cardiovascular: regular rate and rhythym Respiratory: no respiratory distress, no rales or rhonchi Gastrointestinal: normoactive bowel sounds, soft, non-tender abdomen Genitourinary: no bladder fullness Skin: warm, normal color Musculoskeletal: No asymmetric calves Neurologic: AAOx3 Psychiatric: interacting appropriately Lymph, Heme, Immunologic: no cervical LAD ICD10 Worksheet Patient Problems: Problems Problem Status Onset Bacteremia due to Staphylococcus aureus Acute Lumbar discitis Acute Vertebral osteomyelitis Acute
[2017-01-15] MEDS: guaiFENesin 600 MG TAB.ER PO PRN (16:32)
[2017-01-15] MEDS: IPRATROPIUM/ALBUTEROL 3 ML DEYVIAL IH PRN (18:24)
[2017-01-16] MEDS: LEVOTHYROXINE 125 MCG TAB PO SCH (04:41)
[2017-01-16 05:08] LABS: HEMATOCRIT 29.5 % (38.0-47.0); HEMOGLOBIN 9.3 g/dL (12.6-16.3); MEAN CELL HEMOGLOBIN 30.5 pg (27.9-34.1); MEAN CELL HEMOGLOBIN CONCENTR. 31.5 g/dL (32.4-36.7); MEAN CELL VOLUME 96.7 fL (81.5-99.8); RED BLOOD CELL COUNT 3.05 10^6/uL (4.18-5.33); RED CELL DISTRIBUTION WIDTH 13.7 % (11.5-15.2)
[2017-01-16] MEDS: FAMOTIDINE 20 MG TAB PO SCH ×3 (08:07→20:18)
[2017-01-16] MEDS: SENNOSIDES/DOCUSATE SODIUM TAB PO SCH ×2 (08:09→20:14)
[2017-01-16] MEDS: oxyCODONE IR 5 MG TAB PO PRN ×2 (08:11→14:35)
[2017-01-16] MEDS: ENOXAPARIN 40 MG/0.4 ML SYR SC SCH (08:12)
[2017-01-16] MEDS: BUDESONIDE 0.5 MG PO SCH (08:13)
[2017-01-16] MEDS: GABAPENTIN 300 MG CAP PO SCH ×3 (08:15→20:14)
[2017-01-16] MEDS: HYDROCORTISONE 10 MG TAB PO SCH ×2 (08:16→14:24)
[2017-01-16] MEDS: MONTELUKAST SODIUM 10 MG TAB PO SCH ×2 (08:16→20:13)
[2017-01-16] MEDS: IPRATROPIUM/ALBUTEROL 3 ML DEYVIAL IH PRN ×2 (08:36→14:54)
--- NOTE | 2017-01-16 09:46 | NEUSURGPN ---
Assessment/Plan: Assessment: 71 yo female that is s/p TLIF at L4/5 with PSF L3-5 - POD#3 Plan: -Brace to be worn when out of bed -MICHAEL drain - output 30 yesterday, will keep today -Pain management, cont current regimen -pt states legs feel good and happy with this. Back still hurts and she expects this -PT/OT-CPM -TEDs, SCDs, Lovenox to start today -Post op xrays look good -pt d/w Dr Bailey -Dispo planning- Patient would like to go to [facility] if possible, will leave up to case management to work on this -call with any questions or concerns Subjective: Patient is doing well, her legs feel great and she has expected back pain. Denies fever, chills. Objective: AAO x 3, PERRLA/EOMI CN 2-12 grossly intact +lt touch 5/5 BUE/BLE = CDI MICHAEL in place and working Catheter Insertion Date: 01/13/17 - Physician Discussed Patient with : Leo Patient Seen by : Leo Neurosurgery Physical Exam - Vitals, I&O, Labs I and O 01/15/17 01/16/17 01/17/17 05:59 05:59 05:59 Intake Total 1550 600 Output Total 490 2560 Balance 1060 -1960 Intake: Oral (ml) 1200 600 IV Intake (ml) 100 IV Infused (ml) 250 Vancomycin HCl/Normal 250 Saline 250 ml @ 250 mls/ hr IV Q12H [facility] Rx#: [id number] Output: Urine (ml) 400 2500 Catheter 400 400 Toilet 2100 Wound Drainage (ml) 60 30 Left Back Miko Larson 60 30 Wound Drainage (ml) 30 30 Back 30 30 Other: Intake Quantity Yes Yes Sufficient Number of Voids Catheter 1 1 Toilet 1 1 1 Number of Stools Toilet 1 1 Microbiology 01/13/17 20:11 Gram Stain - Final Vertebral Disc 01/13/17 20:11 Gram Stain - Final Vertebral Disc 01/13/17 20:11 Gram Stain - Final Vertebral Disc 01/13/17 20:11 Gram Stain - Final Vertebral Disc Vital Signs Temp Pulse Resp BP Pulse Ox 37.0 C 75 16 111/56 L 100 01/16/17 07:33 01/16/17 08:36 01/16/17 08:36 01/16/17 07:33 01/16/17 08:36 Laboratory Results 01/16/17 04:50 01/15/17 04:50 ICD10 Worksheet Patient Problems: Problems Problem Status Onset Bacteremia due to Staphylococcus aureus Acute Lumbar discitis Acute Vertebral osteomyelitis Acute
[2017-01-16] MEDS: VANCOMYCIN HCL/NORMAL SALINE 250 ML IV SCH (11:47)
--- NOTE | 2017-01-16 12:58 | HOSPPROG ---
Hospitalist Progress Note Assessment/Plan: 71-year-old transferred from [facility] where she was being treated for lumbar diskitis with IV cefazolin. she was transferred here after progressive disease was noted on follow-up imaging, she also developed elevated LFTs thought secondary to the cefazolin. # Acute lumbar diskitis -at L4 with MSSA bacteremia, she has already undergone a full course of 8 weeks of IV cefazolin. WBC 7 this am - lumbar xray (personally reviewed and interpreted) L3->5 fusion with L4/5 Diskitis - cont Vanco 1 g IV q.12 hours - cont prn pain medications - postop care per Neurosurgery - physical therapy as tolerated # elevated LFTs, enzymes improved, alk-phos still elevated but improving. No abdominal pain. Likely secondary to previous cephazolin-Ultrasound shows no stone but did have some polyps. # Respiratory symptoms- pt with intermittent SOB chest x-ray - with small bilateral effusions. exam is clear, continue nebs for now- they make her more comfortable oxygen saturations 93% on 2L - check CXR tomorrow # collagenous colitis- no active sx # chronic steroid therapy with secondary adrenal insufficiency - cont chronic meds # idiopathic lower extremity edema- monitor # proph - Lovenox # diet -regular # dispo - working on placement - [facility] - [facility] I discussed the case with CM - working on rehab placement- at centers besides [facility] Subjective: still with pain but much less Objective: Vital Signs Temp Pulse Resp BP Pulse Ox 37.0 C 75 16 111/56 L 100 01/16/17 07:33 01/16/17 08:36 01/16/17 08:36 01/16/17 07:33 01/16/17 08:36 Microbiology 01/13/17 20:11 Gram Stain - Final Vertebral Disc 01/13/17 20:11 Gram Stain - Final Vertebral Disc 01/13/17 20:11 Gram Stain - Final Vertebral Disc 01/13/17 20:11 Gram Stain - Final Vertebral Disc Laboratory Results 01/16/17 04:50 01/15/17 04:50 01/15/17 01/16/17 01/17/17 05:59 05:59 05:59 Intake Total 1550 600 Output Total 490 2560 Balance 1060 -1960 PT 12.8 SEC (12.0-15.0) 01/13/17 12:35 INR 0.97 (0.83-1.16) 01/13/17 12:35 - Physical Exam Constitutional: chronically ill appearing Eyes: anicteric sclera Ears, Nose, Mouth, Throat: moist mucous membranes Cardiovascular: regular rate and rhythym Respiratory: no respiratory distress, No expiratory wheeze, No inspiratory crackles Gastrointestinal: normoactive bowel sounds Genitourinary: no bladder fullness Skin: warm, normal color Musculoskeletal: No asymmetric calves Neurologic: AAOx3 Psychiatric: interacting appropriately Lymph, Heme, Immunologic: no cervical LAD ICD10 Worksheet Patient Problems: Problems Problem Status Onset Bacteremia due to Staphylococcus aureus Acute Lumbar discitis Acute Vertebral osteomyelitis Acute
[2017-01-16] MEDS: guaiFENesin 600 MG TAB.ER PO PRN (14:24)
--- NOTE | 2017-01-16 16:24 | PCMIDPN ---
Assessment/Plan: Assessment/Plan: * Lumbar diskitis with concomitant MSSA bacteremia status post debridement and fusion: Operative findings noted with significant destruction of L4 and L4-5 disc. Operative cultures no growth to date. Continue vancomycin. Will adjust to daily dosing based on trough level. Given need for fusion, will require suppressive antibiotic therapy after repeat course of IV antibiotics completed. * Abnormal liver function tests: Improved. May be related to cholestatic hepatitis associated with cefazolin use. 01/16/17 16:22 Subjective: Patient feels clinically improved. Sitting up eating breakfast. Discharge planning starting. Objective: Vital Signs Temp Pulse Resp BP Pulse Ox 37.0 C 75 16 100/58 L 90 L 01/16/17 15:42 01/16/17 15:42 01/16/17 15:42 01/16/17 15:42 01/16/17 15:42 Microbiology 01/13/17 20:11 Gram Stain - Final Vertebral Disc 01/13/17 20:11 Gram Stain - Final Vertebral Disc 01/13/17 20:11 Gram Stain - Final Vertebral Disc 01/13/17 20:11 Gram Stain - Final Vertebral Disc Laboratory Results 01/16/17 04:50 01/15/17 04:50 01/15/17 01/16/17 01/17/17 05:59 05:59 05:59 Intake Total 1550 600 Output Total 490 2560 600 Balance 1060 -1960 -600 C-Reactive Protein 251.9 mg/L (<10.0) H 01/10/17 11:35 Vancomycin # 7 Operative cultures no growth to date Laboratory Tests 01/16/17 10:15 Vancomycin Trough 19.3 - Physical Exam General Appearance: alert, no apparent distress EENT: No thrush, No conjunctival petechiae Respiratory: lungs clear, No respiratory distress Cardiac/Chest: regular rate, rhythm, systolic murmur (2/6 left upper sternal border) - Line/s LUE PICC Lines: No drainage, No erythema ICD10 Worksheet Patient Problems: Problems Problem Status Onset Bacteremia due to Staphylococcus aureus Acute Lumbar discitis Acute Vertebral osteomyelitis Acute
--- NOTE | 2017-01-16 16:30 | PDIAF ---
- Diagnosis Diagnosis: MSSA bacteremia/lumbar diskitis/vertebral osteomyelitis Code Status: Full Code - Medication Management Discharge Medications: Medications to Continue on Transfer Budesonide 0.5mg Cap 1 cap PO DAILY 01/08/17 [Last Taken Unknown] Ertapenem [Invanz] 1 gm IV Q24H 01/08/17 [Last Taken Unknown] Famotidine [Pepcid 20 MG (*)] 20 mg PO TID 01/08/17 [Last Taken Unknown] Gabapentin [Neurontin 300 MG (*)] 900 mg PO TID 01/08/17 [Last Taken Unknown] Hydrocortisone [Cortef 10 mg (*)] 10 mg PO BID@09,14 01/08/17 [Last Taken Unknown] Levothyroxine [Synthroid 125 mcg (*)] 125 mcg PO DAILY06 01/08/17 [Last Taken Unknown] Montelukast Sodium [Singulair 10 mg (*)] 5 mg PO BID 01/08/17 [Last Taken Unknown] oxyCODONE HCL [Oxycodone HCl ER] 20 mg PO BID 01/08/17 [Last Taken Unknown] oxyCODONE IR [Oxycodone Ir (*)] 5 mg PO Q4H PRN 01/08/17 [Last Taken Unknown] Speech Coach Antibiotics: Vancomycin 1.5 g IV Q 24 hours Speech Coach Antibiotic Stop Date: 03/10/17 Discharge Medications: Refer to the Discharge Home Medication list for PRN reason. PICC Care - Routine: Yes - Orders Services needed: Home [facility] Care Face to Face: I certify that this patient was under my care and that I had the required [id number] encounter meeting the encounter requirements on the discharge day. My findings support the fact that the patient is homebound as defined in CMS Chapter 7 Medicare Benefits Manual 30.1.1, The condition of the patient is such that there exists a normal inability to leave home and consequently, leaving home would require a considerable and taxing effort. - Labs/Radiology CBC Date: 01/20/17 (Weekly Q Friday) CMP Date: 01/20/17 (Weekly Q Friday) Creatinine Date: 01/23/17 (Weekly Q ) CRP Date: 01/20/17 (Weekly Q Friday) Vanco Trough Date and Time: Weekly Q Friday and - Follow Up Care Current Providers and Referrals: KANIKA MAY MD [Other]
[2017-01-17] MEDS: oxyCODONE IR 5 MG TAB PO PRN (04:36)
[2017-01-17] MEDS: LEVOTHYROXINE 125 MCG TAB PO SCH (04:56)
[2017-01-17 05:18] LABS: ALANINE AMINOTRANSFERASE 33 IU/L (9-52); ALBUMIN 2.1 g/dL (3.5-5.0); ALKALINE PHOSPHATASE 271 IU/L (38-126); ANION GAP 6 mEq/L (8-16); ASPARTATE AMINOTRANSFERASE 30 IU/L (14-46); BILIRUBIN,TOTAL 0.5 mg/dL (0.1-1.4); BILIRUBIN-CONJUGATED 0.4 mg/dL (0.0-0.5); BILIRUBIN-UNCONJUGATED 0.1 mg/dL (0.0-1.1); CALCIUM 8.1 mg/dL (8.5-10.4); CARBON DIOXIDE 31 mEq/l (22-31); CHLORIDE 103 mEq/L (97-110); CREATININE 0.6 mg/dL (0.6-1.0); GLOMERULAR FILTRATION RATE > 60; GLUCOSE 77 mg/dL (70-100); POTASSIUM 3.5 mEq/L (3.5-5.2); SODIUM 140 mEq/L (134-144); TOTAL PROTEIN 3.9 g/dL (6.3-8.2)
--- NOTE | 2017-01-17 07:49 | NEUSURGPN ---
Date of Surgery: 01/13/17 Post Op Day: 4 Assessment/Plan: Assessment: 71 yo female that is s/p TLIF at L4/5 with PSF L3-5 - POD#4 Plan: -Brace to be worn when out of bed -MICHAEL drain to be pulled this am -Pain management, cont current regimen -pt states legs feel good and happy with this. Back still hurts and she expects this as normal after surgery -PT/OT-CPM -TEDs, SCDs, Lovenox to start today -Post op xrays look good -pt seen with Dr Bailey -Dispo planning- Patient would like to go to [facility] -case management on board -ok to dc from per IM -call with any questions or concerns Subjective: Awake and alert. NAD. Eating/drinking and voiding. No f/c/n/v/d. No enriquez/neck/ chest/abd or gu complaints. Objective: AAO x 3, PERRLA/EOMI CN 2-12 grossly intact +lt touch 5/5 BUE/BLE = CDI MICHAEL in place and working to be removed this am Neuro Check Frequency: per routine Urinary Catheter in Place: No Catheter Insertion Date: 01/13/17 - Physician Discussed Patient with : Leo Patient Seen by : Leo Neurosurgery Physical Exam - Vitals, I&O, Labs I and O 01/16/17 01/17/17 01/18/17 05:59 05:59 05:59 Intake Total 600 350 Output Total 2560 1900 Balance -1960 -1550 Intake: Oral (ml) 600 350 Output: Urine (ml) 2500 1900 Bedside Commode 900 Catheter 400 Toilet 2100 1000 Wound Drainage (ml) 30 Left Back Miko Larson 30 Wound Drainage (ml) 30 Back 30 Other: Intake Quantity Yes Sufficient Number of Voids Bedside Commode 1 Catheter 1 Toilet 1 1 Number of Stools Toilet 1 1 Microbiology 01/13/17 20:11 Gram Stain - Final Vertebral Disc 01/13/17 20:11 Gram Stain - Final Vertebral Disc 01/13/17 20:11 Gram Stain - Final Vertebral Disc 01/13/17 20:11 Gram Stain - Final Vertebral Disc Vital Signs Temp Pulse Resp BP Pulse Ox 36.7 C 79 18 126/68 H 90 L 01/16/17 22:59 01/16/17 22:59 01/16/17 22:59 01/16/17 22:59 01/16/17 22:59 Laboratory Results 01/16/17 04:50 01/17/17 04:40 ICD10 Worksheet Patient Problems: Problems Problem Status Onset Bacteremia due to Staphylococcus aureus Acute Lumbar discitis Acute Vertebral osteomyelitis Acute
[2017-01-17] MEDS: MONTELUKAST SODIUM 10 MG TAB PO SCH ×2 (09:53→21:09)
[2017-01-17] MEDS: GABAPENTIN 300 MG CAP PO SCH ×3 (09:53→21:08)
[2017-01-17] MEDS: HYDROCORTISONE 10 MG TAB PO SCH ×2 (09:54→15:28)
[2017-01-17] MEDS: ENOXAPARIN 40 MG/0.4 ML SYR SC SCH (09:54)
[2017-01-17] MEDS: FAMOTIDINE 20 MG TAB PO SCH ×3 (09:54→21:08)
[2017-01-17] MEDS: SENNOSIDES/DOCUSATE SODIUM TAB PO SCH ×2 (09:54→21:12)
[2017-01-17] MEDS: IPRATROPIUM/ALBUTEROL 3 ML DEYVIAL IH PRN ×2 (10:58→17:41)
[2017-01-17] MEDS ORDERED: FUROSEMIDE 20 MG TAB PO ONE (11:58)
[2017-01-17] MEDS: BUDESONIDE 0.5 MG PO SCH (12:08)
[2017-01-17] MEDS: VANCOMYCIN 1.5 GM in D5W 250 ML IV SCH (12:37)
--- NOTE | 2017-01-17 14:57 | HOSPPROG ---
Hospitalist Progress Note Assessment/Plan: 71-year-old transferred from [facility] [place] where she was being treated for lumbar diskitis with IV cefazolin. she was transferred here after progressive disease was noted on follow-up imaging, she also developed elevated LFTs thought secondary to the cefazolin. # Acute lumbar diskitis -at L4 with MSSA bacteremia, she has already undergone a full course of 8 weeks of IV cefazolin. WBC 7 this am - lumbar xray (personally reviewed and interpreted) L3->5 fusion with L4/5 Diskitis - WBC currently 7 - cont Vanco 1 g IV q.24 hours- per ID - cont prn pain medications - postop care per Neurosurgery - physical therapy as tolerated # Elevated LFTs, enzymes improved, alk-phos still elevated but improving. No abdominal pain. Likely secondary to previous cephazolin-Ultrasound shows no stone but did have some polyps. # AHRF- pt with intermittent SOB chest x-ray (personally reviewed and interpreted) with bilateral effusions. exam is clear, continue nebs for now- they make her more comfortable oxygen saturations 93% on 2L - giving lasix 20mg Po x1 now can repeat based on response tomorrow # collagenous colitis- no active sx # chronic steroid therapy with secondary adrenal insufficiency - cont chronic meds # idiopathic lower extremity edema- monitor # proph - Lovenox # diet -regular # dispo - working on rehab placement - I discussed the case with ID - we will continue with Vancomycin Q24 currently Subjective: tired Objective: Vital Signs Temp Pulse Resp BP Pulse Ox 37.2 C 76 16 125/60 H 90 L 01/17/17 07:52 01/17/17 07:52 01/17/17 07:52 01/17/17 07:52 01/17/17 07:52 Microbiology 01/13/17 20:11 Gram Stain - Final Vertebral Disc 01/13/17 20:11 Gram Stain - Final Vertebral Disc 01/13/17 20:11 Gram Stain - Final Vertebral Disc 01/13/17 20:11 Gram Stain - Final Vertebral Disc Laboratory Results 01/16/17 04:50 01/17/17 04:40 01/16/17 01/17/17 01/18/17 05:59 05:59 05:59 Intake Total 600 350 200 Output Total 2560 1900 220 Balance -1960 -1550 -20 PT 12.8 SEC (12.0-15.0) 01/13/17 12:35 INR 0.97 (0.83-1.16) 01/13/17 12:35 - Physical Exam Constitutional: no apparent distress Eyes: anicteric sclera Ears, Nose, Mouth, Throat: moist mucous membranes Cardiovascular: regular rate and rhythym Respiratory: No expiratory wheeze, No inspiratory crackles Gastrointestinal: normoactive bowel sounds Genitourinary: no bladder fullness Skin: warm, normal color Musculoskeletal: No asymmetric calves Neurologic: AAOx3 Psychiatric: interacting appropriately, not anxious Lymph, Heme, Immunologic: no cervical LAD ICD10 Worksheet Patient Problems: Problems Problem Status Onset Bacteremia due to Staphylococcus aureus Acute Lumbar discitis Acute Vertebral osteomyelitis Acute
[2017-01-17 19:13] LABS: ANION GAP 6 mEq/L (8-16); CALCIUM 8.3 mg/dL (8.5-10.4); CARBON DIOXIDE 32 mEq/l (22-31); CHLORIDE 97 mEq/L (97-110); CREATININE 0.6 mg/dL (0.6-1.0); GLOMERULAR FILTRATION RATE > 60; GLUCOSE 106 mg/dL (70-100); POTASSIUM 3.7 mEq/L (3.5-5.2); SODIUM 135 mEq/L (134-144)
--- NOTE | 2017-01-17 23:01 | PCMIDPN ---
Assessment/Plan: Assessment: Lumbar diskitis and MSSA bacteremia -- recurrent after prior course of antibiotics. Treating with Vancomycin due to concerns for LFT elevation due to beta-lactam. Overall the patient is doing better. Plant to continue Vancomycin for a prolonged course of 8 weeks since surgery and likely proceed to oral suppresion after completion. Plan: 1) Continue Vancomycin 1.5 G IV q 24 hours through 03/10/17. 2) Stable for discharge once placement complete. Subjective: Patient is resting in her hospital room. She is in good spirits. No particular complaint. Objective: Vancomycin #8 Vital Signs Temp Pulse Resp BP Pulse Ox 36.6 C 75 19 128/53 H 92 01/17/17 22:35 01/17/17 22:35 01/17/17 22:35 01/17/17 22:35 01/17/17 22:35 Microbiology 01/13/17 20:11 Gram Stain - Final Vertebral Disc 01/13/17 20:11 Gram Stain - Final Vertebral Disc 01/13/17 20:11 Gram Stain - Final Vertebral Disc 01/13/17 20:11 Gram Stain - Final Vertebral Disc Laboratory Results 01/16/17 04:50 01/17/17 18:30 01/16/17 01/17/17 01/18/17 05:59 05:59 05:59 Intake Total 600 350 700 Output Total 2560 1900 1745 Balance -1960 -1550 -1045 C-Reactive Protein 251.9 mg/L (<10.0) H 01/10/17 11:35 - Physical Exam General Appearance: WD/WN, alert, no apparent distress, non-toxic Respiratory: lungs clear, normal breath sounds, No respiratory distress Cardiac/Chest: regular rate, rhythm, No tachycardia Skin: normal color, warm/dry, No rash Neuro/Psych: alert, normal mood/affect, oriented x 3 ICD10 Worksheet Patient Problems: Problems Problem Status Onset Bacteremia due to Staphylococcus aureus Acute Vertebral osteomyelitis Acute Lumbar discitis Acute
[2017-01-18] MEDS: LEVOTHYROXINE 125 MCG TAB PO SCH (06:24)
[2017-01-18 07:27] LABS: ALANINE AMINOTRANSFERASE 32 IU/L (9-52); ALBUMIN 2.2 g/dL (3.5-5.0); ALKALINE PHOSPHATASE 245 IU/L (38-126); ANION GAP 6 mEq/L (8-16); ASPARTATE AMINOTRANSFERASE 26 IU/L (14-46); BILIRUBIN,TOTAL 0.5 mg/dL (0.1-1.4); CALCIUM 8.1 mg/dL (8.5-10.4); CARBON DIOXIDE 33 mEq/l (22-31); CHLORIDE 101 mEq/L (97-110); CREATININE 0.6 mg/dL (0.6-1.0); GLOMERULAR FILTRATION RATE > 60; GLUCOSE 76 mg/dL (70-100); POTASSIUM 3.4 mEq/L (3.5-5.2); SODIUM 140 mEq/L (134-144); TOTAL PROTEIN 4.1 g/dL (6.3-8.2)
[2017-01-18 08:18] VITALS: BP 115/65; PULSE 70; RESP 16; TEMP 98.7; O2SAT 90
[2017-01-18] MEDS ORDERED: POTASSIUM CL 20 MEQ/15 ML UDCUP PO ONE (08:23)
[2017-01-18] MEDS: MONTELUKAST SODIUM 10 MG TAB PO SCH (08:51)
[2017-01-18] MEDS: SENNOSIDES/DOCUSATE SODIUM TAB PO SCH (08:51)
[2017-01-18] MEDS: FAMOTIDINE 20 MG TAB PO SCH (08:51)
[2017-01-18] MEDS: GABAPENTIN 300 MG CAP PO SCH (08:51)
[2017-01-18] MEDS: HYDROCORTISONE 10 MG TAB PO SCH ×2 (08:51→13:50)
[2017-01-18] MEDS: ENOXAPARIN 40 MG/0.4 ML SYR SC SCH (08:52)
--- NOTE | 2017-01-18 09:11 | PDIAF ---
- Diagnosis Diagnosis: MSSA bacteremia/lumbar diskitis/vertebral osteomyelitis Code Status: Full Code - Medication Management Discharge Medications: Medications to Continue on Transfer Budesonide 0.5mg Cap 1 cap PO DAILY 01/08/17 [Last Taken Unknown] Famotidine [Pepcid 20 MG (*)] 20 mg PO TID 01/08/17 [Last Taken Unknown] Gabapentin [Neurontin 300 MG (*)] 900 mg PO TID 01/08/17 [Last Taken Unknown] Hydrocortisone [Cortef 10 mg (*)] 10 mg PO BID@,01/08/17 [Last Taken Unknown] Levothyroxine [Synthroid 125 mcg (*)] 125 mcg PO DAILY06 01/08/17 [Last Taken Unknown] Montelukast Sodium [Singulair 10 mg (*)] 5 mg PO BID 01/08/17 [Last Taken Unknown] oxyCODONE HCL [Oxycodone HCl ER] 20 mg PO BID 01/08/17 [Last Taken Unknown] Acetaminophen [Tylenol 325mg (*)] 650 mg PO Q4HRS PRN #0 tab 01/18/17 [Last Taken Unknown] Diazepam [Valium 5 MG (*)] 2.5 - 5 mg PO QID PRN #0 tab 01/18/17 [Last Taken Unknown] Ipratropium/Albuterol [Duoneb (*)] 3 ml IH Q6HRS #0 deyvial 01/18/17 [Last Taken Unknown] Methocarbamol [Robaxin 750 mg (*)] 750 mg PO QID PRN #0 tab 01/18/17 [Last Taken Unknown] Polyethylene Glycol 3350 [Miralax 17 gm (*)] 17 gm PO DAILY PRN #0 pkt 01/18/17 [Last Taken Unknown] Sennosides/Docusate Sodium [Senokot-S] 1 - 2 tab PO BID tab 01/18/17 [Last Taken Unknown] Temazepam [Restoril 15 MG (*)] 15 - 30 mg PO HS PRN #0 cap 01/18/17 [Last Taken Unknown] Vancomycin [Vancomycin (*)] 1.5 gm IV Q24H vial 01/18/17 [Last Taken Unknown] guaiFENesin [Mucinex 600 MG (*)] 1,200 mg PO BID PRN #0 tab.er 01/18/17 [Last Taken Unknown] oxyCODONE IR [Oxycodone Ir (*)] 5 - 10 mg PO Q3H PRN #0 tab 01/18/17 [Last Taken Unknown] Intermediate Antibiotics: Vancomycin 1.5 g IV Q 24 hours Intermediate Antibiotic Stop Date: 03/10/17 Discharge Medications: Refer to the Discharge Home Medication list for PRN reason. PICC Care - Routine: Yes - Orders Services needed: Registered Nurse, Physical Therapy, Occupational Therapy Diet Recommendation: no restrictions on diet Diet Texture: Regular Texture Diet - Labs/Radiology CBC Date: 01/20/17 (Weekly Q Friday) CMP Date: 01/20/17 (Weekly Q Friday) Creatinine Date: 01/23/17 (Weekly Q ) CRP Date: 01/20/17 (Weekly Q Friday) Vanco Trough Date and Time: Weekly Q Friday and - Follow Up Care Current Providers and Referrals: KANIKA MAY MD [Other] Marcelo Bailey MD [Medical Doctor] - Pamela Bronson MD [Medical Doctor] -
[2017-01-18] MEDS: BUDESONIDE 0.5 MG PO SCH (10:14)
--- NOTE | 2017-01-18 11:01 | NEUSURGPN ---
Assessment/Plan: Assessment: 71 yo female that is s/p TLIF at L4/5 with PSF L3-5 - POD#5 Plan: -Brace to be worn when out of bed -MICHAEL drain removed -Pain management, cont current regimen -pt states legs feel good and happy with this. Back still hurts and she expects this as normal after surgery -PT/OT-CPM -TEDs, SCDs, Lovenox started -Post op xrays look good -Dispo planning- plan for DC today to [facility]. OK for DC from NS standpoint -Follow up with Dr Bailey in 2-3 weeks -case management on board -call with any questions or concerns Subjective: Pt resting in bed, ready to DC to rehab today Objective: AAOx3 NAD VSS MAEx4 Motor 5/5 B LE +LT Incision cdi Urinary Catheter in Place: No Catheter Insertion Date: 01/13/17 Neurosurgery Physical Exam - Vitals, I&O, Labs I and O 01/17/17 01/18/17 01/19/17 05:59 05:59 05:59 Intake Total 350 700 Output Total 1900 1945 Balance -1550 -1245 Intake: Oral (ml) 350 700 Output: Urine (ml) 1900 1925 Bedside Commode 900 600 Toilet 1000 1325 Wound Drainage (ml) 20 Left Back Miko Larson 20 Other: Intake Quantity Yes Sufficient Number of Voids Bedside Commode 1 2 Toilet 1 1 Number of Stools Toilet 1 1 Microbiology 01/13/17 20:11 Gram Stain - Final Vertebral Disc 01/13/17 20:11 Gram Stain - Final Vertebral Disc 01/13/17 20:11 Gram Stain - Final Vertebral Disc 01/13/17 20:11 Gram Stain - Final Vertebral Disc Vital Signs Temp Pulse Resp BP Pulse Ox 37.1 C 70 16 115/65 90 L 01/18/17 08:00 01/18/17 08:00 01/18/17 08:00 01/18/17 08:00 01/18/17 08:00 Laboratory Results 01/16/17 04:50 01/18/17 06:30 ICD10 Worksheet Patient Problems: Problems Problem Status Onset Bacteremia due to Staphylococcus aureus Acute Lumbar discitis Acute Vertebral osteomyelitis Acute
[2017-01-18] MEDS: VANCOMYCIN 1.5 GM in D5W 250 ML IV SCH (11:59)
[2017-01-18] MEDS: oxyCODONE IR 5 MG TAB PO PRN (13:50)
--- NOTE | 2017-01-18 15:45 | GDS ---
[f rep st] DISCHARGE SUMMARY DISCHARGE DIAGNOSES: 1. Acute lumbar diskitis at L4 secondary to methicillin-sensitive Staphylococcus aureus. 2. Methicillin-sensitive Staphylococcus aureus bacteremia. 3. Transaminitis secondary to cefazolin, resolving. 4. Acute hypoxic respiratory failure secondary to body positioning and pleural effusions. 5. Collagenous colitis. 6. Chronic steroid therapy with secondary adrenal insufficiency. 7. Hypothyroidism. 8. Obesity. HISTORY OF PRESENT ILLNESS: A 71-year-old female who presented on 01/08/2017 from [facility] with complicated lumbar diskitis. For details of patient's initial presentation, please see t he history and physical dated 01/08/2017. CONSULTATIVE SERVICES: 1. Infectious Disease. 2. Neurosurgery. PROCEDURES: On 01/13/2017 patient was taken to the operating room for debridement of her L4-L5 disk itis, bone graft harvest and laminectomy at L3, L5. HOSPITAL COURSE: By issue: 1. Lumbar diskitis. Patient was seen by Neurosurgery, initiated on appropriate IV antibiotics and taken to the operating room for debridement. She had very rapid improvement in her pain symptoms po st debridement. She will continue a full prolonged course of IV antibiotics post disposition with v ancomycin. She is currently braced and will be followed outpatient by Neurosurgery. Antibiotic cou rse should conclude on 03/10/2017. She will be seen by both Neurosurgery and Infectious Disease chelsey or to that. 2. MSSA bacteremia. As above, patient will be on prolonged treatment with IV vancomycin. 3. Collagenous colitis. Chronic diagnosis for this patient. Has not been active during her hospit al stay. 4. Acute hypoxic respiratory failure. The patient has had fluctuating oxygen saturations, periodic ally oxygenating to room air without supplementation. Suspect worsening. Some splinting and limite d inspiration secondary to her bracing and body positioning. Repeat chest x-ray was obtained the da y before disposition, did show small pleural effusions. We did give her 1 treatment dose of oral La six with good diuretic response. My suspicion is she will mobilize additional fluids at rehab. We are not discharging her on Lasix at this time. Will allow rehab physicians to monitor her oxygenati on and lower extremity edema. 5. Chronic steroid use with secondary adrenal insufficiency. Patient was continued on her chronic steroid therapy, hydrocortisone 10 mg b.i.d. at 9 and 1400. 6. Hypothyroidism. Patient was continued on her Synthroid therapy without change. MEDICATIONS AT THE TIME OF DISPOSITION: Please reference medication reconciliation printed on 01/18. FOLLOWUP APPOINTMENTS: Include with Dr. Bailey and Dr. Bronson from Infectious Disease. She will be discharged to inpatient rehabilitation for ongoing care and recovery. PENDING STUDIES: At the time of this dictation include vertebral disk fungal cultures obtained 12/30 as well as bacterial cultures. All preliminary. No growth to date at the time of disposition. I spent greater than 30 minutes in the planning and coordination of this discharge. /[id number]/MODL
== END 2017-01-18 14:17 | DRG 456 ==
LOC: F3E 14:07 → F3N 01-13 17:29
PROVIDERS: ADMIT Neurological Surgery; ATTEND Hospitalist
DX: M46.26 Osteomyelitis of vertebra, lumbar region (principal); M46.46 Discitis, unspecified, lumbar region; R78.81 Bacteremia; J96.01 Acute respiratory failure with hypoxia; B95.61 Methicillin susceptible Staphylococcus aureus infection as the cause of diseases classified elsewhere; J90 Pleural effusion, not elsewhere classified; R74.0 Nonspecific elevation of levels of transaminase and lactic acid dehydrogenase [LDH]; R94.5 Abnormal results of liver function studies; K52.831 Collagenous colitis; E27.40 Unspecified adrenocortical insufficiency; E66.9 Obesity, unspecified; Z79.52 Long term (current) use of systemic steroids
CPT/HCPCS: 97116-GP; 97162-GP; 97164-GP; 97166-GO; 97168-GO; 97530-GO; 97530-GP; 97535-GO; C1713; G8978-GP-CJ; G8978-GP-CK; G8979-GP-CI; G8987-GO-CK; G8987-GO-CL; G8988-GO-CI; G8988-GO-CJ; J0330; J1030; J1335; J1650; J2250; J2370; J2405; J2704; J2997; J3010; J3370

== ENCOUNTER 2018-03-23 11:48 | Day surgery (SDC) | payer OTHER, MEDICARE ==
[2018-03-23] MEDS ORDERED: LR 1,000 ML IV ONE (13:17)
[2018-03-23] MEDS ORDERED: BUPIVACAINE/EPI 0.5% 30 ML SDV ONE ×2 (13:20→13:22)
[2018-03-23] MEDS ORDERED: BACITRACIN 50,000 UNITS/10 ML SYR IRR ONE (13:21)
[2018-03-23] MEDS ORDERED: IOPAMIDOL (ISOVUE-M 300) 15 ML VIAL ONE ×3 (13:21→15:11)
[2018-03-23] MEDS ORDERED: CHLORHEXIDINE GLUC HIBICLENS 118 ML BTL TP ONE (13:21)
--- NOTE | 2018-03-23 14:01 | CPEKG ---
Heart Rate: 71 RR Interval: 845 P-R Interval: 152 QRSD Interval: 92 QT Interval: 388 QTC Interval: 422 P [place]: 56 QRS [place]: 15 T Wave [place]: 30 EKG Severity - NORMAL ECG - EKG Impression: SINUS RHYTHM Electronically Signed By: Tres Kilpatrick 23-Mar-2018 14:10:19
[2018-03-23 14:19] LABS: PLATELET COUNT 247 10^3/uL (150-400)
[2018-03-23] MEDS ORDERED: CLINDAMYCIN 900 MG/DEXTROSE 50 ML IV ONE (14:23)
--- NOTE | 2018-03-23 14:23 | PDHPUP ---
History & Physical Update H&P update statement: This history and physical update is based on an assessment of the patient which was completed after admission or registration (within 24 hours), but prior to the surgery/procedure. H&P update: H&P reviewed & patient examined, no change in patient's condition since H&P completed
--- NOTE | 2018-03-23 14:28 | PDANEPAE ---
ANE Past Medical History - Cardiovascular History Hx Hypertension: No Hx Arrhythmias: No Hx Chest Pain: No Hx Coronary Artery / Peripheral Vascular Disease: No Hx CHF / Valvular Disease: No Hx Palpitations: No - Pulmonary History Hx COPD: No Hx Asthma/Reactive Airway Disease: No Hx Recent Upper Respiratory Infection: No Hx Oxygen in Use at Home: Yes Hx Sleep Apnea: No Sleep Apnea Screening Result - Last Documented: Negative Pulmonary History Comment: SHALLOW BREATHING/HYPOXIA - Neurologic History Hx Cerebrovascular Accident: No Hx Seizures: No Hx Dementia: No - Endocrine History Hx Diabetes: No Endocrine History Comment: HYPOTHYROID - Renal History Hx Renal Disorders: Yes Renal History Comment: ADRENAL FAILURE - Liver History Hx Hepatic Disorders: No - Neurological & Psychiatric Hx Hx Neurological and Psychiatric Disorders: Yes Neurological / Psychiatric History Comment: PTSD. SITUATIONAL ANXIETY - Cancer History Hx Cancer: No - Congenital Disorder History Hx Congenital Disorders: No - GI History Hx Gastrointestinal Disorders: Yes Gastrointestinal History Comment: REFLUX - Other Health History Other Health History: SEPSIS 10/2016. ACTIVE MOLLY STOMACH AND DOMENICA UPPER THIGHS. SENSITIVE SKIN TEARS EASILY. DOMENICA LOWER EXT EDEMA. BRUISES EASILY. DDD. COMPRESSION FX. OSTEOPOROSIS - Chronic Pain History Chronic Pain: Yes (LUMBAR REGION) - Surgical History Prior Surgeries: LUMBAR FUSION L3-03 JAN 2017. DOMENICA CATARACTS. TONSILLECTOMY. TUBAL LIGATION ANE Review of Systems Review of Systems: - Exercise capacity METS (RN): 1 METS ANE Patient History - Allergies Allergies/Adverse Reactions: cefazolin Allergy (Verified 03/13/18 13:51) CHEMICAL HEPATITIS gluten Allergy (Verified 03/13/18 14:31) ABD CRAMPING Milk Containing Products [dairy] Allergy (Verified 03/13/18 14:31) ABD CRAMPING prochlorperazine [From Compazine] Allergy (Verified 03/13/18 14:31) GI ISSUES soy Allergy (Verified 03/13/18 14:31) GI ISSUES - Home Medications Home Medications: Linnea Allergy DAILY 03/13/18 [Last Taken 03/23/18 07:00] Benadryl HS 03/13/18 [Last Taken 03/22/18 22:00] Calcitonin DAILY 03/13/18 [Last Taken 03/23/18 07:00] Calcitrate BID 03/13/18 [Last Taken 03/22/18] Colace PRN 03/13/18 [Last Taken 03/22/18] Cortef BID 03/13/18 [Last Taken Unknown] Doxycycline Calcium BID 03/13/18 [Last Taken 03/23/18 07:00] Food Enzymes TID 03/13/18 [Last Taken 03/23/18 07:00] Lasix DAILY 03/13/18 [Last Taken 1 Week Ago ~03/16/18] Lidocaine 4% BID 03/13/18 [Last Taken 03/22/18] Melatonin HS 03/13/18 [Last Taken 03/22/18 22:00] Nasacort HS 03/13/18 [Last Taken 03/23/18 07:00] Nystatin BID 03/13/18 [Last Taken Unknown] Potassium Chloride BID 03/13/18 [Last Taken 03/22/18] Ranitidine HCl BID 03/13/18 [Last Taken 03/22/18 22:00] Synthroid DAILY 03/13/18 [Last Taken 03/23/18 07:00] Zofran Odt 4 mg (*) SL DAILY 03/13/18 [Last Taken 03/23/18 07:00] oxyCODONE CR PRN 03/13/18 [Last Taken 2 Weeks Ago ~03/09/18] Hydrocortisone 03/23/18 [Last Taken 03/23/18 07:00] Miconazole Nitrate 2% [Micatin 2% Cream (*)] 03/23/18 [Last Taken 03/22/18 22: 00] - NPO status NPO Since - Liquids (Date): 03/23/18 NPO Since - Liquids (Time): 11:30 NPO Since - Solids (Date): 03/22/18 NPO Since - Solids (Time): 20:00 - Smoking Hx Smoking Status: Never smoked ANE Labs/Vital Signs - Labs Result Diagrams: 03/23/18 14:10 - Vital Signs Blood Pressure: 145/60 Heart Rate: 69 Respiratory Rate: 16 O2 Sat (%): 99 Height: 152.4 cm Weight: 81.647 kg ANE Physical Exam - Airway Neck exam: decreased ROM Mallampati Score: Class 2 Mouth exam: normal dental/mouth exam - Pulmonary Pulmonary: no respiratory distress - Cardiovascular Cardiovascular: regular rate and rhythym - ASA Status ASA Status: III ANE Anesthesia Plan Total IV Anesthesia: Yes
[2018-03-23] MEDS ORDERED: CLINDAMYCIN 900 MG/DEXTROSE/50 ML BAG IV ONE (14:29)
[2018-03-23] MEDS ORDERED: fentaNYL 100 MCG/2 ML INJ ONE ×2 (14:32→16:10)
[2018-03-23] MEDS ORDERED: LIDOCAINE 2% 100 MG/5 ML SYR ONE (14:33)
[2018-03-23] MEDS ORDERED: HYDROCORTISONE 100 MG/2 ML VIAL ONE (14:33)
[2018-03-23] MEDS ORDERED: PROPOFOL/EMULSION 500 MG/50 ML BOTTLE IV ONE ×2 (14:33→15:21)
[2018-03-23] MEDS ORDERED: MIDAZOLAM 2 MG/2 ML VIAL IVP ONE (14:37)
[2018-03-23] MEDS ORDERED: MIDAZOLAM 2 MG/2 ML VIAL ONE (14:40)
[2018-03-23] MEDS ORDERED: ONDANSETRON 4 MG/2 ML VIAL IVP PRN (15:49)
[2018-03-23] MEDS ORDERED: NALOXONE HCL 0.4 MG/ML INJ IVP PRN (15:49)
[2018-03-23] MEDS ORDERED: ALBUTEROL 3 ML DEYVIAL IH PRN (15:49)
--- NOTE | 2018-03-23 15:51 | POSTANESTH ---
Post Anesthetic Evaluation Cardiovascular Status: Similar to Pre-Op Cond Respiratory Status: Similar to Pre-op Cond. Level of Consciousness/Mental Status: Mildly Sleepy, Arousable Pain Control: Adequate, Prn Tx Ordered Nausea/Vomiting Control: Adequate, Prn Tx Ordered Complications Possibly Related to Anesthesia: None Noted
[2018-03-23] MEDS: fentaNYL 100 MCG/2 ML INJ IVP PRN ×3 (16:11→16:28)
[2018-03-23] MEDS ORDERED: oxyCODONE IR 5 MG TAB PO PRN (16:42)
--- NOTE | 2018-03-23 16:49 | POSTOPPROG ---
Post Op Note Date of Operation: 03/23/18 Surgeon: oCoper Watson Hha: none Anesthesiologist: Alina Anesthesia: IV Sedation Pre-op Diagnosis: L1 compression fracture Post-op Diagnosis: L1 and T12 compression fractures Indication: L1 compression fracture Procedure: T12 and L1 kyphoplasties Findings: successful kyphoplasty Inf/Abcess present in the surg proc area at time of surgery?: No EBL: Minimal
[2018-03-23 17:37] VITALS: BP 130/64
--- NOTE | 2018-03-24 08:26 | GOP ---
[f rep st] OPERATIVE REPORT DATE OF OPERATION: 03/23/2018 SURGEON: Cooper Watson MD NEUROSURGEON: Cooper Watson MD. DIGITAL MEDIA PLANNER: None. ANESTHESIA: IV deep sedation. PREOPERATIVE DIAGNOSIS: L1 subacute compression fracture. POSTOPERATIVE DIAGNOSIS: T12 acute compression fracture and L1 subacute compression fracture. PROCEDURE PERFORMED: 1. T12 bi pedicular balloon kyphoplasty. 2. L1 bi pedicular balloon kyphoplasty. 3. Use of intraoperative fluoroscopy. FINDINGS: kyphoplasty ESTIMATED BLOOD LOSS: Less than 5 cc. INDICATIONS: The patient is a 73-year-old woman with a history of lumbar spine surgery. She has had acute back pain for about a month. MRI showed a subacute L1 compression fracture with bone marrow edema. She was tried in a Tivoli brace , but her pain was still quite severe. She was then scheduled for kyphoplasty for pain relief. Of note, on the previous MRI, the T12 bone had normal height with only very mild edema beneath the superior endplate. DESCRIPTION OF PROCEDURE: After informed consent was obtained from the patient , the patient was brought to the operating room and a formal time-out was performed, identifying the patient by name, medical record number, and date of . IV deep sedation was administered by Anesthesia. Once the patient was deeply anesthetized, she was turned to the prone position on the Miko table. The thoracolumbar region was then prepped and draped in the normal sterile fashion and fluoroscopy was used to identify the pedicle entry points of L1. On lateral fluoroscopy, it was noted that there was also a T12 compression fracture, with approximately 20% to 30% loss of height. Given that this was clearly different from the MRI which had been obtained just a few weeks previous , this compression fracture was felt to be acute and given the patient's multiple comorbidities and severe pain, we elected to treat this fracture as well. We then localized the pedicle entry points of T12 as well. 10 cc of 0.25% Marcaine with epinephrine was infiltrated in the skin and subcutaneous tissue for analgesia. Stab incisions were made over the pedicle entry points, and 8- gauge access trocars were then used to gain access to the pedicles of T12 and L1. AP and lateral fluoroscopy was used to be sure that we were within the pedicles. Once these trocars entered into the vertebral bodies, the hand drill was used to drill forward into the vertebral body and then 5 cc kyphoplasty balloons were placed. These were then inflated under intermittent fluoroscopy to obtain a good cavity within the vertebral body. At L1, the bone was somewhat sclerotic, so the curette was used to clear away some bony fragments to get a better balloon inflation. After we had a good balloon inflation, the bone Fillers were then used to fill with methylmethacrylate cement with careful checking under fluoroscopy after 0.5 cc aliquots. There was some cement extravasation from the anterior right lateral aspect of the T12 vertebral body, but this was nowhere near the foramen and stopped after the cement injection. A total of 6 cc of methylmethacrylate cement was placed at T12 and 60 cc was also placed at L1. At this point, the access trocars were removed with care not to drag any cement into the soft tissues. The wounds were covered with Steri-Strips, and the patient was then taken to the recovery room in stable condition without any complications. FLUIDS AND URINE OUTPUT: Per the anesthesia record. COMPLICATIONS: None. /[id number]/MODL MTDD
== END 2018-03-23 18:50 | disposition home or self-care (01) ==
LOC: FSGY 11:48
PROVIDERS: ATTEND Neurological Surgery
PROC: 0QU03JZ Supplement Lumbar Vertebra with Synthetic Substitute, Percutaneous Approach (ICD-10-PCS; principal; 2018-03-23 14:30)
PROC: 0QS03ZZ Reposition Lumbar Vertebra, Percutaneous Approach (ICD-10-PCS; principal; 2018-03-23 14:30)
PROC: 0PU43JZ Supplement Thoracic Vertebra with Synthetic Substitute, Percutaneous Approach (ICD-10-PCS; principal; 2018-03-23 14:30)
PROC: 0PS43ZZ Reposition Thoracic Vertebra, Percutaneous Approach (ICD-10-PCS; principal; 2018-03-23 14:30)
DX: M48.54XA Collapsed vertebra, not elsewhere classified, thoracic region, initial encounter for fracture (principal); M48.56XA Collapsed vertebra, not elsewhere classified, lumbar region, initial encounter for fracture; E03.9 Hypothyroidism, unspecified; E66.2 Morbid (severe) obesity with alveolar hypoventilation; F43.10 Post-traumatic stress disorder, unspecified; F41.9 Anxiety disorder, unspecified
CPT/HCPCS: C1713; J1720; J2001; J2250; J2270; J2704; J3010; Q9967

== ENCOUNTER 2018-04-20 13:13 | Day surgery (SDC) | payer OTHER, MEDICARE ==
[2018-04-20] MEDS ORDERED: ACETAMINOPHEN 500 MG TAB PO ONE (13:45)
[2018-04-20] MEDS ORDERED: LIDOCAINE 1% 2 ML INJ ID PRN (13:46)
[2018-04-20] MEDS ORDERED: LR 1,000 ML IV ONE (13:46)
[2018-04-20] MEDS ORDERED: VANCOMYCIN HCL/NORMAL SALINE 250 ML IV ONE (14:00)
[2018-04-20] MEDS ORDERED: VANCOMYCIN PHARMACY TO DOSE MISC ONE (14:44)
[2018-04-20] MEDS ORDERED: CHLORHEXIDINE GLUC HIBICLENS 118 ML BTL TP ONE (16:07)
[2018-04-20] MEDS ORDERED: EPINEPHrine 1 MG/ML INJ ONE (16:08)
[2018-04-20] MEDS ORDERED: IOPAMIDOL (ISOVUE-M 300) 15 ML VIAL ONE (16:08)
[2018-04-20] MEDS ORDERED: BUPIVACAINE 0.25% 30 ML SDV ONE (16:08)
--- NOTE | 2018-04-20 16:14 | PDANEPAE ---
ANE Past Medical History - Cardiovascular History Hx Hypertension: No Hx Arrhythmias: No Hx Chest Pain: No Hx Coronary Artery / Peripheral Vascular Disease: No Hx CHF / Valvular Disease: No Hx Palpitations: No - Pulmonary History Hx COPD: No Hx Asthma/Reactive Airway Disease: No Hx Recent Upper Respiratory Infection: No Hx Oxygen in Use at Home: Yes O2 in Use at Home (L/minute): 3.5L cont Hx Sleep Apnea: No Sleep Apnea Screening Result - Last Documented: Negative Pulmonary History Comment: SHALLOW BREATHING/HYPOXIA - Neurologic History Hx Cerebrovascular Accident: No Hx Seizures: No Hx Dementia: No Neurologic History Comment: hx of spinal fusion 2017. recent kyphoplasty . DDD. COMPRESSION FX - Endocrine History Hx Diabetes: No Endocrine History Comment: hypothyroidism - Renal History Hx Renal Disorders: Yes Renal History Comment: ADRENAL FAILURE - Liver History Hx Hepatic Disorders: No - Neurological & Psychiatric Hx Hx Neurological and Psychiatric Disorders: Yes Neurological / Psychiatric History Comment: PTSD. SITUATIONAL ANXIETY - Cancer History Hx Cancer: No - Congenital Disorder History Hx Congenital Disorders: No - GI History Hx Gastrointestinal Disorders: Yes Gastrointestinal History Comment: REFLUX - Other Health History Other Health History: BRUISES EASILY. OSTEOPOROSIS. very sensitive skin - Chronic Pain History Chronic Pain: Yes (LUMBAR REGION) - Surgical History Prior Surgeries: 03/23/18 L1 kyphoplasty with Walter. 01/08/17 L3-5 spinal fusion with Leo. DOMENICA CATARACTS. TONSILLECTOMY. TUBAL LIGATION ANE Review of Systems Review of Systems: - Exercise capacity METS (RN): 2 METS ANE Patient History - Allergies Allergies/Adverse Reactions: cefazolin Allergy (Verified 04/16/18 16:08) CHEMICAL HEPATITIS gluten Allergy (Verified 04/16/18 16:08) ABD CRAMPING Milk Containing Products [dairy] Allergy (Verified 04/16/18 16:08) ABD CRAMPING prochlorperazine [From Compazine] Allergy (Verified 04/16/18 16:08) GI ISSUES soy Allergy (Verified 04/16/18 16:08) GI ISSUES - Home Medications Home Medications: Linnea Allergy DAILY 03/13/18 [Last Taken 04/20/18 10:15] Benadryl HS 03/13/18 [Last Taken 04/19/18] Calcitonin DAILY 03/13/18 [Last Taken 04/20/18] Calcitrate BID 03/13/18 [Last Taken 04/19/18] Colace PRN 03/13/18 [Last Taken 1 Week Ago ~04/13/18] Doxycycline Calcium BID 03/13/18 [Last Taken 04/20/18 10:15] Food Enzymes TID 03/13/18 [Last Taken 04/19/18] Lasix PRN 03/13/18 [Last Taken 04/18/18] Lidocaine 4% 03/13/18 [Last Taken 04/18/18] Melatonin 03/13/18 [Last Taken 04/19/18] Potassium Chloride 03/13/18 [Last Taken 04/19/18] Ranitidine HCl 03/13/18 [Last Taken 04/19/18] Synthroid 03/13/18 [Last Taken 04/20/18 10:15] Zofran Odt 4 mg (*) 03/13/18 [Last Taken 04/20/18 10:15] oxyCODONE CR PRN 03/13/18 [Last Taken 04/17/18] Hydrocortisone 03/23/18 [Last Taken 04/20/18 10:15] Singulair 04/16/18 [Last Taken 04/20/18 10:15] - NPO status NPO Since - Liquids (Date): 04/20/18 NPO Since - Liquids (Time): 10:15 NPO Since - Solids (Date): 04/19/18 NPO Since - Solids (Time): 21:30 - Smoking Hx Smoking Status: Never smoked - Family Anes Hx Family Hx Anesthesia Complications: none ANE Labs/Vital Signs - Labs Result Diagrams: 04/20/18 15:00 - Vital Signs Blood Pressure: 125/71 Heart Rate: 70 Respiratory Rate: 18 O2 Sat (%): 99 Height: 152.4 cm Weight: 77.111 kg ANE Physical Exam - Airway Mallampati Score: Class 2 - ASA Status ASA Status: III ANE Anesthesia Plan Anesthesia Plan: MAC Total IV Anesthesia: Yes
[2018-04-20] MEDS ORDERED: MIDAZOLAM 2 MG/2 ML VIAL ONE (16:16)
[2018-04-20] MEDS ORDERED: PROPOFOL/EMULSION 500 MG/50 ML BOTTLE IV ONE (16:17)
[2018-04-20] MEDS ORDERED: fentaNYL 100 MCG/2 ML INJ ONE ×2 (16:17→17:36)
[2018-04-20] MEDS ORDERED: HYDROCORTISONE 100 MG/2 ML VIAL ONE (16:41)
[2018-04-20] MEDS ORDERED: oxyCODONE IR 5 MG TAB PO PRN (16:58)
[2018-04-20] MEDS ORDERED: ONDANSETRON DISINTEGRATING 4 MG TAB PO PRN (16:59)
[2018-04-20] MEDS ORDERED: METHOCARBAMOL 1,000 MG in NS 50 ML IVP ONE (16:59)
[2018-04-20] MEDS ORDERED: NALOXONE HCL 0.4 MG/ML INJ IVP PRN (17:19)
[2018-04-20] MEDS ORDERED: LR 500 ML IV PRN (17:19)
[2018-04-20] MEDS ORDERED: ONDANSETRON 4 MG/2 ML VIAL IVP PRN (17:19)
[2018-04-20] MEDS ORDERED: fentaNYL 100 MCG/2 ML INJ IVP PRN (17:19)
--- NOTE | 2018-04-20 17:20 | POSTANESTH ---
Post Anesthetic Evaluation Cardiovascular Status: Normal, Stable Respiratory Status: Normal, Stable Level of Consciousness/Mental Status: Can Participate in Eval Pain Control: Adequate, Prn Tx Ordered Nausea/Vomiting Control: Adequate, Prn Tx Ordered Complications Possibly Related to Anesthesia: None Noted
--- NOTE | 2018-04-20 17:39 | GOP ---
[f rep st] OPERATIVE REPORT DATE OF OPERATION: 04/20/2018 SURGEON: Cooper Watson MD NEUROSURGEON: Cooper Watson MD TELEGRAPHIC SERVICE DISPATCHER: None. PREOPERATIVE DIAGNOSIS: T11 compression fracture. POSTOPERATIVE DIAGNOSIS: T11 compression fracture. PROCEDURE PERFORMED: Bilateral transpedicular T11 balloon kyphoplasty. FINDINGS: SPECIMENS: There were no specimens. ESTIMATED BLOOD LOSS: Minimal. INDICATIONS: The patient is a 73-year-old woman with osteoporosis. We done a previous T12 and L1 ky phoplasties several weeks previous after which she had excellent relief. Two weeks after this, she h ad sudden onset of again back pain and a new x-ray showed a T11 compression fracture. She presents e lectively for treatment for this fracture. DESCRIPTION OF PROCEDURE: after informed consent was obtained from the patient and the patient was b rought to the operating room and a formal time-out was performed, identifying the patient by name, ga dical record number, and date of . Preoperative antibiotics were given. Monitored anesthesia c are was induced with propofol, and the patient was turned to the prone position on the Miko table. All appropriate pressure points were padded and checked. The lower thoracic region was prepped and draped in normal sterile fashion. The pedicle entry points at T11 were marked using AP fluoroscopy and the skin was infiltrated with ab out 10 cc of 0.25% Marcaine with epinephrine for analgesia. Stab incisions were made over the pedicl e entry points and an 8 gauge access trocars were used to obtain transpedicular access into the T11 v ertebral body. Once this was obtained, the position was checked using AP and lateral fluoroscopy. T he hand drill was then used to drill into the vertebral body space. The 15 mm kyphoplasty balloons w ere then placed and inflated under AP and lateral fluoroscopy to be sure that these were well inflate d and not breaking through the endplates. Once we had a good fill, the balloons were removed and the bone fillers were used to fill the vertebr al body with methylmethacrylate cement in divided aliquots. A total of 5 cc of methylmethacrylate wa s placed into the vertebral body. We then carefully the access trocars and these were nicolás dwayne. Final AP and lateral fluoroscopy showed a small amount of cement extravasation laterally and an teriorly by the vertebral body, but no where near any neural compromise. Patient was turned back in the supine position and was taken to the recovery room in stable condition. COMPLICATIONS: There were no complications. FLUIDS/URINE OUTPUT: Per the anesthesia record. DRAINS: There were no drains. /[id number]/MODL
[2018-04-20 18:52] VITALS: BP 146/76
[2018-04-20] MEDS ORDERED: METHOCARBAMOL 750 MG TAB PO SCH (22:00)
--- NOTE | 2018-04-28 11:10 | PQFORM ---
PHYSICIAN QUERY FORM Needs Your Response This query form is being sent to you to assure this patient record is coded properly. Please respond to the question below: BARBER APPRENTICE QUESTION: Dear Dr. Watson, On 04.20, you performed a kyphoplasty on this patient for a compression fracture. In your indications for the procedure, you mention that the patient has osteoporosis. Based on the clinical indicators and the the patient's history of no traumatic injury, could the patient's diagnosis be further clarified as: x___ Osteoporosis with current pathological fracture of the thoracic vertebrae Compression fracture of T11, not due to osteoporosis Traumatic fracture of T11 Other Unknown fracture of T11 Thank you for clarifying, APRIL Montalvo HIM Coding INSTRUCTIONS FOR RESPONSE: Answer question by clicking on the "Edit Document" button. Move cursor to area below the stars. When complete, hit "Save." Click on the "Sign" button, then click "Sign" again. Type in your PIN and hit "Enter." MTDD
== END 2018-04-20 19:01 | disposition home or self-care (01) ==
LOC: FSGY 13:13
PROVIDERS: ATTEND Neurological Surgery
PROC: 0PU43JZ Supplement Thoracic Vertebra with Synthetic Substitute, Percutaneous Approach (ICD-10-PCS; principal; 2018-04-20 15:15)
PROC: 0PS43ZZ Reposition Thoracic Vertebra, Percutaneous Approach (ICD-10-PCS; principal; 2018-04-20 15:15)
DX: M80.08XA Age-related osteoporosis with current pathological fracture, vertebra(e), initial encounter for fracture (principal)
CPT/HCPCS: C1713; J0171; J1720; J2250; J2704; J2800; J3010; J3370; Q9967

== ENCOUNTER 2018-05-14 19:05 | Inpatient (IN) | payer OTHER, MEDICARE ==
[2018-05-14] MEDS ORDERED: HYDROmorphONE/DILAUDID 2 MG/ML INJ IVP ONE (19:42)
[2018-05-14] MEDS ORDERED: ONDANSETRON 4 MG/2 ML VIAL IVP ONE (19:42)
[2018-05-14] MEDS ORDERED: IOPAMIDOL (ISOVUE-300) 100 ML BTL ONE ×2 (19:45→20:07)
[2018-05-14 20:12] LABS: PLATELET COUNT 210 10^3/uL (150-400)
[2018-05-14 20:49] LABS: PLATELET COUNT 229 10^3/uL (150-400)
--- NOTE | 2018-05-14 21:06 | EDPHY ---
H & P Stated Complaint: N/V today, back pain-fx T10 Time Seen by Provider: 05/14/18 19:30 HPI/ROS: CHIEF COMPLAINT: Nausea, vomiting, back pain HISTORY OF PRESENT ILLNESS: This is a 73-year-old female with a history of recent T10 compression fracture presents from [place] due to concerns regarding right-sided pleural effusion, nausea, and vomiting. Patient was seen today by Dr. Watson for evaluation of the T10 compression fracture. 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 Her primary care physician as does saraed suspect that the patient may have gallbladder disease and also may be having nausea vomiting from steroid withdrawal. Today, after seen Dr. Nina, she returned as does sara and had recurrent nausea and vomiting. She contacted her primary care physician who advised that she should be transferred via ambulance to [facility] for further evaluation of her chronic nausea vomiting, her significant back pain, as well as further evaluation for a right-sided pleural effusion which was identified on MRI of the thoracic spine done on May 07. Patient does tell me she has been known to have pleural effusions in the past. Review of the patient's recent visit at [facility] indicates that the patient did have a gallbladder ultrasound on March 05 demonstrating gallbladder polyps but no gallstones. Patient states that she is post to be having either a HIDA scan her ERCP but due to her back pain and back fractures has been unable to be scheduled. Patient currently denies fevers or chills. She denies chest pain. She complains of nausea vomiting. Denies urinary complaints. Complains of pain in her back. REVIEW OF SYSTEMS: A comprehensive 10 system review of systems was reviewed and is otherwise negative aside from elements mentioned in the history of present illness. PAST MEDICAL HISTORY: Multiple vertebral body compression fractures, pleural effusion, chronic nausea and vomiting. Patient is on chronic O2. SOCIAL HISTORY: Patient lives in [facility]. She recently lost her . VITAL SIGNS Reviewed by me. O2 sat 86% on arrival. On my examination O2 sat is 93% on 3 L GENERAL: Somewhat overweight individual, seems debilitated. Able to walk to the bathroom here with a walker. No obvious respiratory distress. HEENT: Atraumatic. Eyes: No icterus, no injection. Mouth: moist mucous membranes. No erythema or lesions. Neck: supple with no adenopathy. LUNGS: Diminished breath sounds at the right lateral chest with faint crackles. Patient is unwilling to sit up for me for full cardiopulmonary examination. Clear anteriorly and on the left. CARDIAC: Regular rate and rhythm, no rubs, murmurs or gallops. ABDOMEN: Soft, no appreciable tenderness. Nondistended. Normal bowel sounds. BACK: No CVA tenderness. Unable to examine the full back secondary to the patient's pain and unwillingness to turn on her side. EXTREMITIES: No trauma. Trace edema. Patient states chronic. NEURO: Alert and oriented, grossly nonfocal. SKIN: Warm and dry, no rash. PSYCHIATRIC: Normal mentation, no agitation. - Personal History Current Tetanus/Diphtheria Vaccine: Unsure - Medical/Surgical History Hx Asthma: No Hx Chronic Respiratory Disease: No Hx Diabetes: No Hx Cardiac Disease: No Hx Renal Disease: No Hx Cirrhosis: No Hx Alcoholism: No Hx HIV/AIDS: No Hx Splenectomy or Spleen Trauma: No Other PMH: colitis, hypothyroidism, adrenal insufficency, chronic back pain, T10 fx, - Social History Smoking Status: Never smoked Constitutional: Initial Vital Signs Temperature (C) 36.8 C 05/14/18 19:24 Heart Rate 74 05/14/18 19:24 Respiratory Rate 16 05/14/18 19:24 Blood Pressure 128/70 H 05/14/18 19:24 O2 Sat (%) 86 L 05/14/18 19:24 O2 Delivery Mode Nasal Cannula O2 (L/minute) 2 Allergies/Adverse Reactions: cefazolin Allergy (Verified 05/14/18 19:26) CHEMICAL HEPATITIS gluten Allergy (Verified 05/14/18 19:26) ABD CRAMPING Milk Containing Products [dairy] Allergy (Verified 05/14/18 19:26) ABD CRAMPING prochlorperazine [From Compazine] Allergy (Verified 05/14/18 19:26) GI ISSUES soy Allergy (Verified 05/14/18 19:26) GI ISSUES Home Medications: Medication Instructions Recorded Calcitonin [Fortical (*)] 200 units NASAL DAILY 05/14/18 Doxycycline Hyclate [Vibramycin 100 mg PO BID 05/14/18 100 MG (*)] Fexofenadine HCl [Linnea Allergy] 180 mg PO DAILY 05/14/18 Furosemide [Lasix 40 MG (*)] 40 mg PO DAILY 05/14/18 Herbals/Supplements -Info Only 1 ea PO DAILY 05/14/18 Hydrocortisone [Cortef 10 mg (*)] 10 mg PO BID 05/14/18 K Effervescent 25 meq PO BID 05/14/18 Levothyroxine [Synthroid 112 mcg 112 mcg PO DAILY06 05/14/18 (*)] Lidocaine 4%/Menthol 1% [Icy Hot 2 patch TD DAILY 05/14/18 Lidocaine/Menthol 4%/1% Patch (*)] Methocarbamol [Robaxin 750 mg (*)] 750 mg PO TID 05/14/18 Montelukast Sodium [Singulair 10 10 mg PO DAILY@1800 05/14/18 mg (*)] Nystatin/Triamcin [Mycolog II 1 jovanna TP BID 05/14/18 Cream (RX)] Ondansetron HCl [Zofran] 4 mg PO Q6 PRN 05/14/18 Ranitidine HCl 300 mg PO BID 05/14/18 oxyCODONE IR [Oxycodone Ir (*)] 5 - 10 mg PO Q4 PRN 05/14/18 Pantoprazole Sodium [Protonix 40mg 40 mg PO BID #60 tab 05/18/18 (*)] Medical Decision Making - Diagnostics Imaging Results: Imaging Impressions Abdomen CT 05/14/18 19:43 Impression: 1. Subtle inflammatory stranding near the pancreatic uncinate process may represent pancreatitis, correlation with amylase/lipase is recommended. 2. Fecal impaction at the rectum. 3. 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 4. Moderate right pleural effusion. Dr. Hale was notified of these findings at 9:19 PM on 05/14/2018 ED Course/Re-evaluation: 73-year-old female presenting from [facility] with primary complaints of back pain, nausea, vomiting, any history of a "massive" right-sided pleural effusion. Evaluation emergency department included EKG demonstrating normal sinus rhythm. Chest x-ray demonstrating large right-sided pleural effusion. Bedside troponin is negative. CBC is normal. CT scan of abdomen pelvis: No obstruction, patient does have a spigallean hernia with no obstruction. The patient does have a significant constipation with fecal impaction. She also has stranding around her pancreas. Laboratory evaluation has been somewhat difficult as the patient's chemistries are repeatedly hemolyzed. At the point of this dictation the lipase is not available. Differential Diagnosis: Differential diagnosis of the patient's nausea and vomiting was considered including but not limited to gastroenteritis, gastritis, withdrawal symptoms from steroids, biliary dysfunction, pancreatitis, medication side effect. - Data Points Laboratory Results: Laboratory Results 05/14/18 20:11 05/14/18 21:04 Medications Given: Discontinued Medications Bisacodyl (Dulcolax Rectal) 10 mg AR ONCE ONE Stop: 05/15/18 15:07 Last Admin: 05/15/18 16:18 Dose: 10 mg Calcitonin (Fortical) 200 units NS DAILY [place] Stop: 11/11/18 08:59 Last Admin: 05/19/18 08:22 Dose: 1 spr Cetirizine HCl (Zyrtec) 10 mg PO DAILY [place] Stop: 11/11/18 08:59 Last Admin: 05/19/18 08:22 Dose: 10 mg Cetirizine HCl (Zyrtec) 10 mg PO ONCE ONE Stop: 05/18/18 23:12 Last Admin: 05/17/18 23:18 Dose: 10 mg Doxycycline Hyclate (Doxycycline Hyclate) 100 mg PO BID PENDING SALE TO [facility] PRN Reason: Protocol Stop: 06/14/18 00:14 Last Admin: 05/19/18 08:22 Dose: 100 mg Famotidine (Pepcid) 20 mg PO BID [place] Stop: 11/11/18 00:14 Last Admin: 05/17/18 18:08 Dose: Not Given Furosemide (Lasix) 40 mg PO DAILY [place] Stop: 11/11/18 08:59 Last Admin: 05/15/18 09:15 Dose: Not Given Hydrocortisone (Cortef) 10 mg PO BID [place] Stop: 11/11/18 00:14 Last Admin: 05/19/18 08:22 Dose: Not Given Hydromorphone HCl (Dilaudid) 1 mg IVP EDNOW ONE Stop: 05/14/18 19:43 Last Admin: 05/14/18 19:50 Dose: 1 mg Sodium Chloride (Ns) 1,000 mls @ 75 mls/hr IV CONT [place] Stop: 11/10/18 22:44 Last Admin: 05/14/18 23:59 Dose: 1,000 mls Potassium Chloride/Sodium Chloride (Ns W/ 20 Kcl/L) 1,000 mls @ 75 mls/hr IV CONT [place] Stop: 05/17/18 02:19 Last Admin: 05/16/18 14:00 Dose: 1,000 mls Lactated Ringer's (Lr) 1,000 mls @ 0 mls/hr IV ONCE ONE PRN Reason: KVO Stop: 05/17/18 10:13 Last Admin: 05/17/18 14:34 Dose: Not Given Lactulose (Cephulac) 20 gm PO TID PRN; Protocol PRN Reason: Constipation Stop: 11/10/18 22:40 Last Admin: 05/15/18 18:32 Dose: 20 gm Levothyroxine Sodium (Synthroid) 112 mcg PO DAILY06 [place] Stop: 11/11/18 05:59 Last Admin: 05/19/18 08:22 Dose: 112 mcg Miscellaneous Information (Patch Removal) 1 ea TD DAILY21 [place] Stop: 11/11/18 20:59 Last Admin: 05/18/18 21:49 Dose: Not Given Miscellaneous Medication (Icy Hot Lidocaine/Menthol 4%/1% Patch) 2 patch TD DAILY [place] Stop: 11/11/18 08:59 Last Admin: 05/17/18 17:03 Dose: Not Given Miscellaneous Medication (Non-Formulary) 2 ea TP DAILY [place] Stop: 11/11/18 08:59 Last Admin: 05/19/18 08:27 Dose: 2 jovanna Montelukast Sodium (Singulair) 10 mg PO DAILY@1800 [place] Stop: 11/11/18 00:14 Last Admin: 05/18/18 18:22 Dose: 10 mg Ondansetron HCl (Zofran) 4 mg IVP EDNOW ONE Stop: 05/14/18 19:43 Last Admin: 05/14/18 19:50 Dose: 4 mg Ondansetron HCl (Zofran) 4 mg IVP Q4HRS PRN PRN Reason: Nausea/Vomiting, Use 1st Stop: 11/10/18 22:37 Last Admin: 05/16/18 22:41 Dose: 4 mg Ondansetron HCl (Zofran Odt) 4 mg PO Q6 PRN PRN Reason: Nausea/Vomiting Stop: 11/11/18 00:00 Last Admin: 05/16/18 10:49 Dose: 4 mg Ondansetron HCl (Zofran Odt) 4 mg PO ONCE ONE Stop: 05/16/18 13:46 Last Admin: 05/16/18 13:59 Dose: 4 mg Oxycodone HCl (Oxycodone Ir) 5 - 10 mg PO Q4 PRN PRN Reason: Breakthrough pain Stop: 05/25/18 00:00 Last Admin: 05/15/18 18:33 Dose: 10 mg Pantoprazole Sodium (Protonix) 40 mg IVP BID [place] Stop: 11/13/18 10:59 Last Admin: 05/18/18 09:16 Dose: 40 mg Pantoprazole Sodium (Protonix) 40 mg PO BID PENDING SALE TO [facility] Stop: 11/14/18 20:59 Last Admin: 05/19/18 08:22 Dose: 40 mg Potassium Chloride (Klor Packets) 20 meq PO BID PENDING SALE TO [facility] Stop: 11/11/18 00:29 Last Admin: 05/19/18 08:23 Dose: Not Given Senna/Docusate Sodium (Senokot-S) 1 - 2 tab PO BID [place] PRN Reason: Protocol Stop: 11/11/18 08:59 Last Admin: 05/19/18 08:22 Dose: 2 tab Point of Care Test Results: Chemistry 05/14/18 19:47 POC Troponin I 0.00 ng/mL ng/mL (0.00-0.08) Departure - Departure Disposition: [facility] Inpatient Acute Clinical Impression: Abdominal pain Qualifiers: Abdominal location: generalized Qualified Code(s): R10.84 - Generalized abdominal pain Nausea and vomiting Qualifiers: Vomiting type: unspecified Vomiting Intractability: non-intractable Qualified Code(s): R11.2 - Nausea with vomiting, unspecified Condition: Fair
[2018-05-14] MEDS ORDERED: IOPAMIDOL (ISOVUE 370) 100 ML BTL IV ONE (22:07)
[2018-05-14] MEDS ORDERED: ACETAMINOPHEN 325 MG TAB PO PRN (22:38)
[2018-05-14] MEDS ORDERED: LACTULOSE 20 GM/30 ML UDCUP PO PRN (22:41)
[2018-05-14] MEDS ORDERED: BISACODYL 10 MG SUPP PR PRN (22:41)
[2018-05-14] MEDS ORDERED: POLYETHYLENE GLYCOL 3350 17 GM PKT PO PRN (22:41)
[2018-05-14] MEDS ORDERED: NS 1,000 ML IV SCH (22:45)
[2018-05-15] MEDS ORDERED: oxyCODONE IR 5 MG TAB PO PRN (00:01)
[2018-05-15] MEDS ORDERED: METHOCARBAMOL 750 MG TAB PO PRN (00:01)
[2018-05-15] MEDS: HYDROCORTISONE 10 MG TAB PO SCH ×4 (00:25→21:12)
[2018-05-15] MEDS: MONTELUKAST SODIUM 10 MG TAB PO SCH ×2 (00:25→17:29)
[2018-05-15] MEDS: DOXYCYCLINE HYCLATE 100 MG CAP/TAB PO SCH ×3 (00:25→21:12)
[2018-05-15] MEDS: FAMOTIDINE 20 MG TAB PO SCH ×3 (00:26→21:12)
[2018-05-15] MEDS: POTASSIUM CL 20 MEQ PKT PO SCH ×3 (01:27→21:13)
[2018-05-15] MEDS: ONDANSETRON 4 MG/2 ML VIAL IVP PRN (01:35)
--- NOTE | 2018-05-15 02:12 | PDGENHP ---
History and Physical - Chief Complaint Back pain, effusion, abdominal, pain nausea vomiting - History of Present Illness Source-patient provides majority of history and appears reliable. EMR was reviewed and case discussed with ED provider. Accompanying paper chart from [facility] was also reviewed. HPI-this is a pleasant 73-year-old female with multiple medical issues who presents from her PCPs office requesting assistance for further evaluation of a right pleural effusion and abdominal pain with nausea vomiting. Patient's history is quite extensive and includes multiple vertebral fractures most recently with repair 03/24/2018 T12-L1 and 04/20/2018 T11 and new finding at of fracture T10 complicated by a history of osteomyelitis and diskitis in 2017 status post washout antibiotic therapy. Patient is followed by Dr. Watson who recommended conservative management and treatment of her T10 fracture at this time. Patient has continued to have pain control issues and has been on chronic narcotic therapy in has escalated her treatment independently due to complaints of pain worsened by movement.k patient's mobility has been significantly affected. She does require use of a walker and assistance with her ADLs due to pain. Patient denies any fevers or pain chills. Issue #2. - it was noted that on a MRI obtained 05/07/2018 that patient had an a large pleural effusion on the right side. Patient has not had evaluation of this. She reports a history of a fusion last year postoperatively. She denies any recent history of echocardiogram or further evaluation of her fusion. She is chronically on 3 liters/minute continuous oxygen since her discharge from hospital 2017. She denies any acute exacerbation of her shortness of breath and usually will worsen when she were goes without her supplemental oxygen for extended periods of time. She denies any dyspnea on exertion orthopnea or increased lower extremity edema. She does report increased of a mucous productive cough. Issue #3 - Patient with chronic ongoing abdominal pain mostly upper abdomen cramping type pain. Patient is also concerned regarding persistent distention , and nausea vomiting along with more recently constipation issues related to patient's chronic opiate use. Patient states she has been trying to use a bowel regimen at home but her last bowel movement was approximately 7 days ago. She does admit she has escalated her narcotic scheduled due to increasing pain. There were concerns that patient may have some issues with adrenal insufficiency and so her steroids were increased back to her baseline dose although she was posterior on taper by her report in January. She has not made any adjustments and continues to take hydrocortisone 20 mg in the morning and 10 at night. It was also discussed with her by PCP that there is concerns for possible gallbladder disease and recommended patient have a HIDA scan which is not available in [place].She has been on a low-fat diet thinking that her pain could be gallbladder related. Patient reports that due to her pain driving down from [place] to [place] some would be too difficult as she would need some sort of pain medication to sustain her during the travels and movement in and out of the car. Patient had an ultrasound of her abdomen 2017 that showed probable gallbladder polyp otherwise negative for mass or biliary dilation. No definite evidence for stone. No pericholecystic fluid present. History Information - Allergies/Home Medication List Allergies/Adverse Reactions: cefazolin Allergy (Verified 05/14/18 19:26) CHEMICAL HEPATITIS gluten Allergy (Verified 05/14/18 19:26) ABD CRAMPING Milk Containing Products [dairy] Allergy (Verified 05/14/18 19:26) ABD CRAMPING prochlorperazine [From Compazine] Allergy (Verified 05/14/18 19:26) GI ISSUES soy Allergy (Verified 05/14/18 19:26) GI ISSUES Home Medications: Calcitonin [Fortical (*)] 200 units NASAL DAILY 05/14/18 [Last Taken Unknown] Doxycycline Hyclate [Vibramycin 100 MG (*)] 100 mg PO BID 05/14/18 [Last Taken Unknown] Fexofenadine HCl [Linnea Allergy] 180 mg PO DAILY 05/14/18 [Last Taken Unknown] Furosemide [Lasix 40 MG (*)] 40 mg PO DAILY 05/14/18 [Last Taken Unknown] Herbals/Supplements -Info Only 1 ea PO DAILY 05/14/18 [Last Taken Unknown] Hydrocortisone [Cortef 10 mg (*)] 10 mg PO BID 05/14/18 [Last Taken Unknown] K Effervescent 25 meq PO BID 05/14/18 [Last Taken Unknown] Levothyroxine [Synthroid 112 mcg (*)] 112 mcg PO DAILY06 05/14/18 [Last Taken Unknown] Lidocaine 4%/Menthol 1% [Icy Hot Lidocaine/Menthol 4%/1% Patch (*)] 2 patch TD DAILY 05/14/18 [Last Taken Unknown] Methocarbamol [Robaxin 750 mg (*)] 750 mg PO TID 05/14/18 [Last Taken Unknown] Montelukast Sodium [Singulair 10 mg (*)] 10 mg PO DAILY@1800 05/14/18 [Last Taken Unknown] Nystatin/Triamcin [Mycolog II Cream (RX)] 1 jovanna TP BID 05/14/18 [Last Taken Unknown] Ondansetron HCl [Zofran] 4 mg PO Q6 PRN 05/14/18 [Last Taken Unknown] Ranitidine HCl 300 mg PO BID 05/14/18 [Last Taken Unknown] oxyCODONE IR [Oxycodone Ir (*)] 5 - 10 mg PO Q4 PRN 05/14/18 [Last Taken Unknown ] I have personally reviewed and updated: family history, medical history, social history, surgical history - Past Medical History Additional medical history: Multiple thoracic spine compression fractures T10- 11 12 and L1. Chronic back pain. Chronic narcotic therapy. Chronic constipation. Chronic abdominal pain with nausea vomiting. Right-sided pleural effusion. Chronic O2 dependence. Collagenous colitis. Hypothyroidism , multinodular thyroid. Secondary adrenal insufficiency. History MSSA bacteremia and vertebral osteomyelitis 11/18/2016 status post washout and antibiotics. Osteoporosis. Obesity BMI 32.2. HLD. Hemorrhoids. Vitamin-D deficiency. Osteoarthritis. Chronic lower extremity edema. GERD. Glaucoma. MALI. BPPV - Surgical History Additional surgical history: BTL. Cataract extraction with lens placement. Lumbar spine decompression stabilization 01/18/2017 history diskitis and osteomyelitis MSSA. x1. T&A. Kyphoplasty 03/20/2018 T12-L1 and T11 - Family History Additional family history: Sister 1 - age 67 with history CVA, HTN, HLD, MALI, osteopenia. Sister 2-66 osteopenia, thyroid problems, retinal detachment. Sister 3 - 65 DJD of the back, HTN, HLD, stress related issues, diverticulitis, colitis, osteopenia. Father- due to heart disease. CABG x4 valve replacement. Mother-, asthma, osteoporosis, vascular dementia, TIA, COPD with history of tobacco use age 92 - Social History Smoking Status: Never smoked Alcohol Use: None Drug Use: None Additional social history: Patient is and lives alone at her home in [place]. She has adult son who has history of asthma. Review of Systems Review of Systems: ROS: 10pt was reviewed & negative except for what was stated in HPI & below Constitutional: Reports: malaise, weakness (Generalized). Denies: chills, fever Cardiac: Reports: edema (Chronic lower extremity edema without acute changes or worsening). Denies: chest pain, lightheadedness, palpitations, syncope Respiratory: Reports: cough, shortness of breath (Without oxygen for prolonged periods.). Denies: orthopnea Gastrointestinal: Reports: vomitting, abdominal pain, abdominal distention, constipation, nausea. Denies: diarrhea Genitourinary: Denies: dysuria, hematuria Muscolosketal: Reports: back pain, muscle pain (Back spasm) Skin: Reports: no symptoms Neurological: Reports: weakness (Generalized weakness and fatigue. No focal symptoms reported.). Denies: anxiety, depressed, headache, numbness, tingling Hematologic/Lymphatic: Reports: no symptoms Physical Exam Physical Exam: Selected Entries 05/14/18 19:24 Blood Pressure Automatic Method Heart Rate 74 Respiratory 16 Rate O2 Sat (%) 86 L Temperature (C) 36.8 C Blood Pressure 128/70 H Mean Arterial 89 Pressure (MAP) O2 Delivery Room Air Mode Temperature Oral Source Temp Pulse Resp BP Pulse Ox 36.4 C 66 17 116/75 100 05/14/18 23:16 05/14/18 23:16 05/14/18 23:16 05/14/18 23:16 05/14/18 23:16 O2 (L/minute) 2 Constitutional: no apparent distress, appears nourished, chronically ill appearing, obese, other (NAD. Patient is lying quietly in bed and still.) Eyes: PERRL (Lens reflex appreciated. Bifocals in place.), anicteric sclera, EOMI, No scleral injection Ears, Nose, Mouth, Throat: no oral mucosal ulcers, dry mucous membranes, other ( No nasal discharge), No poor dentition, No hard of hearing Cardiovascular: regular rate and rhythym, no murmur, rub, or gallop, pulses symmetric bilaterally, edema (Chronic nonpitting lower extremity edema.) Peripheral Pulses: 1+: dorsalis-pedis (R), dorsalis-pedis (L) Respiratory: no respiratory distress, reduced air movement (Decreased air movement bibasilarly a right worse than left.), inspiratory crackles ( Occasional lower lung maahraj.), No expiratory wheeze, No rhonchi Gastrointestinal: soft, non-tender abdomen, no palpable masses, other (Obese abdomen soft but full. Hypoactive bowel sounds.) Genitourinary: no bladder tenderness, No crabtree in urethra Skin: warm, no rashes or abrasions, other (Pallor), No mottled Musculoskeletal: generalized weakness, other (Generalized weakness but moves all extremities while lying in bed.) Neurologic: AAOx3, sensation intact bilaterally, weakness (Generalized weakness as noted above.), other (Grossly nonfocal exam. Limited secondary to patient's back pain and limited mobility.), No facial droop Psychiatric: interacting appropriately, not encephalopathic, thought process linear, anxious, flat affect, No poor insight, No poor judgement, No poor memory Lab Data & Imaging Review 05/15/18 05:45 05/15/18 05:45 WBC 5.79 10^3/uL (3.80-9.50) 05/14/18 20:11 RBC 4.78 10^6/uL (4.18-5.33) 05/14/18 20:11 Hgb 13.9 g/dL (12.6-16.3) 05/14/18 20:11 Hct 42.1 % (38.0-47.0) 05/14/18 20:11 MCV 88.1 fL (81.5-99.8) 05/14/18 20:11 MCH 29.1 pg (27.9-34.1) 05/14/18 20:11 MCHC 33.0 g/dL (32.4-36.7) 05/14/18 20:11 RDW 16.0 % (11.5-15.2) H 05/14/18 20:11 Plt Count 229 10^3/uL (150-400) 05/14/18 20:11 MPV 12.2 fL (8.7-11.7) H 05/14/18 20:11 Neut % (Auto) 66.2 % (39.3-74.2) 05/14/18 20:11 Lymph % (Auto) 14.2 % (15.0-45.0) L 05/14/18 20:11 [place] % (Auto) 14.9 % (4.5-13.0) H 05/14/18 20:11 Eos % (Auto) 2.8 % (0.6-7.6) 05/14/18 20:11 Baso % (Auto) 1.0 % (0.3-1.7) 05/14/18 20:11 Nucleat RBC Rel Count 0.0 % (0.0-0.2) 05/14/18 20:11 Absolute Neuts (auto) 3.84 10^3/uL (1.70-6.50) 05/14/18 20:11 Absolute Lymphs (auto) 0.82 10^3/uL (1.00-3.00) L 05/14/18 20:11 Absolute Monos (auto) 0.86 10^3/uL (0.30-0.80) H 05/14/18 20:11 Absolute Eos (auto) 0.16 10^3/uL (0.03-0.40) 05/14/18 20:11 Absolute Basos (auto) 0.06 10^3/uL (0.02-0.10) 05/14/18 20:11 Absolute Nucleated RBC 0.00 10^3/uL (0-0.01) 05/14/18 20:11 Immature Gran % 0.9 % (0.0-1.1) 05/14/18 20:11 Immature Gran # 0.05 10^3/uL (0.00-0.10) 05/14/18 20:11 D-Dimer 1.56 ug/mLFEU (0.00-0.50) H 05/14/18 21:30 Sodium 132 mEq/L (135-145) L 05/14/18 21:04 Potassium 3.1 mEq/L (3.3-5.0) L 05/14/18 21:04 Chloride 100 mEq/L (97-110) 05/14/18 21:04 Carbon Dioxide 28 mEq/l (22-31) 05/14/18 21:04 Anion Gap 4 mEq/L (8-16) L 05/14/18 21:04 BUN 18 mg/dL (7-23) 05/14/18 21:04 Creatinine 0.9 mg/dL (0.6-1.0) 05/14/18 21:04 Estimated GFR > 60 05/14/18 21:04 Glucose 85 mg/dL (70-100) 05/14/18 21:04 Calcium 7.3 mg/dL (8.5-10.4) L 05/14/18 21:04 Total Bilirubin 0.9 mg/dL (0.1-1.4) 05/14/18 21:04 Conjugated Bilirubin 0.4 mg/dL (0.0-0.5) 05/14/18 21:04 Unconjugated Bilirubin 0.5 mg/dL (0.0-1.1) 05/14/18 21:04 AST 18 IU/L (14-46) 05/14/18 21:04 ALT 32 IU/L (9-52) 05/14/18 21:04 Alkaline Phosphatase 156 IU/L (38-126) H 05/14/18 21:04 POC Troponin I 0.00 ng/mL (0.00-0.08) 05/14/18 19:47 Troponin I Cancelled 05/14/18 19:45 Total Protein 4.3 g/dL (6.3-8.2) L 05/14/18 21:04 Albumin 2.3 g/dL (3.5-5.0) L 05/14/18 21:04 Lipase 37 IU/L (23-300) 05/14/18 21:04 Urine Color LT. YELLOW 05/14/18 19:15 Urine Appearance CLEAR 05/14/18 19:15 Urine pH TNP 05/14/18 19:15 Ur Specific Rousseau TNP 05/14/18 19:15 Urine Protein TNP 05/14/18 19:15 Urine Ketones TNP 05/14/18 19:15 Urine Blood TNP 05/14/18 19:15 Urine Nitrate TNP 05/14/18 19:15 Urine Bilirubin TNP 05/14/18 19:15 Urine Urobilinogen TNP 05/14/18 19:15 Ur Leukocyte Esterase TNP 05/14/18 19:15 Urine RBC NONE SEEN /hpf (0-3) 05/14/18 19:15 Urine WBC 0-1 /hpf (0-3) 05/14/18 19:15 Ur Epithelial Cells NONE SEEN /lpf (NONE-1+) 05/14/18 19:15 Urine Glucose TNP 05/14/18 19:15 05/05/2018 laboratory studies-TSH 0.84 free T4 1.57 25 hydroxy vitamin-D 40.7 Cholesterol 225, HDL 72, triglycerides 187, VLDL 37 NAD 137, K 4.2, CO 108, CO2 23, glucose 70, BUN 17, creatinine 0.7, calcium 8.8 , ALT 27, albumin 3.2, alk-phos 158, AST 25, T bili 0.8, total protein 5.9 WBC 4.3, H&H 14.4 and 43.4, MCV of 90.0, platelet count 195 Imaging Review: PA and Lateral Chest History: Chest pain. Comparison: None available. Findings: Study is limited by poor inspiratory volumes. There is a moderate right pleural effusion with bibasilar atelectasis.. No pneumothorax.. Post vertebroplasty changes are seen in the thoracic and upper lumbar spine with extravasation of cement laterally. Lumbar posterior fusion hardware is partially visualized. The bones are osteopenic. There is a moderate compression deformity age- indeterminate of the T10 vertebral body. Impression: 1. Moderate right pleural effusion with bibasilar atelectasis. 2. Age-indeterminate T10 vertebral body compression fracture deformity Dictated By: Star Gutierrez MD CT Scan of the Abdomen and Pelvis (With Contrast) Clinical Indications: Abdominal pain nausea Technique: Dilute contrast was given orally prior to scanning. 90 ml of Isovue-300 were given intravenously by machine power injection. Multidetector helical CT imaging was performed from the diaphragm to the symphysis pubis. Dose reduction techniques were utilized. Compared to MRI abdomen from 01/07/2017 Findings: Abdomen: Moderate right pleural effusion with adjacent atelectasis. There is mild left basilar linear atelectasis and/or scarring. No hepatic masses are seen. The biliary ducts and gallbladder are unremarkable. A small amount of stranding is seen near the uncinate process of the pancreas posterior to the superior mesenteric artery on image 3-29. No loculated fluid collections are identified. The spleen is normal. The adrenal glands and kidneys are normal. No adenopathy and no masses are found. Moderate amount retained fecal material is seen in the colon. Bowel loops are normal in caliber. L3-L5 posterior lumbar fusion with multilevel thoracolumbar spondylosis and postvertebroplasty changes in T11-L1. Mild compression deformity of T10. Aortoiliac atherosclerotic calcification. Pelvis: The urinary bladder is distended. No free fluid in the pelvis. No masses are identified. Right lower quadrant spigelian hernia is seen in the right lower quadrant containing loops of bowel which are normal in caliber without bowel wall thickening. A large amount of retained fecal material is seen in the rectum. Impression: 1. Subtle inflammatory stranding near the pancreatic uncinate process may represent pancreatitis, correlation with amylase/lipase is recommended. 2. Fecal impaction at the rectum. 3. 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 4. Moderate right pleural effusion. Dr. Hale was notified of these findings at 9:19 PM on 05/14/2018 Addendum Impression should read moderate right pleural effusion Addendum Dictated By: Star Gutierrez MD *This report was compiled using a voice recognition dictation system and may contain typographical errors* 51 T:[id number]/14/[id number] Electronically Signed by:Star Gutierrez MD 05/14/18 [id number] CC: Mateus Louis MD; Laurita Hale MD; PCP Not In, Dictionary Chest CTA With IV Contrast History: Chest pain. Technique: Ultrafast ultrathin helical CT obtained through the chest after bolus administration of 90 mL of Isovue 370 nonionic contrast without complication. Soft tissue and bone window evaluation is performed. Dose reduction techniques were utilized. CT Chest: Findings: Linear atelectasis and/or scarring is seen in the lingula and left lower lobe. There is a moderate right pleural effusion with subjacent atelectasis. No consolidative airspace opacities are seen to suggest pneumonia. Heart size is upper limits of normal. There is coronary artery calcification. No pericardial effusion. No evidence of pneumothorax. Densely calcified 0.7 cm left thyroid nodule is seen. Multilevel thoracolumbar spondylosis is seen with age indeterminate compression deformity of T10 vertebral body. T11-L1 vertebroplasty changes are seen. There is a small hiatal hernia. CT Pulmonary Angiogram: Technique: Multiplanar and 3D reconstructions are reviewed on an independent 3D workstation. Findings: No filling defects or mural thickening is detected. Specifically, no evidence for acute or chronic pulmonary embolism. Atherosclerotic calcification of the thoracic aorta is seen without ectasia or aneurysmal dilatation. There is no evidence of thoracic aortic dissection.. Impression: 1. No evidence of pulmonary embolism, thoracic aortic dissection, or pericardial effusion. 2. Moderate left pleural effusion without evidence of pneumonia. 3. Age-indeterminate T10 compression fracture deformity. Dictated By: Star Gutierrez MD Imaging results from [facility] PCP orders was reviewed. # abdominal ultrasound - see HPI. Probable gallbladder polyp otherwise unremarkable. # MRI of the thoracic spine 05/07/2018-new T10 osteoporotic compression fracture. Previous compression fractures T11-12 and L1 status post vertebral augmentation. Mild spinal and mild to moderate foraminal canal stenosis. Edema T10 through L1 vertebral bodies in the pedicles fever postoperative. No shamika aggressive bone lesions. Massive right-sided pleural effusion right lower lobe consolidation favoring atelectasis over infiltrates. Smaller left- sided pleural effusion is noted. Visualized and Interpreted imaging results: Yes Visualized and Interpreted EKG results: Yes EKG additional interpertation: NSR 70s. No acute ST changes. Some nonspecific T-wave flattening in the inferior leads II and III. QTC 466. Assessment & Plan Assessment: 73-year-old female with multiple chronic medical problems who presents to the ED today from PCP for inpatient evaluation of multiple medical issues as noted below. #Intractable back pain due to multiple compression fractures - Patient followed by Dr. Watson with plans for conservative management and monitoring. He has a patient reports she had a followup appointment today with Dr. Wtason. #Right pleural effusion - patient without a previous evaluation of the right pleural effusion. She reports that this is present in 2017 postoperatively. Echocardiogram has been ordered. I also discussed with the patient and option for a thoracentesis further evaluation of the fluid directly however she is not and a hurry to select this option would rather start with echocardiogram. Spirometry. #Abdominal pain - patient with notable constipation on CT abdomen pelvis. She did have ultrasound of her abdomen outpatient which was reviewed noted on the polyp without evidence of obstruction or cholelithiasis. LFTs are within normal limits except for mildly elevated elevated alk-phos. Patient was previously recommended to have a HIDA scan however she had significant difficulties due to her back pain with transportation is from [place] [facility] for the study without use of narcotics. She is amenable to remain narcotic free for the required minimum 8 hr prior to the HIDA scan. Additionally discussed the patient abdominal pain could also be related to this increasing constipation due to her chronic opiate use. Bowel regimen has been ordered and recommended that patient start with suppository and/or enema as oral agents at home seemed to increase her abdominal distress. #Nausea vomiting - continue Zofran, Ativan p.r.n. #Chronic hypoxia - possibly related to patient's chronic pleural effusion versus MALI versus obesity hypoventilation. Continue supplemental oxygen 3 liters/minute. CTA was negative for evidence of PE or pneumonia. #Obstipation - bowel program has been ordered CT of note above. Chronic medical problems #Hypothyroidism - continue patient's levothyroxine when she is no longer NPO. #Adrenal insufficiency due to chronic steroid use - patient data was recommended to be on a taper and with follow-up is her on [employer] in in a few months however steroids were escalated in January and have since not been titrated. At this time will hold off on initiation and encourage patient follow up with her secretary to [employer]. Continue hydrocortisone. # obesity with BMI of 32.3. Patient has had limited mobility. PT OT if consultation and mobilize as tolerated. # gerd - resume patient's H2 liset as per formulary. # history of MSSA bacteremia and osteomyelitis continue patient's doxycycline # chronic lower extremity edema - stable at this time. Patient receiving IV fluid hydration. Monitor fluid status. FEN - IVF for gentle hydration. Electrolyte replacement p.r.n. NPO for pending HIDA scan PPX-holding anticoagulation pending HIDA scan and further discussion regarding pleural effusion. Cor status-limited. Patient does not want any compressions but she is okay with defibrillation, IV medicine and intubation if needed Disposition-patient admitted observation status at this time on the medical floor pending further studies and evaluation as noted above.
[2018-05-15] MEDS ORDERED: LORazepam 2 MG/ML INJ IVP PRN (02:14)
[2018-05-15] MEDS: LEVOTHYROXINE 112 MCG TAB PO SCH ×2 (04:41→09:16)
[2018-05-15 06:03] LABS: PLATELET COUNT 191 10^3/uL (150-400)
[2018-05-15 06:11] LABS: INR 1.16 (0.83-1.16)
[2018-05-15] MEDS ORDERED: FUROSEMIDE 40 MG TAB PO SCH (09:00)
[2018-05-15] MEDS: ONDANSETRON DISINTEGRATING 4 MG TAB PO PRN ×2 (09:13→17:29)
[2018-05-15] MEDS: CETIRIZINE 10 MG TAB PO SCH (09:15)
[2018-05-15] MEDS: SENNOSIDES/DOCUSATE SODIUM TAB PO SCH ×2 (09:15→21:12)
[2018-05-15] MEDS: LIDOCAINE 4%/MENTHOL 1% PATCH TD SCH (09:40)
--- NOTE | 2018-05-15 09:51 | ECHO ---
[email or web address] [address] Main: [phone] Fax: Transthoracic Echocardiogram Name: JOSHUA CARVALHO MR#: [id number] Study Date: 05/15/2018 Study Time: 07:55 AM Date of : 1945 Age: 73 year(s) Height: 152.4 cm (60 in.) Weight: 74.84 kg (165 lb.) BSA: 1.72 m2 Gender: Female Examination: Echo Indication: Cardiac: dyspnea, Pleural Effusion Image Quality: Adequate Contrast: Requested by: Seema Leonard BP: / Heart Rate: Rhythm: Indication: Cardiac: dyspnea, Pleural Effusion Procedure Staff Steward/Stewardess Third Class: Cherie Chaudhary RDCS Reading Physician: Mitch Odell MD Requesting Provider: Conclusions: Normal size left ventricle. Normal global systolic LV function. EF is 69 %. No regional wall motion abnormality. Normal diastolic LV function. Trivial tricuspid valve regurgitation. There are no significant valvular abnormalities. Measurements: Chambers Valvular Assessment AV/MV Valvular Assessment TV/PV Normal Normal Normal Name Value Range Name Value Range Name Value Range Ao Laura (2D): 2.8 cm (1.4 cm-2.6 AV Vmax: 1.51 m/s (1 m/s-1.7 PV Vmax: 1.14 m/s (0.6 m/s-0.9 cm) m/s) m/s) IVSd (2D): 1.1 cm (0.6 cm-1.1 AV maxP mmHg ( - ) PV PGmax: 5 mmHg ( - ) cm) AV meanP mmHg ( - ) LVDd (2D): 4.4 cm (3.9 cm-5.3 DEN (VTI): 3.0 cm ( - ) cm) MV E Vmax: 0.60 m/s ( - ) LVDs (2D): 3.2 cm (2.1 cm-4 MV A Vmax: 0.85 m/s ( - ) cm) MV E/A: 0.71 ( - ) LVPWd (2D): 1.0 cm ( - ) MV PHT: 0.072 s ( - ) LVOTd 1.9 cm 1.9 cm mm MVA (PHT): 3.1 s ( - ) LVEF (BP): 69 % (>=55 %) Continued Measurements: Chambers Valvular Assessment AV/MV Name Value Name Value LADs: 3.5 cm MV DecTime: 243 m/s LADs Lon.1 cm Patient: JOSHUA CARVALHO Study Date: 05/15/2018 Page 1 of 2 07:55 AM LA Area: 17.1 cm2 MV E' Septal: 0.06 m/s LA Volume: 44 ml MV E/E' Septal: 9.60 LA Volume Index: 25.6 ml/m2 MV E/E' Lateral: 5.60 Additional Vessels Name Value Ao Ascendin.0 cm Inferior Vena Cava: 1.4 cm Findings: Left Ventricle: Normal size left ventricle. No LV hypertrophy. Normal global systolic LV function. EF is 69 %. No regional wall motion abnormality. Normal diastolic LV function. Right Ventricle: Normal size right ventricle. Normal RV function. Left Atrium: The left atrium is normal in size. Right Atrium: The right atrium is normal in size. Mitral Valve: The mitral valve is normal in appearance and function. Trivial to mild mitral regurgitation. No mitral stenosis is present. Aortic Valve: The aortic valve is tri-leaflet. There is no significant aortic valve regurgitation. No aortic valve stenosis is present. Tricuspid Valve: The tricuspid valve is normal in appearance and function. Trivial tricuspid valve regurgitation. Pulmonic Valve: The pulmonic valve is normal in appearance and function. Trivial pulmonic valve regurgitation. Aorta: The aorta is normal. Normal size aortic root measuring 2.8 cm. Normal size ascending aorta measuring 3.0 cm. IVC: The IVC is normal sized. Pericardium: No pericardial effusion. There is a pleural effusion present. Exam Comments: Patient supine due to fractured back, and difficulty tolerating pressure in apical area. (No Signature Object) Patient: JOSHUA CARVALHO Study Date: 05/15/2018 Page 2 of 2 07:55 AM [id number]
[2018-05-15] MEDS: CALCITONIN 200 UNITS/SPRAY INH NS SCH (10:09)
[2018-05-15] MEDS ORDERED: SINCALIDE 5 MCG VIAL IV ONE (12:24)
--- NOTE | 2018-05-15 15:00 | HOSPPROG ---
Hospitalist Progress Note Assessment/Plan: #Right Pleural Effusion -Moderate per imaging -appears to not be symptomatic -Chronicity unclear, appears to have been present since at least December of 2016 -Thoracentesis, diagnostic plus cytology -no e/o of CHF per Echo #N/V -onset several months ago -etiology unclear -she has not abd pain including no RUQ abd pain or positive Mauro's sign -cont Antiemetics PRN -consider possible Opioid Related Gastroparesis #Chronic Pain syndrome #Chronic resp failure, currently at baseline 2-3 Liters #?GB disease -HIDA scan has been completed, results are pending -No elevated TB, AST, ALT -will obtain RUQ US. #Fecal Impaction: -she needs suppositories, will order -cont with stool softners #T10 compression fracture and hx of multiple back surgeries -conservative management #Adrenal Insufficiency -cont home steroids #Pedal Edema -Lasix PRN -She does not have CHF plan: per above. Change to inpatient. Discussed with PCP at length Subjective: no abdominal pain. no nausea. wants to eat. has not had a bm. not sob. occassional cough Objective: Vital Signs Temp Pulse Resp BP Pulse Ox 36.9 C 81 16 134/76 H 99 05/15/18 08:00 05/15/18 08:00 05/15/18 08:00 05/15/18 08:00 05/15/18 08:00 Laboratory Results 05/15/18 05:45 05/15/18 05:45 05/14/18 05/15/18 05/16/18 05:59 05:59 05:59 Intake Total 570 Output Total 100 300 Balance 470 -300 PT 15.0 SEC (12.0-15.0) 05/15/18 05:45 INR 1.16 (0.83-1.16) 05/15/18 05:45 - Time Spent With Patient Time Spent with Patient: greater than 35 minutes Time Spent with Patient: Greater than 35 minutes spent on this patients care, greater than 50% of time spent counseling, educating, and coordinating care regarding the above mentioned plan. - Physical Exam Constitutional: chronically ill appearing Eyes: PERRL, EOMI Ears, Nose, Mouth, Throat: moist mucous membranes Cardiovascular: regular rate and rhythym, No edema Respiratory: no respiratory distress, reduced air movement Gastrointestinal: normoactive bowel sounds, No tenderness, No ascites, No mauro 's sign, No guarding, No rebound, No distension Skin: warm, normal color Neurologic: AAOx3 Psychiatric: interacting appropriately, not anxious, not encephalopathic Lymph, Heme, Immunologic: No petechiae ICD10 Worksheet Patient Problems: Problems Problem Status Onset Bacteremia due to Staphylococcus aureus Acute Lumbar discitis Acute Vertebral osteomyelitis Acute
[2018-05-15] MEDS ORDERED: BISACODYL 10 MG SUPP PR ONE (15:06)
--- NOTE | 2018-05-15 15:34 | ASMTCMCOM ---
CM Note CM Note Notes: Pt admitted for n/v and chronic back pain as well as a pleural effusion. She lives in [place] but does have a caregiver who is with her 24/03. She has a complex medical history mostly due to significant spinal issues and requires help with her ADLs. She also uses 3L O2 at baseline. DC needs unclear, MALIK w/f PT/OT evals pending DC Plan: TBD Date Signed: 05/15/2018 03:25 PM Electronically Signed By:Yin Venegas RN
--- NOTE | 2018-05-15 15:37 | PDMN ---
Medical Necessity [facility] and [facility] Gastroenterology: 73y/ w/ multi medical issues - intractable back pain due to multi compression fx, right pleural effusion, abd pain w/ notable constipation on CT, nausea/vomiting and chronic hypoxia. HIDA scan pending, potential for thoracentesis if pt agreeable, pt cont on IV antiemetics. Suppositories ordered for fecal impaction as still no BM POs. On chronic steroids and PO antibx. Hx hypothyroid, adrenal insufficiency, obesity, MSSA bacteremia and osteomyelitis, chronic BLE edema. Change to IP status per MD order 05/15/18 @ 1502 as pt will require another MN for ongoing monitoring and treatment.
[2018-05-15 17:36] LABS: PLATELET COUNT 232 10^3/uL (150-400)
[2018-05-15] MEDS: PATCH REMOVAL 1 EA PATCH TD SCH (21:13)
[2018-05-16] MEDS: CETIRIZINE 10 MG TAB PO SCH (09:14)
[2018-05-16] MEDS: DOXYCYCLINE HYCLATE 100 MG CAP/TAB PO SCH ×2 (09:15→20:50)
[2018-05-16] MEDS: LEVOTHYROXINE 112 MCG TAB PO SCH (09:15)
[2018-05-16] MEDS: FAMOTIDINE 20 MG TAB PO SCH ×2 (09:16→20:50)
[2018-05-16] MEDS: HYDROCORTISONE 10 MG TAB PO SCH ×2 (10:20→20:50)
[2018-05-16] MEDS: LIDOCAINE 4%/MENTHOL 1% PATCH TD SCH (10:20)
[2018-05-16] MEDS: SENNOSIDES/DOCUSATE SODIUM TAB PO SCH ×2 (10:21→21:10)
[2018-05-16] MEDS: POTASSIUM CL 20 MEQ PKT PO SCH ×2 (10:21→21:10)
[2018-05-16] MEDS: CALCITONIN 200 UNITS/SPRAY INH NS SCH (10:22)
[2018-05-16] MEDS: ONDANSETRON DISINTEGRATING 4 MG TAB PO PRN (10:49)
--- NOTE | 2018-05-16 12:46 | HOSPPROG ---
Hospitalist Progress Note Assessment/Plan: 73 Yo female sent to the ER due to ongoing nausea and newly diagnosed right pleural effusion. Her nausea has been chronic for quite some time. Her PCP thought it may be GB dysfunction but studies including HIDA has been unremarkable and RUQ US is c/w GB polyps but otherwise unremarkable. She does not have any abd tenderness or c/ o abd pain. The GB polyps have been present since 2017. The Etiology of the polyps is unclear and she has not undergone further w/u or management. It is unclear if the polyps are contributing to her nausea. She does have a hx of GERD. She does not have a diagnosis of Gastroparesis and is not a known diabetic. She does have chronic narcotic use, but she reports her nausea predates the start of her pain med. She is steroids for adrenal insufficiency and she has failed weaning off them. Unclear how her steroid use is contributing to her nausea. She did present with constipation and fecal impaction and this appears resolving She has advanced osteoporosis and per her PCP she has refused treatment for this. She has several compression fractures. During w/u for her most recent compression fracture and MRI was obtained and this showed a large right sided pleural effusion. Upon my records it appears that it has been present since 2017. This has no had further w/u that I am aware of. She has a hx of chronic resp failure with chronic O2 needs at 2-3 L which she reports she has been on for several years. There have not been any changes to her O2 needs and she is not symptomatic from the effusion. A TTE was done and this is essentially unremarkable. Thoracentesis was performed on 05/15 with 800ml of fluid removed. W /U shows Exudative effusion and culture and cytology are pending. She denies constitutional symptoms. It is unclear what cancer screening she has had. Today she reports that her nausea is worse. She has not abdominal pain. She reports that she had an endoscopy at [place] many years ago. #Right Pleural Effusion -Moderate per imaging -appears to not be symptomatic -Chronicity unclear, appears to have been present since at least December of 2016 -s/p Thoracentesis, culture and cytology pending. appears Exudative -no e/o of CHF per Echo #N/V -onset several months to over a year. -etiology unclear -she has not abd pain including no RUQ abd pain or positive Mauro's sign -cont Antiemetics PRN -Etiology remains unclear: Opioid Related Gastroparesis, GERD, steroid induced , PUD, secondary to GB Polys, constipation, other, are all possibilities -We will obtain GI consultation #GB polyps #Chronic Pain syndrome #Chronic resp failure, currently at baseline 2-3 Liters #Fecal Impaction and constipation: -resolved #T10 compression fracture and hx of multiple back surgeries -conservative management #Adrenal Insufficiency -cont home steroids #Pedal Edema -Lasix PRN -She does not have CHF Plan: Keep inpatient will start some IVF to help with hydration change diet to Clears Obtain a GI consultation SCD's for now Subjective: she has nausea and is eating very little po. denies abd pain. has had multiple bm's. breathing is going well. Objective: Vital Signs Temp Pulse Resp BP Pulse Ox 36.9 C 75 22 H 122/64 H 99 05/16/18 12:00 05/16/18 12:00 05/16/18 12:00 05/16/18 12:00 05/16/18 12:00 Microbiology 05/15/18 16:23 Gram Stain - Final Pleural Fluid - Aspirate Laboratory Results 05/15/18 17:16 05/16/18 09:19 05/15/18 05/16/18 05/17/18 05:59 05:59 05:59 Intake Total 450 550 Output Total 100 400 200 Balance 350 150 -200 PT 15.0 SEC (12.0-15.0) 05/15/18 05:45 INR 1.16 (0.83-1.16) 05/15/18 05:45 - Physical Exam Constitutional: no apparent distress Eyes: PERRL Ears, Nose, Mouth, Throat: moist mucous membranes, hearing normal Cardiovascular: regular rate and rhythym, No edema Respiratory: no respiratory distress, no rales or rhonchi Gastrointestinal: normoactive bowel sounds, soft, non-tender abdomen Skin: warm Neurologic: AAOx3 Psychiatric: interacting appropriately, not anxious, not encephalopathic Lymph, Heme, Immunologic: No petechiae ICD10 Worksheet Patient Problems: Problems Problem Status Onset Bacteremia due to Staphylococcus aureus Acute Lumbar discitis Acute Vertebral osteomyelitis Acute
[2018-05-16] MEDS ORDERED: NS W/ 20 KCl/L 1,000 ML IV SCH (13:00)
[2018-05-16] MEDS ORDERED: ONDANSETRON DISINTEGRATING 4 MG TAB PO ONE (13:45)
--- NOTE | 2018-05-16 14:05 | PDCONSULT ---
Natural Resources Specialist Note: IR Progress Note: Morning chest radiograph showed similar to trivially enlarged pneumothorax. Given chronicity of effusion (since 2017), would favor more of an ex vacuo process. Vitals have remained stable and she is sat'ing up to 99% on 2.5L O2 ( usually on 2-3L at home). As she remains stable clinically and in no apparent distress, don't think a chest tube is indicated at this time. Please continue to monitor oxygenation. Sheri Ojeda MD IR
[2018-05-16] MEDS: MONTELUKAST SODIUM 10 MG TAB PO SCH (17:44)
--- NOTE | 2018-05-16 17:54 | GCON ---
REFERRING PHYSICIAN: Trevin Wilhelm MD CHIEF COMPLAINT: Nausea. HISTORY OF PRESENT ILLNESS: I have been asked to see this patient in consultation from Dr. Wilhelm for nausea. Patient has had a history of GI issues for the last year. She has frequent problems wit h nausea, vomiting, belching, abdominal distention, and bloating. She also has chronic constipation and takes chronic narcotics. She also has a history of adrenal insufficiency and is followed by endo crinology and has been on hydrocortisone supplementation. She has undergone a workup including a rig ht upper quadrant ultrasound that was normal. She has had a recent HIDA scan ejection fraction which was normal. She denies any retrosternal burning or reflux symptoms. She does report dysphagia to p ills, but denies dysphagia to food. Episodes of vomiting were especially with retching. She does re port early satiety. She does have chronic constipation due to chronic narcotics. She does have a pr ior history of collagenous colitis. She was admitted to the hospital with a right pleural effusion. She does have a history of vertebral fractures and osteoporosis. She has had prior low back surgery . She is currently undergoing evaluation of large right pleural effusion. Has undergone thoracentes is and finding of exudative fluid. Asked to see patient for further evaluation. PAST MEDICAL HISTORY: Remarkable for multiple thoracic compression fractures [id number], L1 chronic b ack pain. Chronic narcotic use, chronic constipation, chronic O2 dependence. Prior history of colla genous colitis, hypothyroidism with micronodular thyroid. Adrenal insufficiency, prior history of os teomyelitis, osteoporosis. History of hemorrhoids, chronic lower extremity edema, glaucoma, obstruct claude sleep apnea. SURGERIES: Have included tubal ligation, cataract surgery, multiple back surgeries. FAMILY HISTORY: Sister with CVA, hypertension, osteopenia, and history of thyroid disease. Otherwis e negative as it pertains to chief complaint. SOCIAL HISTORY: She is a nonsmoker and nondrinker. Patient is and lives at home, [facility]. MEDICATIONS: At home include calcitonin, doxycycline, Linnea, Lasix, hydrocortisone, potassium chlo ride, levothyroxine,Robaxin, Singulair, Zofran, ranitidine 150 mg b.i.d., and oxycodone IR. ALLERGIES: To cefazolin. REVIEW OF SYSTEMS: Negative 10 systems other than as mentioned in HPI. PHYSICAL EXAM: VITAL SIGNS: Heart rate is 74, respiratory rate 16, temperature is 36.8, blood press ure 128/70. GENERAL: Chronically ill woman lying in bed in no acute distress. HEENT: Normocephali c, atraumatic. EOMI. NECK: Supple. No cervical adenopathy. No thyromegaly. LUNGS: Clear. Decr eased breath sounds right lower lung base. CARDIAC: Normal S1, S2 without murmur. ABDOMEN: Soft, benign. No hepatosplenomegaly. Nontender. EXTREMITIES: With edema. No clubbing or cyanosis. SKI N: Warm, dry, intact. NEURO: Nonfocal. PSYCH: Alert and orientated x3. LABORATORY DATA: Hemoglobin 14.1, hematocrit 43.8, PT of 15.0, INR of 1.16, PTT of 32. Serum chemis tries: Serum sodium 137, potassium 3.2, chloride 104, CO2 24, creatinine 0.8. Blood sugar 75. Eve line phosphatase of 190 with an AST of 25, ALT of 33. Abdominal ultrasound: Gallbladder polyps, no evidence of cholelithiasis. Right pleural effusion. HIDA scan, normal with normal ejection fraction . CT scan of the abdomen questionable subtle inflammatory changes near the pancreatic uncinate proce ss. Fecal impaction of the rectum, right lower quadrant spigelian hernia without obstruction, modera te right pleural effusion. IMPRESSION: 73-year-old woman with multiple medical problems, chronic constipation, nausea and vomit ing. I suspect symptoms are related to her chronic constipation. Rule out ulcer disease gastritis. RECOMMENDATIONS: Proceed with diagnostic endoscopy, consider gastric emptying study. Abdominal x-ra y to evaluate for obstipation constipation. Would recommend initiating on MiraLAX 17 g twice a day. We will follow with you. /[id number]/MODL
[2018-05-16] MEDS: PATCH REMOVAL 1 EA PATCH TD SCH (21:10)
[2018-05-16] MEDS: ONDANSETRON 4 MG/2 ML VIAL IVP PRN (22:41)
[2018-05-17] MEDS: CALCITONIN 200 UNITS/SPRAY INH NS SCH (09:29)
[2018-05-17] MEDS ORDERED: LR 1,000 ML IV ONE (10:12)
--- NOTE | 2018-05-17 10:21 | PDPROPOC ---
Sedation Plan of Care Sedation Plan of Care: vital signs stable, mental status noted, patient educated of risks, benefits, alternatives, patient can tolerate sedation ASA Classification: ASA 3 Planned drugs: fentanyl, midazolam Mallampati Score: Class 2 Mallampati Reference Image: Patient passed 3-3-2 rule?: Yes
[2018-05-17] MEDS ORDERED: fentaNYL 100 MCG/2 ML INJ ONE (10:28)
[2018-05-17] MEDS ORDERED: MIDAZOLAM 2 MG/2 ML VIAL ONE (10:28)
--- NOTE | 2018-05-17 10:45 | GIREPORT ---
[facility] Surgical Services - Endoscopy Department Patient Name: JOSHUA CARVALHO Procedure Date: 05/17/2018 9:20 AM Patient Type: Inpatient Attending MD/ ER Physician: Bryant Koenig MD Procedure: Upper GI endoscopy Indications: Epigastric abdominal pain, Anorexia, Early satiety, Nausea with vomitin g Providers: Bryant Koenig MD Medicines: Fentanyl 100 micrograms IV, Midazolam 4 mg IV Complications: No immediate complications. Description of Procedure: After obtaining informed consent, the endoscope was passed under direct vision. Throughout the procedure, the patient's blood pressure, pulse, and oxygen saturations were monitored continuously. The Endoscope was intro duced through the mouth, and advanced to the second part of duodenum. The [facility] er GI endoscopy was accomplished without difficulty. The patient tolerated th e procedure well. Findings: LA Grade D (one or more mucosal breaks involving at least 75% of esopha geal circumference) esophagitis with no bleeding was found 36 cm from the incisors. Biopsies were taken with a cold forceps for histology. One benign-appearing, intrinsic stenosis was found 36 cm from the incis ors. This stenosis was moderately severe and. The stenosis was traversed. Diffuse moderate inflammation characterized by congestion (edema) and erythema was found in the gastric antrum. Biopsies were taken with a co ld forceps for histology. The examined duodenum was normal. Biopsies for histology were taken wit h a cold forceps for evaluation of celiac disease. Estimated Blood Loss: Estimated blood loss: none. Post Op Diagnosis: - LA Grade D reflux esophagitis. Biopsied. - Benign-appearing esophageal stenosis. - Chronic gastritis. Biopsied. - Normal examined duodenum. Biopsied. Recommendation: - Await pathology results. - Follow an antireflux regimen. - Use Protonix (pantoprazole) 40 mg IV BID. - Await pathology results. - Advance diet as tolerated. - Thank you for allowing me to participate in the care of your patient. Attending Participation: I personally performed the entire procedure. Bryant Koenig MD Bryant Koenig MD 05/17/2018 10:45:07 AM This report has been signed electronicallyBryant Koenig MD Number of Addenda: 0 Note Initiated On: 05/17/2018 9:20 AM [email or web address]
--- NOTE | 2018-05-17 11:53 | HOSPPROG ---
Hospitalist Progress Note Assessment/Plan: 73 Yo female sent to the ER due to ongoing nausea and newly diagnosed right pleural effusion. Her nausea has been chronic for quite some time. Her PCP thought it may be GB dysfunction but studies including HIDA has been unremarkable and RUQ US is c/w GB polyps but otherwise unremarkable. She does not have any abd tenderness or c/ o abd pain. The GB polyps have been present since 2017. The Etiology of the polyps is unclear and she has not undergone further w/u or management. It is unlikely but unclear if the polyps are contributing to her nausea. She does have a hx of GERD. She does not have a diagnosis of Gastroparesis and is not a known diabetic. She does have chronic narcotic use, but she reports her nausea predates the start of her pain med. She is steroids for adrenal insufficiency and she has failed weaning off them. Unclear how her steroid use is contributing to her nausea. She did present with constipation and fecal impaction and this appears resolving She has advanced osteoporosis and per her PCP she has refused treatment for this. She has several compression fractures. During w/u for her most recent compression fracture and MRI was obtained and this showed a large right sided pleural effusion. Upon my records it appears that it has been present since 2017. This has no had further w/u that I am aware of. She has a hx of chronic resp failure with chronic O2 needs at 2-3 L which she reports she has been on for several years. There have not been any changes to her O2 needs and she is not symptomatic from the effusion. A TTE was done and this is essentially unremarkable. Thoracentesis was performed on 05/15 with 800ml of fluid removed. W /U shows Exudative effusion and culture and cytology are pending. She denies constitutional symptoms. Today, she cont to have nausea. She is npo for an endoscopy #Right Pleural Effusion -Moderate per imaging -appears to not be symptomatic -Chronicity unclear, appears to have been present since at least December of 2016 -s/p Thoracentesis, culture and cytology pending. appears Exudative -no e/o of CHF per Echo #Post thoracentesis right small apical pneumothorax -not symptomatic -appears improving from CXR today. -conservative mgmt. #N/V -onset several months to over a year. -etiology unclear -she has not abd pain including no RUQ abd pain or positive Mauro's sign -cont Antiemetics PRN -Etiology remains unclear: Opioid Related Gastroparesis, GERD, steroid induced , PUD, secondary to GB Polys, constipation, other, are all possibilities -GI is following, endoscopy today -Consider treatment for Gastroparesis if endoscopy is negative #GERD. will start Protonix IV BID #GB polyps #Chronic Pain syndrome #Chronic resp failure, currently at baseline 2-3 Liters #Fecal Impaction and constipation: -resolved -will schedule Miralax #T10 compression fracture and hx of multiple back surgeries -conservative management #Adrenal Insufficiency -cont home steroids #Pedal Edema -Lasix PRN -She does not have CHF Plan: Keep inpatient endoscopy today await GI reccs Protonix Miralax serial chest xray SCD's for now Subjective: will have endoscopy today. still with nausea. no cp or sob. no cough Objective: Vital Signs Temp Pulse Resp BP Pulse Ox 36.8 C 76 12 143/95 H 98 05/17/18 11:39 05/17/18 11:39 05/17/18 11:39 05/17/18 11:39 05/17/18 11:39 Microbiology 05/15/18 16:23 Gram Stain - Final Pleural Fluid - Aspirate Laboratory Results 05/15/18 17:16 05/17/18 04:38 05/16/18 05/17/18 05/18/18 05:59 05:59 05:59 Intake Total 550 1338 Output Total 400 600 Balance 150 738 PT 15.0 SEC (12.0-15.0) 05/15/18 05:45 INR 1.16 (0.83-1.16) 05/15/18 05:45 - Physical Exam Constitutional: no apparent distress Eyes: PERRL Ears, Nose, Mouth, Throat: moist mucous membranes, hearing normal, ears appear normal Cardiovascular: regular rate and rhythym, No edema Respiratory: no respiratory distress, no rales or rhonchi Gastrointestinal: normoactive bowel sounds, No tenderness, No rebound, No distension Skin: warm Neurologic: AAOx3 Psychiatric: interacting appropriately, not anxious, not encephalopathic Lymph, Heme, Immunologic: No petechiae ICD10 Worksheet Patient Problems: Problems Problem Status Onset Bacteremia due to Staphylococcus aureus Acute Lumbar discitis Acute Vertebral osteomyelitis Acute
[2018-05-17] MEDS: PANTOPRAZOLE SODIUM 40 MG VIAL IVP SCH ×2 (12:19→21:02)
[2018-05-17] MEDS: POTASSIUM CL 20 MEQ PKT PO SCH ×2 (14:33→21:03)
[2018-05-17] MEDS: SENNOSIDES/DOCUSATE SODIUM TAB PO SCH ×2 (14:33→21:08)
[2018-05-17] MEDS: CETIRIZINE 10 MG TAB PO SCH (14:33)
[2018-05-17] MEDS: DOXYCYCLINE HYCLATE 100 MG CAP/TAB PO SCH ×2 (14:57→21:02)
[2018-05-17] MEDS: HYDROCORTISONE 10 MG TAB PO SCH ×2 (14:57→21:02)
[2018-05-17] MEDS: LIDOCAINE 4%/MENTHOL 1% PATCH TD SCH (17:03)
[2018-05-17] MEDS: FAMOTIDINE 20 MG TAB PO SCH (18:08)
[2018-05-17] MEDS: MONTELUKAST SODIUM 10 MG TAB PO SCH (18:29)
[2018-05-17] MEDS: PATCH REMOVAL 1 EA PATCH TD SCH (21:08)
[2018-05-18] MEDS: LEVOTHYROXINE 112 MCG TAB PO SCH (05:48)
--- NOTE | 2018-05-18 08:12 | CPEKG ---
Test Reason : OPEN Blood Pressure : / mmHG Vent. Rate : 074 BPM Atrial Rate : 074 BPM P-R Int : 146 ms QRS Dur : 101 ms QT Int : 400 ms P-R-T Axes : 051 032 020 degrees QTc Int : 444 ms Sinus rhythm Confirmed by Evangelista Weaver ([id number]) on 05/18/2018 8:12:31 AM Referred By: Confirmed By:Evangelista Weaver
[2018-05-18] MEDS: PANTOPRAZOLE SODIUM 40 MG VIAL IVP SCH (09:16)
[2018-05-18] MEDS: HYDROCORTISONE 10 MG TAB PO SCH ×2 (09:16→21:46)
[2018-05-18] MEDS: CETIRIZINE 10 MG TAB PO SCH (09:16)
[2018-05-18] MEDS: DOXYCYCLINE HYCLATE 100 MG CAP/TAB PO SCH ×2 (09:16→21:46)
[2018-05-18] MEDS: POTASSIUM CL 20 MEQ PKT PO SCH ×2 (09:17→21:47)
[2018-05-18] MEDS: LIDOCAINE 4% TP SCH (09:18)
[2018-05-18] MEDS: SENNOSIDES/DOCUSATE SODIUM TAB PO SCH ×3 (09:18→20:46)
[2018-05-18] MEDS: CALCITONIN 200 UNITS/SPRAY INH NS SCH (09:47)
--- NOTE | 2018-05-18 11:52 | HOSPPROG ---
Hospitalist Progress Note Assessment/Plan: #Right Pleural Effusion -Moderate per imaging -appears to not be symptomatic -Chronicity unclear, appears to have been present since at least December of 2016 -s/p Thoracentesis, culture and cytology pending. appears Exudative -no e/o of CHF per Echo #Post thoracentesis right small apical pneumothorax -not symptomatic -appears stable from CXR today. -conservative mgmt. #N/V -onset several months to over a year. -etiology unclear -she has not abd pain including no RUQ abd pain or positive Mauro's sign -cont Antiemetics PRN -GI is following, endoscopy done on 05/17 showing esophagitis, gastritis, mod- severe esophageal stenosis -Will discuss endoscopic findings with GI team for further recommendations -Consider treatment for Gastroparesis if endoscopy is negative #GERD. will continue Protonix IV BID, transition to PO today #GB polyps #Chronic Pain syndrome #Chronic resp failure, currently at baseline 2-3 Liters #Fecal Impaction and constipation: -resolved -will schedule Miralax #T10 compression fracture and hx of multiple back surgeries -conservative management #Adrenal Insufficiency -cont home steroids #Pedal Edema -Lasix PRN -She does not have CHF Dispo: Pending GI recommendations and clinical course Subjective: Patient reports no nausea or vomiting this AM Objective: Vital Signs Temp Pulse Resp BP Pulse Ox 36.8 C 78 23 H 142/68 H 100 05/18/18 11:26 05/18/18 11:26 05/18/18 11:26 05/18/18 11:26 05/18/18 11:26 Microbiology 05/15/18 16:23 Gram Stain - Final Pleural Fluid - Aspirate Laboratory Results 05/15/18 17:16 05/17/18 04:38 05/17/18 05/18/18 05/19/18 05:59 05:59 05:59 Intake Total 1338 100 Output Total 600 350 Balance 738 100 -350 PT 15.0 SEC (12.0-15.0) 05/15/18 05:45 INR 1.16 (0.83-1.16) 05/15/18 05:45 - Physical Exam Constitutional: no apparent distress Eyes: PERRL Ears, Nose, Mouth, Throat: moist mucous membranes Cardiovascular: regular rate and rhythym Respiratory: no respiratory distress Gastrointestinal: soft, non-tender abdomen Genitourinary: no bladder tenderness Skin: warm Musculoskeletal: no muscle tenderness Neurologic: AAOx3 Psychiatric: interacting appropriately ICD10 Worksheet Patient Problems: Problems Problem Status Onset Bacteremia due to Staphylococcus aureus Acute Lumbar discitis Acute Vertebral osteomyelitis Acute
--- NOTE | 2018-05-18 12:35 | SOAPPROG ---
SOAP Progress Note Assessment/Plan: Assessment: s/p EGD yesterday. Severe erosive esophagitis. Plan: 1. Await biopsies 2. Advance diet as tolerated. Patient advised to chew food slowly and carefully. 3. Repeat EGD in 8 weeks. 4. Continue on high dose PPI, can swithc to Pantoprazole 40 mg PO BID Will sign off, please call with further questions 05/18/18 12:31 Subjective: CC: Right pleural effusion, nausea and vomiting. EGD yesterday with severe erosive esophagitis and gastritis. s/p biopsy. Started on high does PPI Patient toerating soft diet today. Objective: Vital Signs Temp Pulse Resp BP Pulse Ox 36.8 C 78 23 H 142/68 H 100 05/18/18 11:26 05/18/18 11:26 05/18/18 11:26 05/18/18 11:26 05/18/18 11:26 Microbiology 05/15/18 16:23 Gram Stain - Final Pleural Fluid - Aspirate Laboratory Results 05/15/18 17:16 05/17/18 04:38 05/17/18 05/18/18 05/19/18 05:59 05:59 05:59 Intake Total 1338 100 Output Total 600 550 Balance 738 100 -550 PT 15.0 SEC (12.0-15.0) 05/15/18 05:45 INR 1.16 (0.83-1.16) 05/15/18 05:45 Generic Name Dose Route Start Last Admin Trade Name Brianq PRN Reason Stop Dose Admin Acetaminophen 650 mg 05/14/18 22:38 Tylenol PO 11/10/18 22:37 Q4HRS PRN Pain, Mild/Fever, Can Take PO Bisacodyl 10 mg 05/14/18 22:41 Dulcolax Rectal HI 11/10/18 22:40 DAILY PRN Constipation Protocol Calcitonin 200 units 05/15/18 09:00 05/18/18 09:47 Fortical NS 11/11/18 08:59 1 spr DAILY AMERICA Administration Cetirizine HCl 10 mg 05/15/18 09:00 05/18/18 09:16 Zyrtec PO 11/11/18 08:59 10 mg DAILY AMERICA Administration Cetirizine HCl 10 mg 05/18/18 23:11 05/17/18 23:18 Zyrtec PO 05/18/18 23:12 10 mg ONCE ONE Administration Doxycycline Hyclate 100 mg 05/15/18 00:15 05/18/18 09:16 Doxycycline Hyclate PO 06/14/18 00:14 100 mg BID AMERICA Administration Protocol Hydrocortisone 10 mg 05/15/18 00:15 05/18/18 09:16 Cortef PO 11/11/18 00:14 10 mg BID AMERICA Administration Lactulose 20 gm 05/14/18 22:41 05/15/18 18:32 Cephulac PO 11/10/18 22:40 20 gm TID PRN Administration Constipation Protocol Levothyroxine Sodium 112 mcg 05/15/18 06:00 05/18/18 05:48 Synthroid PO 11/11/18 05:59 112 mcg DAILY06 AMERICA Administration Lorazepam 0.5 mg 05/15/18 02:14 Ativan Injection IVP 11/11/18 02:13 Q6HRS PRN Spasms Methocarbamol 750 mg 05/15/18 00:01 Robaxin PO 11/11/18 08:59 TID PRN Spasms Miscellaneous Information 1 ea 05/15/18 21:00 05/17/18 21:08 Patch Removal TD 11/11/18 20:59 1 ea DAILY21 AMERICA Administration Miscellaneous Medication 2 ea 05/18/18 09:00 05/18/18 09:18 Non-Formulary TP 11/11/18 08:59 Not Given DAILY AMERICA Montelukast Sodium 10 mg 05/15/18 00:15 05/17/18 18:29 Singulair PO 11/11/18 00:14 10 mg DAILY@1800 AMERICA Administration Ondansetron HCl 4 mg 05/14/18 22:38 05/16/18 22:41 Zofran IVP 11/10/18 22:37 4 mg Q4HRS PRN Administration Nausea/Vomiting, Use 1st Ondansetron HCl 4 mg 05/15/18 00:01 05/16/18 10:49 Zofran Odt PO 11/11/18 00:00 4 mg Q6 PRN Administration Nausea/Vomiting Oxycodone HCl 5 - 10 mg 05/15/18 00:01 05/15/18 18:33 Oxycodone Ir PO 05/25/18 00:00 10 mg Q4 PRN Administration Breakthrough pain Pantoprazole Sodium 40 mg 05/18/18 21:00 Protonix PO 11/14/18 20:59 BID AMERICA Polyethylene Glycol 17 gm 05/14/18 22:41 Miralax PO 11/10/18 22:40 DAILY PRN Constipation, patient prefers Protocol Potassium Chloride 20 meq 05/15/18 00:30 05/18/18 09:17 Klor Packets PO 11/11/18 00:29 20 meq BID AMERICA Administration Senna/Docusate Sodium 1 - 2 tab 05/15/18 09:00 05/18/18 09:34 Senokot-S PO 11/11/18 08:59 2 tab BID AMERICA Administration Protocol Discontinued Medications Generic Name Dose Route Start Last Admin Trade Name Amanda PRN Reason Stop Dose Admin Bisacodyl 10 mg 05/15/18 15:06 05/15/18 16:18 Dulcolax Rectal HI 05/15/18 15:07 10 mg ONCE ONE Administration Famotidine 20 mg 05/15/18 00:15 05/17/18 18:08 Pepcid PO 11/11/18 00:14 Not Given BID AMERICA Fentanyl Confirm 05/17/18 10:28 Sublimaze Administered 05/17/18 10:29 Dose 200 mcg .ROUTE .STK-MED ONE Furosemide 40 mg 05/15/18 09:00 05/15/18 09:15 Lasix PO 11/11/18 08:59 Not Given DAILY AMERICA Hydromorphone HCl 1 mg 05/14/18 19:42 05/14/18 19:50 Dilaudid IVP 05/14/18 19:43 1 mg EDNOW ONE Administration Sodium Chloride 1,000 mls @ 75 mls/hr 05/14/18 22:45 05/14/18 23:59 Ns IV 11/10/18 22:44 1,000 mls CONT AMERICA Administration Potassium Chloride/Sodium Chloride 1,000 mls @ 75 mls/hr 05/16/18 13:00 05/16 14:00 Ns W/ 20 Kcl/L IV 05/17/18 02:19 1,000 mls CONT AMERICA Administration Lactated Ringer's 1,000 mls @ 0 mls/hr 05/17/18 10:12 05/17/18 14:34 Lr IV 05/17/18 10:13 Not Given ONCE ONE KVO Iopamidol Confirm 05/14/18 19:45 Isovue-300 Administered 05/14/18 19:46 Dose 100 ml .ROUTE .STK-MED ONE Iopamidol Confirm 05/14/18 20:07 Isovue-300 Administered 05/14/18 20:08 Dose 100 ml .ROUTE .STK-MED ONE Iopamidol Confirm 05/14/18 22:07 Isovue-370 Administered 05/14/18 22:08 Dose 100 ml IV .STK-MED ONE Midazolam HCl Confirm 05/17/18 10:28 Versed Administered 05/17/18 10:29 Dose 4 mg .ROUTE .STK-MED ONE Miscellaneous Medication 2 patch 05/15/18 09:00 05/17/18 17:03 Icy Hot Lidocaine/Menthol 4%/1% Patch TD 11/11/18 08:59 Not Given DAILY AMERICA Ondansetron HCl 4 mg 05/14/18 19:42 05/14/18 19:50 Zofran IVP 05/14/18 19:43 4 mg EDNOW ONE Administration Ondansetron HCl 4 mg 05/16/18 13:45 05/16/18 13:59 Zofran Odt PO 05/16/18 13:46 4 mg ONCE ONE Administration Pantoprazole Sodium 40 mg 05/17/18 11:00 05/18/18 09:16 Protonix IVP 11/13/18 10:59 40 mg BID AMERICA Administration Sincalide Confirm 05/15/18 12:24 Kinevac Administered 05/15/18 12:25 Dose 5 mcg IV .STK-MED ONE Physical Exam - Physical Exam General Appearance: alert, no apparent distress Respiratory: normal breath sounds Cardiac/Chest: regular rate, rhythm Abdomen: normal bowel sounds, non-tender, soft Skin: normal color, warm/dry Neuro/Psych: alert, normal mood/affect, oriented x 3 ICD10 Worksheet Patient Problems: Problems Problem Status Onset Bacteremia due to Staphylococcus aureus Acute Lumbar discitis Acute Vertebral osteomyelitis Acute
[2018-05-18] MEDS: MONTELUKAST SODIUM 10 MG TAB PO SCH (18:22)
[2018-05-18] MEDS: PANTOPRAZOLE SODIUM 40 MG TAB PO SCH (21:47)
[2018-05-18] MEDS: PATCH REMOVAL 1 EA PATCH TD SCH (21:49)
[2018-05-18] MEDS ORDERED: CETIRIZINE 10 MG TAB PO ONE (23:11)
[2018-05-19] MEDS: DOXYCYCLINE HYCLATE 100 MG CAP/TAB PO SCH (08:22)
[2018-05-19] MEDS: SENNOSIDES/DOCUSATE SODIUM TAB PO SCH (08:22)
[2018-05-19] MEDS: LEVOTHYROXINE 112 MCG TAB PO SCH (08:22)
[2018-05-19] MEDS: CALCITONIN 200 UNITS/SPRAY INH NS SCH (08:22)
[2018-05-19] MEDS: CETIRIZINE 10 MG TAB PO SCH (08:22)
[2018-05-19] MEDS: PANTOPRAZOLE SODIUM 40 MG TAB PO SCH (08:22)
[2018-05-19] MEDS: HYDROCORTISONE 10 MG TAB PO SCH (08:22)
[2018-05-19] MEDS: POTASSIUM CL 20 MEQ PKT PO SCH (08:23)
[2018-05-19] MEDS: LIDOCAINE 4% TP SCH (08:27)
[2018-05-19 09:18] VITALS: BP 138/72
--- NOTE | 2018-05-19 11:04 | PDDCSUM ---
Discharge Summary Discharge Summary: Date of Admission: 05/14/2018 Date of Discharge: 05/19/2018 Consults: GI, IR Procedures: Thoracentesis, EGD Followup: With GI in 8 weeks for repeat EGD, PCP, cytology is still pending on pleural fluid- f/u results Hospital Course Problem List: Esophagitis/Gastritis/Esophageal Stenosis - Patient with N/V for 1 year - GI consulted who performed EGD on 05/17 showing esophagitis, gastritis, mod- severe esophageal stenosis - PPI IV BID was switched to PO BID for discharge - GI to repeat EGD in 8 weeks - GI reported there was no intervention on esophageal stenosis due to inflammation, may intervene in 8 weeks - Patient to continue mechanical soft diet #Right Pleural Effusion -Moderate per imaging -appears to not be symptomatic -Chronicity unclear, appears to have been present since at least December of 2016 -s/p Thoracentesis, culture and cytology pending. appears Exudative -no e/o of CHF per Echo #Post thoracentesis right small apical pneumothorax -not symptomatic -appears stable from CXR -conservative mgmt. #Chronic resp failure, currently at baseline 2-3 Liters #Fecal Impaction and constipation: -resolved -will schedule Miralax #T10 compression fracture and hx of multiple back surgeries -conservative management #Adrenal Insufficiency -cont home steroids Time spent on discharge was >35 minutes with >50% of time spent on patient education and counseling
--- NOTE | 2018-05-19 11:26 | ASMTDCNOTE ---
Case Management Discharge Discharge Order Complete? Answers: Yes Patient to Obtain Answers: Independently Medications Transportation Arranged Answers: Family/Friends EMTALA Complete Answers: No Case Management Transport Answers: No Form Complete Faxed Final Orders Answers: No Agency/Facility Transfer Answers: No Report Printed & Faxed to Receiving Agency Family Notified Answers: No Discharge Comments Notes: Pts case discussed w/ Dr. Sams and MANI Ford. OT has cleared pt to d/c without any needs. CM met w/ pts caregiver Kaleb (P#: [phone]). Ketan will be bringing pt back home. Ketan reports that pt is scheduled to see her pcp this upcoming friday. Ketan reports that pt does not have any skilled HC needs at this time. CM available for changes. Plan: Independent w/ 24/03 caregiver Date Signed: 05/19/2018 11:26 AM Electronically Signed By:ALE Garay
--- NOTE | 2018-05-19 23:16 | CPEKG ---
Test Reason : OPEN Blood Pressure : / mmHG Vent. Rate : 071 BPM Atrial Rate : 071 BPM P-R Int : 141 ms QRS Dur : 101 ms QT Int : 428 ms P-R-T Axes : 035 010 027 degrees QTc Int : 466 ms Sinus rhythm Confirmed by Laurita Hale ([id number]) on 05/19/2018 11:15:56 PM Referred By: Confirmed By:Laurita Hale
== END 2018-05-19 12:32 | disposition home or self-care (01) | DRG 392 ==
LOC: EDUNIT# → F3E 22:40 → OBSVTOIN 22:41
PROVIDERS: ADMIT Internal Medicine; ATTEND Internal Medicine
PROC: 0W993ZX Drainage of Right Pleural Cavity, Percutaneous Approach, Diagnostic (ICD-10-PCS; 2018-05-15)
PROC: 0DB58ZX Excision of Esophagus, Via Natural or Artificial Opening Endoscopic, Diagnostic (ICD-10-PCS; principal; 2018-05-17 10:30)
PROC: 0DB98ZX Excision of Duodenum, Via Natural or Artificial Opening Endoscopic, Diagnostic (ICD-10-PCS; principal; 2018-05-17 10:30)
PROC: 0DB68ZX Excision of Stomach, Via Natural or Artificial Opening Endoscopic, Diagnostic (ICD-10-PCS; principal; 2018-05-17 10:30)
DX: K20.8 Other esophagitis (principal); K29.70 Gastritis, unspecified, without bleeding; J90 Pleural effusion, not elsewhere classified; G89.29 Other chronic pain; M80.08XD Age-related osteoporosis with current pathological fracture, vertebra(e), subsequent encounter for fracture with routine healing; E03.9 Hypothyroidism, unspecified; E27.40 Unspecified adrenocortical insufficiency; G47.33 Obstructive sleep apnea (adult) (pediatric); J96.10 Chronic respiratory failure, unspecified whether with hypoxia or hypercapnia; K82.4 Cholesterolosis of gallbladder; K59.00 Constipation, unspecified; Z86.14 Personal history of Methicillin resistant Staphylococcus aureus infection; Z99.81 Dependence on supplemental oxygen
CPT/HCPCS: 84480-90; 84484-PO; 85060-90; 88184-90; 88185-91; 96374; 97165-GO; 97530-GO; 97535-GO; A9537; G0378; G8987-GO-CK; G8988-GO-CJ; J1170; J2250; J2405; J2805; J3010; Q9967

== ENCOUNTER → 2018-06-12 | Outpatient (CLI) | payer OTHER, MEDICARE | LOC: FIMAGING 10:05 | PROVIDERS: ATTEND Internal Medicine Gastroenterology | DX: K22.8 Other specified diseases of esophagus (principal) ==

== ENCOUNTER 2018-07-07 14:36 | Inpatient (IN) | payer OTHER, MEDICARE ==
--- NOTE | 2018-07-07 19:08 | GHP ---
DATE OF ADMISSION: 07/07/2018 CHIEF COMPLAINT: Weakness, unable to swallow. HISTORY OF PRESENT ILLNESS: This is a 73-year-old female, who was last hospitalized at [facility] on 05/19/2018, where she was treated and ultimately discharged with the diagnosis of esop hagitis with esophageal stenosis, as well as having a right pleural effusion, complicated by apical p neumothorax post thoracentesis. The patient resides up in [place] and was directly admitted to [facility] today afte r she was noted having declining health. She has been having a hard time getting in enough calories, per her report. She vomited yesterday and has not been able to eat much since. She feels very weak and is unable to function at home. The patient shared with me that she had been admitted and treated at [facility], June 22 through June 24, where, again, she was found to have a right pneumothorax with recurrent r ight pleural effusion. At that time, per record, she was noted to have an elevated CA-125. She had an echo done in that hospital stay that showed a normal ejection fraction. Her pleural effusion was reportedly negative for cancer cells, except for lymphocytes that appeared to be reactive. PAST MEDICAL HISTORY: 1. Multiple thoracic spine compression fractures. 2. Chronic back pain. 3. Chronic narcotic use. 4. Chronic constipation. 5. Chronic abdominal pain with nausea and vomiting. 6. Right-sided pleural effusion. 7. Chronic O2 dependence. 8. Collagenous colitis. 9. Hypothyroidism, most recently hyperthyroid due to overmedication. 10. Secondary adrenal insufficiency. 11. History of MSSA bacteremia in vertebral osteomyelitis. 12. Osteoporosis. 13. Obesity. 14. Hemorrhoids. 15. Vitamin D deficiency. 16. Osteoarthritis. 17. Chronic lower extremity edema. 18. GERD. 19. Glaucoma. 20. MALI, requiring BPPV. PAST SURGICAL HISTORY: 1. Bilateral cataract extraction with lens placement. 2. Lumbar spine decompression and stabilization. 3. . 4. Tonsilloadenoidectomy. 5. Kyphoplasty, 03/20/2018, of T12 through L1, and T11 on 04/20/2018. 6. Chest tube placement for right pneumothorax. FAMILY HISTORY: Reviewed and noncontributory. SOCIAL HISTORY: Denies any alcohol, tobacco, or illicit drug use. She is and lives in [place] with a caregiver. REVIEW OF SYSTEMS: Comprehensive 10-point review of systems was done and is negative, except for as mentioned in HPI. PHYSICAL EXAM: VITAL SIGNS: Blood pressure 108/56, pulse of 65, respiratory rate 16, O2 saturation 95% on room air. Temperature afebrile. GENERAL: Ill-appearing, in no acute distress. HEAD: Normo cephalic, atraumatic. EYES: PERRLA. Sclerae anicteric. MOUTH: Moist mucous membranes. NECK: Marley pple. No lymphadenopathy. CARDIOVASCULAR: S1, S2. There is bilateral lower extremity edema. PULM ONARY: Diminished breath sounds bilateral bases. No respiratory distress. ABDOMEN: Soft, nontende r, nondistended. No guarding or rebound tenderness. Normoactive bowel sounds. EXTREMITIES: No clu bbing or cyanosis. NEURO: Cranial nerves 2-12 grossly intact. No focal motor or sensory deficits. SKIN: Clear. No rashes. DIAGNOSTICS: Outside labs done in [place] were reviewed from 07/06/2018: Sodium 135, potassium 4 .1, chloride 103, CO2 of 25, BUN 32, creatinine 1.1, glucose 134. Magnesium was low at 1.3 on 2017. Phosphorus was also low at that time of 2.3. TSH was suppressed at 0.05. ASSESSMENT: This is a 73-year-old female presenting with: 1. Weakness and failure to thrive, likely multifactorial due to below. 2. History of esophagitis/esophageal stenosis/possible achalasia. PLAN: 1. I discussed the case Dr. Audra Sibley, from [facility], who will see the patient in the [facility] and evaluate next steps, which may include repeat endoscopy. 2. Recently reported hypokalemia, hypomagnesemia, and hypophosphatemia. This is also likely multifa ctorial in the setting of diuretic use. We will replace electrolytes per protocol. 3. History of hypothyroidism with suppressed TSH. The patient's recent dose of thyroid replacement has been on hold. She will need further outpatient of her thyroid studies. 4. Recurrent right pleural effusion of unclear etiology. Once again, the patient had a repeat thora centesis in admission at the end of June at [facility]. I am concerned that this cou ld be a malignant pleural effusion, despite reported negative cytology. We will repeat a chest x-ray , to followup effusion and go from there. 5. Chronic respiratory failure and obstructive sleep apnea. Continue BPPV at night and supplemental oxygen. 6. History of chronic back pain and multiple back surgeries. Continue home medications. 7. History of adrenal insufficiency. Continue on dose of steroids. 8. The patient requests to be DNR status. /[id number]/MODL
[2018-07-07] MEDS ORDERED: PROTOCOL POTASSIUM 1 DOSE MISC PRN (21:11)
[2018-07-07] MEDS ORDERED: PROTOCOL MAGNESIUM 1 DOSE IV PRN (21:11)
[2018-07-07] MEDS ORDERED: PROTOCOL K PHOSPHATE 1 DOSE IV PRN (21:11)
[2018-07-07] MEDS ORDERED: DOCUSATE SODIUM 100 MG CAP PO PRN (21:12)
[2018-07-07] MEDS ORDERED: ONDANSETRON DISINTEGRATING 4 MG TAB PO PRN (21:28)
[2018-07-07] MEDS: PANTOPRAZOLE SODIUM 40 MG TAB PO SCH (22:47)
[2018-07-07] MEDS: HYDROCORTISONE 10 MG TAB PO SCH (22:48)
[2018-07-07] MEDS: DOXYCYCLINE HYCLATE 100 MG CAP/TAB PO SCH (22:48)
[2018-07-07] MEDS ORDERED: diphenhydrAMINE 25 MG CAP PO PRN (23:28)
[2018-07-08] MEDS: D5W NS W/ 20 KCl/L 1,000 ML IV SCH ×2 (00:24→16:57)
[2018-07-08 04:38] LABS: PLATELET COUNT 179 10^3/uL (150-400)
[2018-07-08] MEDS ORDERED: POTASSIUM CL 10 MEQ TAB PO ONE ×2 (07:35→18:56)
[2018-07-08] MEDS ORDERED: MAGNESIUM SULF 2 GM/WATER 50 ML IV ONE ×2 (07:37→14:53)
[2018-07-08] MEDS ORDERED: PROMETHAZINE HCL 25 MG TAB PO PRN (08:00)
[2018-07-08] MEDS: DOXYCYCLINE HYCLATE 100 MG CAP/TAB PO SCH ×2 (08:06→20:38)
[2018-07-08] MEDS: HYDROCORTISONE 10 MG TAB PO SCH ×2 (08:06→20:37)
[2018-07-08] MEDS: PANTOPRAZOLE SODIUM 40 MG TAB PO SCH ×2 (08:06→20:38)
[2018-07-08] MEDS: LIDOCAINE 4%/MENTHOL 1% PATCH TD SCH ×2 (08:07→10:15)
[2018-07-08] MEDS ORDERED: Herbals/Supplements -Info Only PO SCH (09:00)
[2018-07-08] MEDS ORDERED: SPIRONOLACTONE 25 MG TAB PO SCH (09:00)
[2018-07-08] MEDS: POTASSIUM Cl (KCl) 100 ML IV SCH ×3 (09:58→13:24)
--- NOTE | 2018-07-08 10:10 | HOSPPROG ---
Hospitalist Progress Note Assessment/Plan: 73 yo F w recurrent pleural effusion, dysphagia, esophageal stricture pleural effusion: remains unexplained will review echo w cardiology to eval for diastolic dysfunction RUQ ultrasound to eval for cirrhosis had hepA in 70's elevated lft's in past probably a candidate for VATS if above is neg. i discussed w them unclear how esophageal stricture is related, unless malignancy but bx and cytology neg previosly PE ruled out at [facility] not empyema dysphagia: h/o stricture will likely be rescoped today has weight loss hypomag: poor po plus diuretics hold aldactone mag protocol h/o spinal osteo: suppressive doxy proph: lmwh dispo: inpt Subjective: case d/w dr harper. cxr w minimal R pleural effusion (interp by me) Objective: Vital Signs Temp Pulse Resp BP Pulse Ox 36.7 C 69 16 109/66 97 07/08/18 07:58 07/08/18 07:58 07/08/18 07:58 07/08/18 07:58 07/08/18 07:58 Laboratory Results 07/08/18 04:14 07/08/18 04:14 07/07/18 07/08/18 07/09/18 05:59 05:59 05:59 Intake Total 0 Balance 0 - Physical Exam Constitutional: no apparent distress, appears nourished Eyes: PERRL, anicteric sclera Ears, Nose, Mouth, Throat: moist mucous membranes, hearing normal Cardiovascular: regular rate and rhythym, no murmur, rub, or gallop, edema Respiratory: no respiratory distress, no rales or rhonchi Gastrointestinal: normoactive bowel sounds, soft, non-tender abdomen Genitourinary: no bladder fullness, No crabtree in urethra Skin: warm, normal color Musculoskeletal: full muscle strength, no muscle tenderness Neurologic: AAOx3 Psychiatric: interacting appropriately Lymph, Heme, Immunologic: no cervical LAD ICD10 Worksheet Patient Problems: Problems Problem Status Onset Abdominal pain Acute Bacteremia due to Staphylococcus aureus Acute Lumbar discitis Acute Nausea and vomiting Acute Vertebral osteomyelitis Acute
--- NOTE | 2018-07-08 10:15 | GCON ---
INPATIENT CONSULTATION REFERRING PHYSICIAN: Dandre Jaime DO REASON FOR CONSULTATION: Dysphagia, nausea, vomiting. CHIEF COMPLAINT: Dysphagia, nausea, vomiting. HISTORY OF PRESENT ILLNESS: Briefly, the patient is a pleasant 73-year-old female who was admitted t [facility] on July 07, 2018, for the evaluation of failure to thrive and difficulty with oral intake. She reports she has had a several month decline. She reports perhaps 4-6 months of graduall y worsening difficulty with meal times. She reports a significant amount of nausea, regurgitation, a nd vomiting. In this setting, she has had a difficult time maintaining her oral intake, hydration, e lectrolyte balance, and been unable to tolerate her medications regularly. She has had a recent work up at our hospital as well as other hospitals that has been concerning for the possibility of esophag eal dysmotility. There has also been an as yet undiagnosed pleural effusion. She had upper endoscopy in May of this year, at that time she had severe esophagitis. She was treated with proton pump inhibitor, but reports that she has had little if any overall improvement since that time, and perhaps has had some worsening. She reports she has had symptoms of dysphagia for a long time. She describes having pill dysphagia f or many years. She has had solid food dysphagia on and off for many years as well. It has only been in the last several months that she has had dysphagia and difficulty swallowing with most of her ora l intake including pills. In this setting, she reports she has been losing weight. PAST MEDICAL HISTORY: Includes compression fractures, chronic pain, chronic narcotic use, constipati on, abdominal pain, right-sided pleural effusion, chronic oxygen dependence, history of collagenous c olitis, hypothyroidism secondary adrenal insufficiency due to chronic steroid use, bacteremia from os teomyelitis, osteoporosis, obesity, vitamin D deficiency, osteoarthritis, chronic lower extremity neftali ma, heartburn, sleep apnea. PAST SURGICAL HISTORY: Includes cataracts surgery, spinal decompression surgery, C section, kyphopla sty, pneumothorax, management with chest tube. FAMILY HISTORY: Negative for colon cancer, colon polyps. SOCIAL HISTORY: She does not drink, smoke, or use drugs. She is and lives in [place]. REVIEW OF SYSTEMS: A comprehensive 10-point review was undertaken with the patient. The pertinent p ositives and negatives are detailed in history of present illness. PHYSICAL EXAM: GENERAL: This is an obese, well-developed female in no apparent distress. HEENT: H er pupils are equal, round, reactive to light and accommodation. Her sclerae are nonicteric. Her or opharynx is clear. NECK: Supple without lymphadenopathy. HEART: Regular without murmur. ABDOMEN: Soft, nondistended, with normoactive bowel sounds. EXTREMITIES: Free of cyanosis, clubbing, and e gregoria. NEURO: Grossly nonfocal. SKIN: Warm and dry. PSYCHIATRIC: Reveals normal mood and affect. DATA REVIEWED: Laboratory testing reveals a white count of 5.06, hemoglobin of 10.6, hematocrit of 3 1.5, platelet count of 179. Sodium of 136, potassium of 3.3, chloride of 101, bicarb of 34, BUN of 3 1, creatinine of 1.0, albumin of 1.5, magnesium of 1.4. Chest x-ray reveals recurrent right pleural effusion with prominence in the right hilum. IMPRESSION AND RECOMMENDATIONS: The patient has had gradually progressive failure to thrive. A stro ng component of her failure has included difficulty with meal times. She describes regurgitation, na usea, and vomiting. It is not clear to me that the entire story of her failure to thrive is based on her swallowing diffi culties. She has had a recurrent pleural effusion without explanation. In addition, she has some fu llness in the hilum on her chest x-ray. It is possible that her pleural effusion is related to hypoa lbuminemia from poor nutrition, but additional cardiopulmonary workup may be indicated. The patient is awaiting additional swallowing evaluation with esophageal manometry. This is a test t hat is not offered at [facility], but she is scheduled for this to occur at [facility]. This would be useful to identify diseases such as achalasia, which could lead to a presentation s imilar to her's. Her recent barium study did also show esophageal narrowing. She has yet to have an esophageal dilati on, empirically. Standard esophageal dilation, of note, would be ineffective for the management of a chalasia, but could be effective for other types of esophageal strictures or narrowings. Given her recurrent symptoms, a desire to get additional information and perhaps provide some additio nal therapeutic benefit, I recommend she undergo a repeat upper endoscopy, perhaps with dilation and biopsy of the esophagus. She will be at increased risk of conscious sedation due to her oxygen requi rements, sleep apnea, obesity, poor nutritional status, etc., but I do not think those risks outweigh the potential benefits. We will have our anesthesia colleagues help with her sedation as well. /[id number]/MODL
--- NOTE | 2018-07-08 10:23 | PDMN ---
Medical Necessity Medical necessity: Pt meets IP criteria per and MCG M-550; est los > 2 MN for ongoing tx and management of esophageal stricture resulting in dysphagia and electrolyte abnormalities as well as recurrent pleural effusion.
[2018-07-08] MEDS ORDERED: LR 1,000 ML IV ONE (11:17)
--- NOTE | 2018-07-08 11:17 | PDANEPAE ---
ANE Past Medical History - Cardiovascular History Hx Hypertension: No Hx Arrhythmias: No Hx Chest Pain: No Hx Coronary Artery / Peripheral Vascular Disease: No Hx CHF / Valvular Disease: No Hx Palpitations: No - Pulmonary History Hx COPD: No Hx Asthma/Reactive Airway Disease: No Hx Recent Upper Respiratory Infection: No Hx Oxygen in Use at Home: Yes O2 in Use at Home (L/minute): 3 Hx Sleep Apnea: No Sleep Apnea Screening Result - Last Documented: Negative Pulmonary History Comment: SHALLOW BREATHING/HYPOXIA - Neurologic History Hx Cerebrovascular Accident: No Hx Seizures: No Hx Dementia: No Neurologic History Comment: hx of spinal fusion 2017. recent kyphoplasty . DDD. COMPRESSION FX - Endocrine History Hx Diabetes: No Endocrine History Comment: hypothyroidism - Renal History Hx Renal Disorders: Yes Renal History Comment: ADRENAL FAILURE - Liver History Hx Hepatic Disorders: No - Neurological & Psychiatric Hx Hx Neurological and Psychiatric Disorders: Yes Neurological / Psychiatric History Comment: PTSD. SITUATIONAL ANXIETY - Cancer History Hx Cancer: No - Congenital Disorder History Hx Congenital Disorders: No - GI History Hx Gastrointestinal Disorders: Yes Gastrointestinal History Comment: REFLUX - Other Health History Other Health History: BRUISES EASILY. OSTEOPOROSIS. very sensitive skin - Chronic Pain History Chronic Pain: Yes (LUMBAR REGION) - Surgical History Prior Surgeries: 03/23/18 L1 kyphoplasty with Walter. 01/08/17 L3-5 spinal fusion with Leo. DOMENICA CATARACTS. TONSILLECTOMY. TUBAL LIGATION ANE Review of Systems Review of Systems: ANE Patient History - Allergies Allergies/Adverse Reactions: cefazolin Allergy (Verified 05/14/18 19:26) CHEMICAL HEPATITIS gluten Allergy (Verified 05/14/18 19:26) ABD CRAMPING Milk Containing Products [dairy] Allergy (Verified 05/14/18 19:26) ABD CRAMPING prochlorperazine [From Compazine] Allergy (Verified 05/14/18 19:26) GI ISSUES soy Allergy (Verified 05/14/18 19:26) GI ISSUES - Home Medications Home Medications: Calcitonin [Fortical (*)] 200 units NASAL DAILY 05/14/18 [Last Taken 07/07/18] Doxycycline Hyclate [Vibramycin 100 MG (*)] 100 mg PO BID 05/14/18 [Last Taken 07/07/18 09:00] Herbals/Supplements -Info Only 1 ea PO DAILY 05/14/18 [Last Taken Unknown] Hydrocortisone [Cortef 10 mg (*)] 10 mg PO HS 05/14/18 [Last Taken 07/06/18] K Effervescent 25 meq PO BID 05/14/18 [Last Taken 07/07/18 09:00] Lidocaine 4%/Menthol 1% [Icy Hot Lidocaine/Menthol 4%/1% Patch (*)] 2 patch TD DAILY 05/14/18 [Last Taken 07/06/18] Ondansetron HCl [Zofran] 4 mg PO Q6 PRN 05/14/18 [Last Taken Unknown] Docusate Sodium [Colace 100 MG (*)] 100 - 300 mg PO BID PRN 07/07/18 [Last Taken 07/06/18] Hydrocortisone [Cortef 10 mg (*)] 20 mg PO DAILY 07/07/18 [Last Taken 07/07/18] Promethazine HCl [Phenergan 12.5mg tab] 25 mg PO TID PRN 07/07/18 [Last Taken Unknown] Spironolactone [Aldactone 25 MG (*)] 25 mg PO DAILY 07/07/18 [Last Taken ] Escitalopram Oxalate [Lexapro] 10 mg PO DAILY 07/08/18 [Last Taken Unknown] - NPO status NPO Since - Liquids (Date): 07/07/18 NPO Since - Liquids (Time): 23:55 NPO Since - Solids (Date): 07/07/18 NPO Since - Solids (Time): 23:55 - Smoking Hx Smoking Status: Never smoked - Family Anes Hx Family Hx Anesthesia Complications: none ANE Labs/Vital Signs - Labs Result Diagrams: 07/08/18 04:14 07/08/18 04:14 - Vital Signs Blood Pressure: 109/66 Heart Rate: 69 Respiratory Rate: 16 O2 Sat (%): 97 Height: 149.86 cm Weight: 72.376 kg ANE Physical Exam - Airway Neck exam: decreased ROM Mallampati Score: Class 1 Mouth exam: normal dental/mouth exam - Pulmonary Pulmonary: reduced air movement - Cardiovascular Cardiovascular: regular rate and rhythym - ASA Status ASA Status: III ANE Anesthesia Plan Anesthesia Plan: general endotracheal anesthesia, GA with mask
[2018-07-08] MEDS ORDERED: LIDOCAINE 2% 5 ML SDV ONE (11:22)
[2018-07-08] MEDS ORDERED: PROPOFOL 200 MG/20 ML VIAL ONE (11:23)
--- NOTE | 2018-07-08 11:42 | GIREPORT ---
[facility] Surgical Services - Endoscopy Department Patient Name: JOSHUA CARVALHO Procedure Date: 07/08/2018 11:25 AM Patient Type: Inpatient Attending MD/ ER Physician: Audra Sibley MD Procedure: Upper GI endoscopy Indications: Epigastric abdominal pain, Indigestion, Dysphagia, Heartburn, Failure t o thrive, Nausea with vomiting, Weight loss Providers: Audra Sibley MD Medicines: Sedation Required Anesthesia Staff Assistance Complications: No immediate complications. Description of Procedure: After obtaining informed consent, the endoscope was passed under direct vision. Throughout the procedure, the patient's blood pressure, pulse, and oxygen saturations were monitored continuously. The Endoscope was intro duced through the mouth, and advanced to the second part of duodenum. The [facility] er GI endoscopy was accomplished without difficulty. The patient tolerated th e procedure well. Findings: The examined esophagus was normal. Biopsies were taken with a cold forc eps for histology. A guidewire was placed and the scope was withdrawn. Dila tion was performed with a Savary dilator with no resistance at 54 Fr. Diffuse mild inflammation characterized by congestion (edema) and eryth gilmer was found in the entire examined stomach. Biopsies were taken with a co ld forceps for histology. The examined duodenum was normal. Biopsies for histology were taken wit h a cold forceps for evaluation of celiac disease. Estimated Blood Loss: Estimated blood loss: none. Post Op Diagnosis: - Normal esophagus. Biopsied. Dilated. - Gastritis. Biopsied. - Normal examined duodenum. Biopsied. Recommendation: - Written discharge instructions were provided to the patient. - The signs and symptoms of potential delayed complications were discus sed with the patient. - Patient has a contact number available for emergencies. - Return to normal activities tomorrow. - Resume previous diet. - Perform routine esophageal manometry. - Advance diet as tolerated - advance as tolerated to resume previous d iet. - Await pathology results. - No clear explanation for difficulty swallowing. Esopahgus did not jovanna ear to be particularly dilated, nor did GE junction seem to be particularly hypertonic. - Continue supportive care. Hope to obtain outpatient esopahgeal manome try to further work-up. Attending Participation: I personally performed the entire procedure. Audra Sibley MD Audra Sibley MD 07/08/2018 11:42:06 AM This report has been signed electronicallyDaus Toñito MD Number of Addenda: 0 Note Initiated On: 07/08/2018 11:25 AM [email or web address]
--- NOTE | 2018-07-08 11:45 | SUROPNOTE ---
[facility] Operative Report - Surgery BRIEF EGD NOTE Indication: dysphagia Medication: per anesthesia Complications: none acutely Findings: 1. normal esophagus - bx'd and dilated with 54 FR Savary dilator 2. mild gastritis - bx'd 3. normal duodenum - bx'd IMPRESSION/RECS: 1. Dysphagia, Nausea, Vomiting - no clear explanation on EGD - bx's pending - continue supportive care - ok to advance diet - continue PPI - continue non-GI w/u - hope clinical status improves enough to proceed with outpatient esophageal manometry - doubt that esophageal process explains entire clinical presentation - will follow, call with questions
[2018-07-08] MEDS ORDERED: NALOXONE HCL 0.4 MG/ML INJ IVP PRN (11:54)
[2018-07-08] MEDS ORDERED: ONDANSETRON 4 MG/2 ML VIAL IVP PRN (11:54)
[2018-07-08] MEDS ORDERED: fentaNYL 100 MCG/2 ML INJ IVP PRN (11:54)
--- NOTE | 2018-07-08 11:54 | POSTANESTH ---
Post Anesthetic Evaluation Cardiovascular Status: Similar to Pre-Op Cond Respiratory Status: Similar to Pre-op Cond. Level of Consciousness/Mental Status: Can Participate in Eval Pain Control: Adequate, Prn Tx Ordered Nausea/Vomiting Control: Adequate, Prn Tx Ordered Complications Possibly Related to Anesthesia: None Noted
[2018-07-08] MEDS: ESCITALOPRAM OXALATE 10 MG TAB PO SCH (13:29)
[2018-07-08] MEDS: ENOXAPARIN 40 MG/0.4 ML SYR SC SCH (13:29)
[2018-07-08] MEDS: CALCITONIN 200 UNITS/SPRAY INH EACHNARE SCH (13:30)
[2018-07-08] MEDS: K EFFERVESCENT PO SCH ×2 (13:35→21:13)
--- NOTE | 2018-07-08 14:28 | ASMTCMCOM ---
CM Note CM Note Notes: Patient plan of care reviewed in rounds. She is a 73 year old DNR patient from [place] who has extensive history and has been chronically ill with pleural effusions, esophagitis, weight loss and FTT. She underwent upper gi today with biopsies. She is current with [facility]. They will need orders faxed upon dc if patient returns home. Plan of care unclear at present time. Plan: TBD Date Signed: 07/08/2018 02:27 PM Electronically Signed By:Ana Laura Valdivia RN
[2018-07-08] MEDS ORDERED: POTASSIUM CL 20 MEQ/15 ML UDCUP PO ONE (19:15)
[2018-07-08] MEDS: PATCH REMOVAL 1 EA PATCH TD SCH (21:13)
[2018-07-09] MEDS: D5W NS W/ 20 KCl/L 1,000 ML IV SCH (04:02)
[2018-07-09 05:21] LABS: PLATELET COUNT 194 10^3/uL (150-400)
[2018-07-09] MEDS: PANTOPRAZOLE SODIUM 40 MG TAB PO SCH ×2 (08:56→20:22)
[2018-07-09] MEDS: DOXYCYCLINE HYCLATE 100 MG CAP/TAB PO SCH ×2 (08:56→20:22)
[2018-07-09] MEDS: POTASSIUM Cl (KCl) 100 ML IV SCH (08:56)
[2018-07-09] MEDS: HYDROCORTISONE 10 MG TAB PO SCH ×2 (08:56→20:22)
[2018-07-09] MEDS: ENOXAPARIN 40 MG/0.4 ML SYR SC SCH (08:56)
[2018-07-09] MEDS: ESCITALOPRAM OXALATE 10 MG TAB PO SCH (08:57)
[2018-07-09] MEDS: CALCITONIN 200 UNITS/SPRAY INH EACHNARE SCH ×2 (08:58→09:20)
[2018-07-09] MEDS: LIDOCAINE 4%/MENTHOL 1% PATCH TD SCH (08:58)
[2018-07-09] MEDS: K EFFERVESCENT PO SCH ×2 (08:58→20:36)
--- NOTE | 2018-07-09 10:59 | SOAPPROG ---
SOAP Progress Note Assessment/Plan: Assessment: 1. N/V/dysphagia - seems somewhat improved today - patient anxious to try and eat more - has multiple questions/concerns about food consistency choices 2. Pleural effusion - w/u ongoing Plan: 1. ok to advance diet 2. but, will ask speech pathology to evaluate as well. Patient is concerned about cough/choke/aspiration with meals and when ahving regurgitation 3. hope for dc home soon, pending pulmonary w/u 4. hope to get manometry testing completed next week - will follow, call with questions 07/09/18 10:56 Subjective: CC: n/v S: feeling better with less nausea tolerating some po, in small amounts no cp no sob no fever Objective: Vital Signs Temp Pulse Resp BP Pulse Ox 36.5 C 67 16 140/70 H 97 07/09/18 08:00 07/09/18 08:00 07/09/18 08:00 07/09/18 08:00 07/09/18 08:00 Laboratory Results 07/09/18 04:20 07/09/18 04:20 07/08/18 07/09/18 07/10/18 05:59 05:59 05:59 Intake Total 0 2535 Output Total 350 100 Balance 0 2185 -100 Physical Exam - Physical Exam General Appearance: alert EENT: PERRL/EOMI Neck: supple Respiratory: normal breath sounds Cardiac/Chest: regular rate, rhythm Abdomen: normal bowel sounds, non-tender, soft Skin: normal color Extremities: normal range of motion ICD10 Worksheet Patient Problems: Problems Problem Status Onset Abdominal pain Acute Bacteremia due to Staphylococcus aureus Acute Lumbar discitis Acute Nausea and vomiting Acute Vertebral osteomyelitis Acute
[2018-07-09] MEDS ORDERED: IOPAMIDOL (ISOVUE-300) 100 ML BTL ONE (16:43)
--- NOTE | 2018-07-09 16:53 | HOSPPROG ---
Hospitalist Progress Note Assessment/Plan: 73 yo F w recurrent pleural effusion, dysphagia, esophageal stricture pleural effusion: remains unexplained not chf or cirrhosis could be sympathetic from resolving vertebral process (i've seen this) unlikely CA although cytology from recent thoracentesis was never run 1. chest CT 2. check inflammatory markers 3. pulm consult 4. VATS W bx would provide dx, but may be worth following a bit longer anemia: new no melena no source on upper endoscopy check iron studies colonoscopy if fe deficient dysphagia: appears to have resolved adat manometry next week hypomag: resolved h/o spinal osteo: suppressive doxy proph: [facility] dispo: inpt Subjective: egd pretty unremarkable. case d/w dr harper. numerous previous cxr' s reviewed Objective: Vital Signs Temp Pulse Resp BP Pulse Ox 36.5 C 69 16 117/63 99 07/09/18 08:00 07/09/18 16:03 07/09/18 16:03 07/09/18 16:03 07/09/18 16:03 Laboratory Results 07/09/18 04:20 07/09/18 04:20 07/08/18 07/09/18 07/10/18 05:59 05:59 05:59 Intake Total 0 2535 Output Total 350 100 Balance 0 2185 -100 - Physical Exam Constitutional: no apparent distress, appears nourished Eyes: PERRL, EOMI Ears, Nose, Mouth, Throat: moist mucous membranes, hearing normal Cardiovascular: regular rate and rhythym, no murmur, rub, or gallop Respiratory: no respiratory distress, no rales or rhonchi Gastrointestinal: normoactive bowel sounds, soft, non-tender abdomen Genitourinary: no bladder fullness, No crabtree in urethra Skin: warm, normal color Musculoskeletal: full muscle strength, no muscle tenderness Neurologic: AAOx3 ICD10 Worksheet Patient Problems: Problems Problem Status Onset Abdominal pain Acute Bacteremia due to Staphylococcus aureus Acute Lumbar discitis Acute Nausea and vomiting Acute Vertebral osteomyelitis Acute
[2018-07-09] MEDS ORDERED: diphenhydrAMINE 25 MG CAP PO ONE (20:31)
[2018-07-09] MEDS: PATCH REMOVAL 1 EA PATCH TD SCH (20:36)
[2018-07-10] MEDS: POTASSIUM Cl (KCl) 100 ML IV SCH ×2 (04:14→05:43)
[2018-07-10] MEDS: DOXYCYCLINE HYCLATE 100 MG CAP/TAB PO SCH ×2 (08:32→21:35)
[2018-07-10] MEDS: ESCITALOPRAM OXALATE 10 MG TAB PO SCH (08:32)
[2018-07-10] MEDS: ENOXAPARIN 40 MG/0.4 ML SYR SC SCH (08:33)
[2018-07-10] MEDS: PANTOPRAZOLE SODIUM 40 MG TAB PO SCH ×2 (08:33→21:36)
[2018-07-10] MEDS: CALCITONIN 200 UNITS/SPRAY INH EACHNARE SCH (08:53)
[2018-07-10] MEDS: LIDOCAINE 4%/MENTHOL 1% PATCH TD SCH (08:59)
[2018-07-10] MEDS: HYDROCORTISONE 10 MG TAB PO SCH ×3 (09:00→21:36)
[2018-07-10] MEDS: K EFFERVESCENT PO SCH ×2 (10:01→22:46)
--- NOTE | 2018-07-10 10:42 | SOAPPROG ---
SOAP Progress Note Assessment/Plan: Assessment: 1. N/V/dysphagia - doing better after EGD with dilation - per patient, no dietary restrictions based on speech path eval 2. Pleural effusion - w/u ongoing 3. anemia - likely nutritional - normocytic - fe testing pending Plan: 1. ok to advance diet 2. will f/u with GI as outpt 3. has manometry testing at [facility] next week 4. recommend PPI QD upon dc 5. can f/u fe testing/anemia as outpt and overall suspect AOCD (given low alb, normal MCV) - will sign off, call with questions. 07/10/18 10:41 Subjective: CC: dysphagia S: doing better tolerating eggs and toast no nausea still with some pill dysphagia no fever breathing better Objective: Vital Signs Temp Pulse Resp BP Pulse Ox 36.5 C 71 20 137/85 H 91 L 07/10/18 03:15 07/10/18 07:38 07/10/18 07:38 07/10/18 07:38 07/10/18 07:38 Laboratory Results 07/09/18 04:20 07/10/18 09:04 07/09/18 07/10/18 07/11/18 05:59 05:59 05:59 Intake Total 2535 1600 Output Total 350 500 Balance 2185 1100 ICD10 Worksheet Patient Problems: Problems Problem Status Onset Abdominal pain Acute Bacteremia due to Staphylococcus aureus Acute Lumbar discitis Acute Nausea and vomiting Acute Vertebral osteomyelitis Acute
[2018-07-10] MEDS ORDERED: K PHOS 10 MMOL in D5W 250 ML IV ONE (12:00)
[2018-07-10 12:35] LABS: PLATELET COUNT 232 10^3/uL (150-400)
--- NOTE | 2018-07-10 12:39 | HOSPPROG ---
Hospitalist Progress Note Assessment/Plan: 73 yo F w recurrent pleural effusion, dysphagia, esophageal stricture pleural effusion, unclear etiology -cytology from recent thoracentesis was never run -pulm consulted, discussed with Dr Weiner -symptomatic when active, stable currently weakness/poor mobility -likely multifactorial -PT/OT working with her -has a physician assistant primary care but would benefit from SNF anemia, new -no melena -no source on upper endoscopy -stable and iron nl -needs FU/eval as an outpt dysphagia -improved s/p dilation at endoscopy -has esophageal manometry planned at [facility] next week hypomag -resolved Old with new spinal compression fractures, osteoporosis -Dr Watson asked to review CT chest showing new/worsening areas Chronic secondary adrenal insuff -home meds -watch electrolytes and BPs closely Hypoalbuminemia -computer terminal operator/nutrition to assist DVT denise reece DNR PCP in [place] Dispo > 2 mdts bc of ongoing weakness, discussion of SNF/dispo Subjective: Denies SOB. Having significant back pain, worried has new compression fractures. Has home care, lives in [place]. Has seen specialists in [place] and [facility] for GI/pulm issues prev. Swallowing much better since EGD/dilation. Objective: Vital Signs Temp Pulse Resp BP Pulse Ox 97.7 F 71 20 137/85 H 91 L 07/10/18 03:15 07/10/18 07:38 07/10/18 07:38 07/10/18 07:38 07/10/18 07:38 Laboratory Results 07/10/18 12:16 07/10/18 09:04 07/09/18 07/10/18 07/11/18 11:59 11:59 11:59 Intake Total 2535 1600 Output Total 450 400 Balance 2085 1200 - Time Spent With Patient Time Spent with Patient: greater than 35 minutes Time Spent with Patient: Greater than 35 minutes spent on this patients care, greater than 50% of time spent counseling, educating, and coordinating care regarding the above mentioned plan. - Physical Exam Constitutional: no apparent distress, appears nourished, obese Eyes: PERRL, anicteric sclera Ears, Nose, Mouth, Throat: moist mucous membranes, hearing normal Cardiovascular: regular rate and rhythym Respiratory: no respiratory distress, no rales or rhonchi, reduced air movement (B bases) Gastrointestinal: normoactive bowel sounds, soft, non-tender abdomen Skin: warm, other (1+ B ANNIE) Psychiatric: interacting appropriately (very talkative), not anxious ICD10 Worksheet Patient Problems: Problems Problem Status Onset Abdominal pain Acute Bacteremia due to Staphylococcus aureus Acute Lumbar discitis Acute Nausea and vomiting Acute Vertebral osteomyelitis Acute
--- NOTE | 2018-07-10 14:47 | ASMTCMCOM ---
CM Note CM Note Notes: Spoke with pt in the room during rounds. Pt admitted for recurrent pleural effusions of unknown etiology, dysphagia and esophageal structure. Pt lives in [place] and has caregiver Bonita who has been caring for her 24/03 recently. Pt has son Hannah (Pee) who is her MDPOA. PT is current with [facility] and will return home with their services. Referral sent. Pt concerned for compression fractures due to past falls and current back pain. Pulmonology also to consult today. Discharge date unknown. D/C Plan: Home with 24/03 unskilled and [facility] Date Signed: 07/10/2018 02:38 PM Electronically Signed By:Mera Gabriel
--- NOTE | 2018-07-10 16:10 | GCON ---
PULMONARY CONSULT. DATE OF CONSULTATION: 07/10/2018 HISTORY OF PRESENT ILLNESS: This patient is a 73-year-old female with recurrent pleural effusion. S he has a complex past medical history that includes chronic steroid use for unclear reasons, and paper tester kevin back pain with multiple compression fractures and previous back surgeries including kyphoplasty b oth in March and April of this year. Those were without complications, but in May, she was adm itted to [facility] with a right pleural effusion. She also had difficulty with swallo wing and has had a longstanding history of reflux disease as well as dysphagia and reported things ge tting stuck in her throat for years. She just tolerated this, but when she was admitted in May , ended up with an EGD showing a midesophageal stenosis as well as esophagitis. Her effusion was tap ped at that time. It was thought to be an exudate based primarily on an LDH of 332, [place] [id number] on the pleural fluid, nothing grew on a Gram stain. She had a tiny apical pneumothorax that did not require any intervention. Her workup showed a normal echo at that time. She was seen as an outpatient by Dr. Moreno in mid June, who suggested she be re tapped. This occurred on 06/22, at [facility] and she developed a moderate pneumothorax at that time. The pleural fluid, however, was negative for cytology as well as adenosine deaminase and cultures. And wa s fairly nonspecific. She had a very thorough evaluation at that time including a CT scan of her abd omen and pelvis that did not show any abnormalities. Another normal echocardiogram, normal labs, inc luding SUJATA, rheumatoid factor, CA 19-99. However her CA-125 was markedly elevated at 159 with a norm al range being between 0 and 35. That was felt to be nonspecific and they were not able to find evid ence of malignancy. She was discharged on June 24. She remained relatively stable at home, but h ad failure to thrive, nausea and vomiting with ongoing GI issues and [facility] She has had difficulty swallowing as I said, and this seemed to be gett ing worse. Today she said that her appetite has been terrible over the last several weeks and that s he has had a 40 pound weight loss probably starting over the summer and up until now. Because of the ongoing effusion she has had further evaluation including a CT scan that shows recurrence and worsen ing of this problem. She has bilateral effusions on the CT of her chest, 07/09, right greater than l eft with an additional moderate pericardial effusion. On July 08 she underwent an additional EGD and had dilation done at that time. Biopsies were nonspecific but showed no evidence of malignancy. She is mostly concerned about her chronic back pain and ongoing issues with compression fractures and she has seen Dr. Bailey in the past who has told her that more aggressive surgeries are not appropri ate for her. She denies any shortness of breath at this time. No fevers, chills, or sweats and no c ough and no hemoptysis. She is a lifelong nonsmoker with no underlying lung disease. REVIEW OF SYSTEMS: Otherwise negative. PAST MEDICAL HISTORY: Includes osteomyelitis of her back in December of 2016, which is when her pleural e ffusion 1st was seen on films. It was small on 01/09/2017, but moderate to large on the right on . She has had multiple spinal fractures as described above. She has chronic pain and chronic narcotic dependency, as well as chronic abdominal pain, nausea and vomiting. She has a history of c ollagenous colitis. The pleural effusion as described above. One note suggested this was present as early as 2015. She uses chronic oxygen at night. There is a question of achalasia and anemia of ch ronic disease which was recently diagnosed. She also has hypothyroidism, multinodular goiter, second emir adrenal insufficiency, a history of bacteremia in 2017, hemorrhoids, obesity, vitamin D deficienc y, osteoarthritis, gastroesophageal reflux disease, glaucoma, obstructive sleep apnea. PAST SURGICAL HISTORY: Includes multiple spine surgeries and kyphoplasties as described above. She has also had cataracts removed as well as a . SOCIAL HISTORY: As I said, she is a nonsmoker. FAMILY HISTORY: Includes hypertension and coronary artery disease. CURRENT MEDICATIONS: Include calcitonin, Colace, doxycycline, Lovenox, Lexapro, hydrocortisone 20 mg daily, Zofran Protonix, Phenergan. K effervescent. PHYSICAL EXAM: VITAL SIGNS: She has been afebrile. Her blood pressure 133/87, heart rate 73, respi rations 16, oxygen saturation 98% on 3 L nasal cannula. GENERAL: She is a very pleasant, talkative w gloria who was obese, but lying in bed, comfortable with no apparent distress and able to speak in full sentences without using accessory muscles for breathing. HEENT; Pupils equally round and reactive to light, nonicteric and noninjected. Mucous membranes moist without erythema or exudate. NECK: Supple without adenopathy or jugular vein distention. LUNGS: Breath sounds were clear to auscultation bilat erally without wheezes, rubs or rales. HEART: Regular rate and rhythm without murmurs, rubs, or gall ops that I could tell. ABDOMEN: Soft, nontender, nondistended without evidence of ascites or hepato splenomegaly. EXTREMITIES: Showed what appeared to be nonpitting edema bilaterally which she said enriquez s been present for many years. NEUROLOGIC: Nonfocal, including cranial nerves, deep tendon reflexes . SKIN: Warm and dry, without evidence of rash. OBJECTIVE DATA: A thoracentesis from May 2018 done here with a pH 7.6, protein 2.5, LDH 332, g lucose 71. White count of 12,702, red cells 860. Cytology was negative. Labs from [facility] from 06/22/2018, show a CA-125 of 159. Pleural cultures negative. Serum SUJATA negative. Rheumatoid factor negative. Pleural fluid adenosine deaminase negative. Serum anti CCP negative a nd CA 19-9 negative. She also had an echocardiogram both at [facility] in May an d at [facility] in June that were essentially normal. Her white count today is 5.6, hematocrit 31, platelets of 194. Alkaline phosphatase is 174 and AST 75. Basic metabolic pane l is normal. Albumin is 1.5 to 1.9 with a protein of about 4. Chest x-ray dated 01/09/2017, shows s mall bilateral effusions, 01/17/2017 shows moderate right effusion, small left effusion. On 05/14/20 18, shows persistent right-sided effusion. CT scans dated 07/09/2018, shows bilateral effusions, rig ht greater than left with a moderate pericardial effusion. ASSESSMENT AND PLAN: 1. Recurrent nonspecific exudative effusion. She appears to be reaccumulating and the etiology is u nknown at this time. The presence of CA-125 is somewhat concerning but is nonspecific in this range and certainly does not rule in nor does it rule out malignancy. Tuberculous effusions also can be ch ronic in this situation, but a negative adenosine deaminase as well as lack of exposure history make this highly unlikely. Plus the lack of red cells make both of those diagnoses unlikely as well. It i s possible that she has a trapped lung and did not in fact have a procedural induced pneumothorax whe n her last tap was performed, but only had a trapped lung. It is unclear to me if it is trapped on h er CT scan. Since multiple thoracenteses have failed to produce a diagnosis and she does appear to b e reaccumulating, I suggested she undergo a VATS decortication with pleural biopsy as well as re send ing her fluid for multiple studies which should also include an amylase. She could also undergo a VA TS pleurodesis such that even if a diagnosis was not achieved with the decortication that we could en sure that she is far less likely to reaccumulate her fluid. It is tempting to tie the pleural fluid in with her GI tract, but so far that workup has not produced any unifying diagnosis, but checking a pleural amylase might be of some value. 2. Hypoxemia. It is not clear to me if the pleural effusion is driving this, it certainly could be. She also has known sleep apnea but does sleep with CPAP on a nightly basis and may require oxygen r egardless of the pleural effusion. She should certainly be using incentive spirometry while she is he re. She asked many questions about the possibility of undergoing such surgery. We talked about it i n great detail. I suggested that it was a moderate procedure with fairly low risk and that the risk benefit ratio favors benefit far greater than the risk. She was going to think about it tonight and talk about it with her son and I will return tomorrow. We will discuss it again and proceed from the re. /[id number]/MODL
[2018-07-10] MEDS: MELATONIN 3 MG TAB PO SCH (21:36)
--- NOTE | 2018-07-10 23:02 | GCON ---
NEUROSURGERY CONSULT DATE OF CONSULTATION: 07/10/2018 The patient was seen and evaluated at approximately 8:30 p.m. on the general care floor at [facility]. HPI: Miranda Ramsey is a 73-year-old lady who is well known to me, who has a number of complex medical issues including chronic steroid use, multiple compression fractures, lumbar spine fusion, multiple G I issues, and pleural effusions. She is admitted for other medical reasons, but we have been followi ng her for compression fractures, so therefore we are consulted for these. Her main issues at this p oint seem to be GI and pulmonary related. She has large pulmonary effusions which are of unclear ed ology. She had a new CT of the chest yesterday which better showed these pleural effusions and also showed the T9 and T10 compression fractures which have been known. We originally did T12 and L1 kyph oplasty on her, but then subsequently had to do T11 as she broke the level above only after a couple of weeks after the first kyphoplasty. A couple of weeks after T11, she had new back pain and now has a T10 compression fracture, which is roughly 50% loss of height. The CT scan shows slightly worseni ng loss of height compared to her previous imaging, although it was difficult to compare the x-ray. All in all, it has not progressed much. Last time we had discussed here in the clinic that we would manage these conservatively in a brace given her propensity for breaking the next levels up after the kyphoplasty. Her pain was actually quite well controlled until she fell a couple of weeks ago and s he has had more back pain since that time. I think a lot of her pain is likely muscular as the imagi ng has not worsened significantly. She has no other new neurologic symptoms. REVIEW OF SYSTEMS: A 10-point review of systems is negative other than described above in HPI. PAST MEDICAL HISTORY: 1. Multiple lumbar compression fractures. 2. Lumbar spine fusion. 3. Chronic back pain. 4. Chronic narcotic use. 5. Chronic steroid use. 6. Oxygen dependence. 7. Pleural effusions. 8. Collagenous colitis. 9. Osteoporosis. 10. Obesity. 11. Vitamin D deficiency. 12. Chronic lower extremity edema. 13. Gastroesophageal reflux disease. 14. Obstructive sleep apnea. PAST SURGICAL HISTORY: 1. Bilateral cataract surgery. 2. Lumbar spine decompression fusion. 3. . 4. Tonsillectomy. 5. Kyphoplasty T12 to L1 on 03/20/2018, and T11 on 04/20/2018. 6. Chest tube placement. FAMILY HISTORY: Reviewed with the patient but is noncontributory to this admission. SOCIAL HISTORY: The patient currently denies any alcohol, tobacco, or other drug use. She is widowe d and lives in [place] with a caregiver who is typically accompanying her but is not here today. ALLERGIES: 1. Cefazolin. 2. Gluten. 3. Prochlorperazine. HOME MEDICATIONS: The medications were reviewed in electronic medical record. I do not have any add itions at this time. PHYSICAL EXAM: VITAL SIGNS: Currently she is afebrile with normal stable vital signs. NEUROLOGIC: She is awake, alert, and oriented x3. Speech is clear and fluent. Cranial nerves 2-12 are grossly normal. She has gross 5/5 strength at the deltoid, biceps, triceps, wrist flexion, extension, and gr ip bilaterally. In the lower extremities, she has gross strength of 5/5 at the hip flexors, extensor s, knee flexors, extensors, and plantar and dorsiflexion. She is grossly weak given her current medi ricardo state, but I do not see any focal weakness anywhere. Her sensation is grossly normal, although i s diminished in the distal extremities consistent with neuropathy. IMAGING REVIEW: See HPI. ASSESSMENT/PLAN: Miranda Ramsey is a 73-year-old lady who has had multiple lumbar and thoracic compress ion fractures, who has severe osteoporosis. She has multiple severe medical issues and we have discu ssed the management of her compression fractures in the past, but have elected to manage these this t francesco with bracing due to the worsening of her other medical status. At this time, her pain is rather moderate, so I would recommend pain medication control and bracing for comfort when she is out of bed . The brace is not needed to be worn while she is in bed or out of bed if it is uncomfortable for he r. I do not think that the risk/benefit ratio would be favorable in terms of doing any more kyphopla sties at this time given her pulmonary effusions and poor nutritional status. We will follow along p eripherally while she is here in the hospital and please let us know if there is anything with her ba ck that would require more therapy but her other issues would take priority over this. Otherwise, we will set her up with a followup appointment in the clinic within the next 4-6 weeks to see how she i s doing. Thanks very much for the kind consultation. /[id number]/MODL
[2018-07-10] MEDS: PATCH REMOVAL 1 EA PATCH TD SCH (23:04)
[2018-07-11 05:36] LABS: PLATELET COUNT 226 10^3/uL (150-400)
[2018-07-11] MEDS: HYDROCORTISONE 10 MG TAB PO SCH ×2 (09:48→21:23)
[2018-07-11] MEDS: ESCITALOPRAM OXALATE 10 MG TAB PO SCH (09:48)
[2018-07-11] MEDS: PANTOPRAZOLE SODIUM 40 MG TAB PO SCH ×2 (09:48→21:23)
[2018-07-11] MEDS: DOXYCYCLINE HYCLATE 100 MG CAP/TAB PO SCH ×2 (09:48→21:23)
[2018-07-11] MEDS: CALCITONIN 200 UNITS/SPRAY INH EACHNARE SCH (09:49)
[2018-07-11] MEDS: ENOXAPARIN 40 MG/0.4 ML SYR SC SCH (09:49)
[2018-07-11] MEDS: LIDOCAINE 4%/MENTHOL 1% PATCH TD SCH (10:17)
[2018-07-11] MEDS: K EFFERVESCENT PO SCH ×2 (15:25→23:29)
--- NOTE | 2018-07-11 16:23 | PDINTPN ---
Controlled Area Checker Progress Note Assessment/Plan: 73 F with recurrent pleural effusion admitted with FTT. She has also had difficulty with dysphagia, poor appetite and weight loss over the last several months. In 05/2018, she had a pleural effusion found during an admission for esophagitis and refractory GERD. On thoracentesis, she had a pleural LDH of 332 so was diagnosed with an exudate of unclear etiology (complicated by small PTX treated conservatively). A repeat tap by her outpatient layout mechanic resulted in a more substantial PTX resulting in admission to [facility] and additional workup of her effusion. She is now admitted with FTT but I was asked to further eval her chronic effusion. * Chronic pleural effusion- contrary to my initial consult, I think her effusion is mis-labelled as exudate since her pleural/serum LDH ratio was <0.6, her pleural/serum protein ratio was <0.5, and her pleural fluid LDH was far less than "2/3 the upper limit of normal serum LDH (618)." Her work up has also included two unremarkable echos, and the following negative labs: adenosine deaminase, SUJATA, RF, anti-CCP. Cytology on pleural fluid has a sensitivity of 60 % on the first tap and up to 75% on the second and she has no evidence of malignancy on her CT of the chest of abdo/pelvis. The elevated CA-125 is non- specific and can be elevated in pleural effusions, cirrhosis, CHF, SLE, and others. I suspect the etiology is related to her recurrent vertebral fractures and subsequent atelectasis. Her low albumin is likely contributing as well (1.9) , which is probably related to her poor nutritional status. SPEP is pending. Though it seems unlikely, her recurrent GI issues may also be related, but there has never been a pleural amylase to help with that (if she gets tapped again, we should send this test). Her EGD biopsies were all normal. I also suspect her recurrent compression fractures are related to her chronic steroid usage, which is being managed by her outpatient grey inspector. Since she is stable at this time without significant complication related to her effusion, no action is required and she can followup with her outpatient layout mechanic. A VATS is not out of the question, since it could provide additional information and provide a means for successful pleurodesis. I just dont think there is any urgency to this at this time. I'll sign off, but call back if needed for this interesting case. Subjective: feels well except back pain. Denies sob Objective: Vital Signs Temp Pulse Resp BP Pulse Ox 36.8 C 80 16 114/57 L 100 07/11/18 15:16 07/11/18 15:16 07/11/18 15:16 07/11/18 15:16 07/11/18 15:16 Laboratory Results 07/11/18 04:58 07/11/18 04:58 07/10/18 07/11/18 07/12/18 05:59 05:59 05:59 Intake Total 1600 1200 Output Total 500 200 200 Balance 1100 1000 -200 Physical Exam - Physical Exam General Appearance: WD/WN, alert, no apparent distress, obese EENT: PERRL/EOMI, No scleral icterus (R), No scleral icterus (L) Neck: full range of motion, supple Respiratory: lungs clear, normal breath sounds, decreased breath sounds, No respiratory distress, No accessory muscle use Cardiac/Chest: regular rate, rhythm, edema Abdomen: non-tender, soft, No distended, No guarding Skin: normal color, warm/dry, No cyanosis Lymphatic: no adenopathy Extremities: pedal edema Neuro/Psych: alert, normal mood/affect, oriented x 3 ICD10 Worksheet Patient Problems: Problems Problem Status Onset Abdominal pain Acute Bacteremia due to Staphylococcus aureus Acute Lumbar discitis Acute Nausea and vomiting Acute Vertebral osteomyelitis Acute
[2018-07-11] MEDS: MELATONIN 3 MG TAB PO SCH (21:23)
[2018-07-11] MEDS: diphenhydrAMINE 25 MG CAP PO PRN (21:26)
[2018-07-11] MEDS: PATCH REMOVAL 1 EA PATCH TD SCH (23:30)
[2018-07-12 05:17] LABS: PLATELET COUNT 220 10^3/uL (150-400)
--- NOTE | 2018-07-12 09:33 | HOSPPROG ---
Hospitalist Progress Note Assessment/Plan: 73 yo F w recurrent pleural effusion, dysphagia, esophageal stricture pleural effusion, unclear etiology -revwd Dr Weiner's consult/notes -pt/son do NOT want VATS/surgical intervention at this time -I suggested SNF so not at higher [place], can work on deconditioning prior to any surgical interventions, her and son agreed and would like to FU with Dr Weiner as o/p to discuss further -stable per CXR weakness/decreased mobility -likely multifactorial -PT/OT working with her -agrees to SNF anemia, new -no melena -no source on upper endoscopy -stable and iron nl -needs FU/eval as an outpt dysphagia -improved s/p dilation at endoscopy -has esophageal manometry planned at [facility] next week hypomag/hypophos/hypoK -resolved/watch closely Old with new spinal compression fractures -Dr Watson's help appreciated -non surgical at this time -pain improved Chronic secondary adrenal insuff -home meds -watch electrolytes and BPs closely Hypoalbuminemia -UNCLEAR ETIOLOGY -cloth shader in room this PM discussing with her Elevated CA 125 -discussed informally with heme/onc -non specific -has FU planned with GI at [place] already -neg CT scans 05/2018 ANNIE -bilateral -SCDs on, TEDs ordered DVT prophy lovenox DNR PCP in [place] Dispo > 2 mdts bc of ongoing weakness, SNF Long discussion with son Pee by phone discussing care plan, would like to talk with CM re SNF Subjective: Caregiver in room. Son not in room, but spoke to him by phone for > 15 mins reviewing care plan. She says back pain improved. Eating OK but very concerned re nutritional status. Does NOT want to proceed with VATS or other surgical options at this time. Concerned re swelling in legs. Objective: Vital Signs Temp Pulse Resp BP Pulse Ox 98.1 F 67 14 125/99 H 97 07/12/18 07:29 07/12/18 07:29 07/12/18 07:29 07/12/18 07:29 07/12/18 07:29 Laboratory Results 07/12/18 04:58 07/12/18 04:58 07/10/18 07/11/18 07/12/18 11:59 11:59 11:59 Intake Total 1600 1200 750 Output Total 400 400 200 Balance 1200 800 550 - Time Spent With Patient Time Spent with Patient: greater than 35 minutes Time Spent with Patient: Greater than 35 minutes spent on this patients care, greater than 50% of time spent counseling, educating, and coordinating care regarding the above mentioned plan. - Physical Exam Constitutional: no apparent distress, not in pain, obese Eyes: PERRL, anicteric sclera Ears, Nose, Mouth, Throat: moist mucous membranes, hearing normal Cardiovascular: regular rate and rhythym Respiratory: no respiratory distress, no rales or rhonchi, reduced air movement (Bbases) Gastrointestinal: normoactive bowel sounds, soft, non-tender abdomen Skin: warm, normal color, other (1-2+ B ANNIE, in SCDs) Psychiatric: interacting appropriately, not encephalopathic, thought process linear, anxious ICD10 Worksheet Patient Problems: Problems Problem Status Onset Abdominal pain Acute Bacteremia due to Staphylococcus aureus Acute Lumbar discitis Acute Nausea and vomiting Acute Vertebral osteomyelitis Acute
[2018-07-12] MEDS: HYDROCORTISONE 10 MG TAB PO SCH ×2 (11:43→21:38)
[2018-07-12] MEDS: ENOXAPARIN 40 MG/0.4 ML SYR SC SCH (11:43)
[2018-07-12] MEDS: ESCITALOPRAM OXALATE 10 MG TAB PO SCH (11:44)
[2018-07-12] MEDS: DOXYCYCLINE HYCLATE 100 MG CAP/TAB PO SCH ×2 (11:44→21:38)
[2018-07-12] MEDS: PANTOPRAZOLE SODIUM 40 MG TAB PO SCH ×2 (11:44→21:38)
[2018-07-12] MEDS: CALCITONIN 200 UNITS/SPRAY INH EACHNARE SCH (11:45)
[2018-07-12] MEDS: K EFFERVESCENT PO SCH ×2 (12:24→21:41)
[2018-07-12] MEDS: LIDOCAINE 4%/MENTHOL 1% PATCH TD SCH (12:24)
--- NOTE | 2018-07-12 15:55 | ASMTCMCOM ---
CM Note CM Note Notes: Spoke MD, she does not feel pt is appropriate to return home with homecare and caregiver. CM spoke with pt's son Pee and he agrees that pt needs snf, would like referrals to go to [facility] in [place]. DC Plan: SNF Date Signed: 07/12/2018 03:54 PM Electronically Signed By:Yin Venegas RN
[2018-07-12] MEDS: LACTASE 3,000 UNIT TAB PO PRN (18:50)
[2018-07-12] MEDS: PATCH REMOVAL 1 EA PATCH TD SCH (20:27)
[2018-07-12] MEDS: MELATONIN 3 MG TAB PO SCH (21:38)
[2018-07-12] MEDS: diphenhydrAMINE 25 MG CAP PO PRN (21:54)
--- NOTE | 2018-07-13 02:06 | HOSPPROG ---
Hospitalist Progress Note Assessment/Plan: 73 yo F w recurrent pleural effusion, dysphagia, esophageal stricture pleural effusion, unclear etiology -revwd Dr Weiner's consult/notes (he signed off yesterday) -pt/son do NOT want VATS/surgical intervention at this time -SNF so not at higher altitude, can work on deconditioning prior to any surgical interventions, her and son would like to FU with Dr Weiner as o/p to discuss further -stable per CXR weakness/decreased mobility -likely multifactorial -PT/OT working with her -agrees to SNF anemia, new -no melena -no source on upper endoscopy -stable and iron nl -needs FU/eval as an outpt dysphagia -improved s/p dilation at endoscopy -has esophageal manometry planned at [facility] next week hypomag/hypophos/hypoK -resolved/watch closely Old with new spinal compression fractures -Dr Watson's help appreciated -non surgical at this time -pain improved Chronic secondary adrenal insuff -home meds -watch electrolytes and BPs closely Hypoalbuminemia -UNCLEAR ETIOLOGY -quarter trimmer assistance appreciated Elevated CA 125 -discussed informally with heme/onc -non specific -has FU planned with GI at [facility] already -neg CT scans 05/2018 ANNIE -bilateral -SCDs on, TEDs ordered -one time IV lasix tomorrow -K+ ordered IV to replace as anticipated to drop and difficult to replace PO -pharmacist discussing potassium options/concerns with her DVT denise reece DNR PCP in [place] Dispo possible discharge Fri vs depending upon labs s/p lasix IV tomorrow Long discussion with emily Glasgow by phone discussing care plan yesterday, asked CM to contact him/arrange SNF Subjective: Overall feels OK but worried about leg swelling/wt gain. Had been on lasix prev, but difficult to keep potassium up, having trouble now with nausea from K effervescent milked with ensure. Asking for lactaid. No CP/SOB. Back pain OK. Objective: Vital Signs Temp Pulse Resp BP Pulse Ox 98.0 F 79 16 157/71 H 98 07/12/18 20:00 07/12/18 20:00 07/12/18 20:00 07/12/18 20:00 07/12/18 20:00 Laboratory Results 07/12/18 04:58 07/12/18 18:00 07/11/18 07/12/18 07/13/18 11:59 11:59 11:59 Intake Total 1200 750 Output Total 400 200 Balance 800 550 - Time Spent With Patient Time Spent with Patient: greater than 35 minutes Time Spent with Patient: Greater than 35 minutes spent on this patients care, greater than 50% of time spent counseling, educating, and coordinating care regarding the above mentioned plan. - Physical Exam Constitutional: no apparent distress, appears nourished, obese Eyes: PERRL, anicteric sclera Ears, Nose, Mouth, Throat: moist mucous membranes, hearing normal Cardiovascular: regular rate and rhythym Respiratory: no respiratory distress, no rales or rhonchi, clear to auscultation , reduced air movement (B LL) Gastrointestinal: normoactive bowel sounds, soft, non-tender abdomen Skin: other (2+ B edema, no erythema/skin breakdown, not in SCDs or TEDS) Psychiatric: interacting appropriately, not anxious, not encephalopathic, thought process linear ICD10 Worksheet Patient Problems: Problems Problem Status Onset Abdominal pain Acute Bacteremia due to Staphylococcus aureus Acute Lumbar discitis Acute Nausea and vomiting Acute Vertebral osteomyelitis Acute
[2018-07-13] MEDS ORDERED: FUROSEMIDE 40 MG/4 ML VIAL IVP ONE (08:00)
--- NOTE | 2018-07-13 08:59 | HOSPPROG ---
Hospitalist Progress Note Assessment/Plan: #Chronic pleural effusion -Dr Weiner evaluated and no intervention now #Weakness/decreased mobility -likely multifactorial -PT/OT working with her -agrees to SNF #Normocytic anemia: EGD unrevealing - #Dysphagia: improved s/p dilation at endoscopy.Esophageal manometry planned at [facility] #hypomag/hypophos/hypoK: resolved #Acute on chronic spinal compression fractures: non-surgical at this time -pain improved #Chronic secondary adrenal insuff: home meds #Severe protein caloric malnutrition: Alb 1.9 Dietary consulted -operations administrator assistance appreciated #Elevated CA 125 -discussed informally with heme/onc. FU planned with GI at [facility] -neg CT scans 05/2018 Objective: Vital Signs Temp Pulse Resp BP Pulse Ox 36.5 C 74 16 136/74 H 98 07/13/18 04:00 07/13/18 04:00 07/13/18 04:00 07/13/18 04:00 07/13/18 04:00 Laboratory Results 07/12/18 04:58 07/12/18 18:00 07/12/18 07/13/18 07/14/18 05:59 05:59 05:59 Intake Total 750 Output Total 400 Balance 350 - Physical Exam Constitutional: no apparent distress Eyes: PERRL Ears, Nose, Mouth, Throat: moist mucous membranes Cardiovascular: regular rate and rhythym Respiratory: no respiratory distress Gastrointestinal: normoactive bowel sounds Genitourinary: no bladder fullness Skin: warm Musculoskeletal: full muscle strength Neurologic: AAOx3 ICD10 Worksheet Patient Problems: Problems Problem Status Onset Abdominal pain Acute Bacteremia due to Staphylococcus aureus Acute Lumbar discitis Acute Nausea and vomiting Acute Vertebral osteomyelitis Acute
[2018-07-13] MEDS: LACTASE 3,000 UNIT TAB PO PRN ×2 (09:22→16:09)
[2018-07-13] MEDS: K EFFERVESCENT PO SCH (09:23)
[2018-07-13] MEDS: CALCITONIN 200 UNITS/SPRAY INH EACHNARE SCH (09:24)
[2018-07-13] MEDS: HYDROCORTISONE 10 MG TAB PO SCH (09:25)
[2018-07-13] MEDS: PANTOPRAZOLE SODIUM 40 MG TAB PO SCH (09:26)
[2018-07-13] MEDS: DOXYCYCLINE HYCLATE 100 MG CAP/TAB PO SCH (09:26)
[2018-07-13] MEDS: ESCITALOPRAM OXALATE 10 MG TAB PO SCH (09:26)
[2018-07-13] MEDS: ENOXAPARIN 40 MG/0.4 ML SYR SC SCH (09:34)
[2018-07-13] MEDS: LIDOCAINE 4%/MENTHOL 1% PATCH TD SCH (09:36)
--- NOTE | 2018-07-13 12:59 | PDIAF ---
- Diagnosis Diagnosis: pleural efffusion Code Status: Do Not Resuscitate - Medication Management Discharge Medications: electronically signed and located in the Home Medication List. - Orders Diet Recommendation: fluid restriction (use comment for amount) (1500ml ) Diet Texture: Dysphagia 1 - Pureed, [place] Thick Liquids, Meds Whole w/Liquids - Labs/Radiology BMP Date: 07/14/18 (monitor K with Lasix) - Follow Up Care Current Providers and Referrals: Patient,NotPresent [Primary Care Provider] -
[2018-07-13] MEDS: POTASSIUM Cl (KCl) 100 ML IV SCH ×2 (13:10→14:24)
--- NOTE | 2018-07-13 13:29 | GDS ---
DISCHARGE DIAGNOSES: 1. Dysphagia. 2. Weakness. 3. Thoracic spine compression fractures. 4. Chronic back pain. 5. Chronic opioid dependency. 6. Constipation. 7. Chronic abdominal pain with nausea and vomiting. 8. Chronic right-sided pleural effusion. 9. Chronic hypoxemic respiratory failure. 10. Collagenous colitis. 11. Hypothyroidism. 12. Secondary adrenal insufficiency. 13. 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 14. Osteoporosis. 15. Obesity. 16. Hemorrhoids. 17. Vitamin D deficiency. 18. Osteoarthritis. 19. Chronic lower extremity edema. 20. Gastroesophageal reflux disease. CONSULTATIONS: 1. GI. 2. Pulmonology. PROCEDURES: 07/08/2018: EGD, normal duodenum. Gastritis was biopsied. Normal esophagus, biopsied and dilated. Negative for H pylori. HISTORY OF PRESENT ILLNESS: A 73-year-old female with multiple medical problems, including chronic b ack pain, right-sided pleural effusion and chronic hypoxemic respiratory failure, presenting with vom iting and decreased p.o. intake. She was hospitalized 05/19, treated for esophagitis with stenosis c omplicated by an apical pneumothorax. She was then treated at [facility] June 22-, where she again had a right-sided pneu mothorax with recurrent pleural effusion. At that time, she was noted to have an elevated CA-125. E cho showed normal EF. HOSPITAL COURSE BY PROBLEM: 1. Dysphagia: Underwent EGD, showed some gastritis. Esophagus was dilated. Negative H pylori. jackson is now eating after dilation. She has a followup with GI at [facility] 07/14 for esophage al manometry. 2. Chronic pleural effusion: Dr. Weiner evaluated and does not think a VATS or surgery is warranted at this time. Will follow up as an outpatient. 3. Anemia. No evidence of bleed on upper endoscopy. No melena. Will need followup outpatient. 4. Hypomagnesemia/hypophosphatemia/hypokalemia. This resolved. 5. Acute on chronic thoracic compression fractures: Nonsurgical. 6. Chronic secondary adrenal insufficiency. Continue home medications. 7. Severe protein-caloric malnutrition. Albumin 1.9. SPEP showing nonspecific hyperproteinemia. 8. Elevated CA-125. This was discussed informally with Heme-Onc, can be nonspecific. She has a fol lowup with [facility] tomorrow. She had negative scans in May. 9. Lower extremity edema. Will start low-dose Lasix with serial BMP to monitor for hypokalemia. 10. 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 She is follow ed by Dr. Serrano. Continue suppressive doxycycline. 11. Patient is medically stable for discharge to SNF. FOLLOWUP: 1. GI with [facility] tomorrow for esophageal manometry. 2. BMP while diuresing. 3. Follow up with Dr. Weiner with Pulmonology. 4. PCP. 5. Elevated CA-125. Again, follow up with GI. Time spent on discharge: Greater than 30 minutes, coordinating discharge with Case Management, brent appiah with patient. /[id number]/MODL
[2018-07-13 15:16] VITALS: BP 147/92
[2018-07-13 16:14] LABS: HEPATITIS C ANTIBODY TOTAL NEGATIVE (NEGATIVE)
== END 2018-07-13 18:08 | DRG 391 ==
LOC: F1N 17:28
PROVIDERS: ADMIT Family Medicine; ATTEND Family Medicine
PROC: 0DB98ZX Excision of Duodenum, Via Natural or Artificial Opening Endoscopic, Diagnostic (ICD-10-PCS; principal; 2018-07-08 11:00)
PROC: 0D758ZZ Dilation of Esophagus, Via Natural or Artificial Opening Endoscopic (ICD-10-PCS; principal; 2018-07-08 11:00)
PROC: 0DB68ZX Excision of Stomach, Via Natural or Artificial Opening Endoscopic, Diagnostic (ICD-10-PCS; principal; 2018-07-08 11:00)
PROC: 0DB58ZX Excision of Esophagus, Via Natural or Artificial Opening Endoscopic, Diagnostic (ICD-10-PCS; principal; 2018-07-08 11:00)
DX: R13.10 Dysphagia, unspecified (principal); J90 Pleural effusion, not elsewhere classified; E43 Unspecified severe protein-calorie malnutrition; K29.70 Gastritis, unspecified, without bleeding; R97.1 Elevated cancer antigen 125 [CA 125]; E27.40 Unspecified adrenocortical insufficiency; K21.9 Gastro-esophageal reflux disease without esophagitis; M48.54XD Collapsed vertebra, not elsewhere classified, thoracic region, subsequent encounter for fracture with routine healing; E03.9 Hypothyroidism, unspecified; E66.9 Obesity, unspecified; E55.9 Vitamin D deficiency, unspecified; Z79.52 Long term (current) use of systemic steroids; Z79.891 Long term (current) use of opiate analgesic; Z99.81 Dependence on supplemental oxygen; Z66 Do not resuscitate; Z98.1 Arthrodesis status
CPT/HCPCS: 86304-90; 92610-GN; 97110-GP; 97116-GP; 97162-GP; 97165-GO; 97530-GP; 97535-GO; G0472; G8978-GP-CJ; G8979-GP-CI; G8987-GO-CL; G8988-GO-CJ; G8996-GN-CI; G8997-GN-CI; G8998-GN-CI; J1650; J1940; J2704; J3475; J3480; Q9967